=== PATIENT | male | born 1945 | race Caucasian/White ===

== ENCOUNTER → 2016-10-10 | Outpatient (CLI) | payer MEDICARE, OTHER ==
[~2016-10-10] MED LIST: ACHD5005 PO; ALPH1TAB8 PO; ASP325TEC; ASP81TEC PO; CARV6.25; CATHETER FLUSH 10 ML SYR IV PRN; CEPH500C PO; CLOP75TA PO; CLPD75T; CRV6.25T; CTLP20T; FEXO-104 PO; FISH OIL 1,2001 EAC1 PO; FLUT16SP22 NS; GLUC1000 PO; GLUCOSAMINE PO; HYDR-34 PO; HYDR-3812 PO; HYDR-508 PO; IOHEXOL 350 MG/ML 100 ML (OMNIPAQUE 350) VIAL IV ONE; IPRA15SP2; IPRA15SP2 NS; L.AC1CAP6 PO; LAXATIVE OTC; LISI2.5T56 PO; LISINOPRIL 2.5MG; LVT.05T PO; METO25TA PO; METR500T PO; NF-ESOM40C; NFR150C; NS 100 ML (IVPB) BAG IV ONE; NTR.4SL; NTR.4SL SL; OMG1KC; OMG1KC PO; OXYC-12 PO; PARO20TA57 PO; SIME125T PO; SIMV40TA2; SIMV40TA4 PO; SIMV80TA3 PO; SULF1TAB35 PO; TYLENOL #3 PO
[2016-10-10 08:50] LABS: CREATININE SERUM 1.31 MG/DL (0.60-1.30)
--- NOTE | 2016-10-10 13:05 | Diagnostic Imaging Report ---
PROCEDURE: CT abdomen with and without contrast. TECHNIQUE: Multiple contiguous axial CT images of the abdomen were obtained prior to and after intravenous administration of iodinated contrast. INDICATION: Aneurysm. FINDINGS: The previous CTA abdomen/pelvis exam of 02/04/2014 noted a stent within the superior mesenteric artery. The stent is again evident on this study and remains unchanged in position. 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 The infrarenal abdominal aorta itself is somewhat more prominent than noted on the prior exam, but the aorta is not aneurysmally dilated. The aorta measures approximately 2.5 x 2.8 cm in maximum AP and transverse diameters. 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 This vessel measures 1.6 x 1.8 cm. The right renal artery is unremarkable. 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 The celiac axis is within normal limits. The liver is homogeneous and not enlarged. The spleen is surgically absent. The splenules adjacent to the tail of the pancreas seen previously are again evident and no different. The pancreas itself is unremarkable. The right adrenal gland and the right kidney also seem stable when compared to the prior exam. There are multiple cysts associated with the right kidney. The gallbladder is within normal limits. The appendix is not abnormally thickened. The stomach is not fully distended and consequently difficult to assess. There is a small defect in the anterior abdominal wall. A portion of the mesenteric fat has extended through this defect, but there is no incarceration or obstruction of the bowel. As noted on the prior exam, there is diverticulosis of the sigmoid and descending colon without evidence for acute diverticulitis. The urinary bladder and prostate gland are grossly unremarkable. The lung bases are clear. The post-traumatic changes involving the lower thorax on the right seen previously are again evident and unchanged. There is no sign of an acute bony abnormality. IMPRESSION: 1. There is no acute abnormality of the abdomen or pelvis. 2. 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 3. There is mild dilatation of the abdominal aorta when compared to the prior exam, but there is no sign of an aneurysm. There does seem to be mild aneurysmal dilatation of the right common iliac artery, however. 4. The left kidney and spleen are surgically absent. Dictated by: Dictated on workstation # [id number]
--- OUTSIDE RECORDS SUMMARY | 2016-10-10 13:14 | XMS REPORT | Continuity of Care Document ---
Author Author [facility] Organization [facility] Address Unknown Phone Unavailable Allergies Active Description Code Type Severity Reaction Onset Reported/Identified Relationship to Patient Clinical Status Yes Penicillins [id number] Drug Allergy Unknown N/A 08/30/2006 Medications Problems Date Dx Coded Attending Type Code Diagnosis Diagnosed By 07/29/2009 Ot 472.1 07/29/2009 Ot 530.11 07/29/2009 Ot 535.40 07/29/2009 Ot 535.50 07/29/2009 Ot V45.89 03/01/2010 Ot 413.9 03/01/2010 Ot 414.01 03/01/2010 Ot 414.2 03/01/2010 Ot 786.05 03/01/2010 Ot 794.31 03/01/2010 Ot V58.66 03/01/2010 Ot V58.69 09/06/2010 Ot 726.2 02/11/2011 Ot 441.02 02/11/2011 Ot 562.11 02/11/2011 Ot 569.5 02/11/2011 Ot V10.52 02/11/2011 Ot V45.73 08/01/2011 Ot 842.10 08/01/2011 Ot E000.0 08/01/2011 Ot E849.7 08/01/2011 Ot E927.0 08/01/2011 Ot V57.21 08/10/2011 Ot 842.10 08/10/2011 Ot E000.0 08/10/2011 Ot E849.7 08/10/2011 Ot E927.0 08/10/2011 Ot V57.21 03/10/2012 Ot 805.2 03/10/2012 Ot 922.1 03/10/2012 Ot 959.19 03/10/2012 Ot E000.8 03/10/2012 Ot E828.2 03/10/2012 Ot E849.0 05/14/2012 Ot 530.85 05/14/2012 Ot 532.90 05/14/2012 Ot 562.10 05/14/2012 Ot 600.00 05/14/2012 Ot V12.72 05/14/2012 Ot V45.89 05/14/2012 Ot V67.09 05/16/2012 Ot 724.2 05/16/2012 Ot 724.4 05/16/2012 Ot 843.9 05/16/2012 Ot E000.8 05/16/2012 Ot E828.2 05/16/2012 Ot E849.0 05/16/2012 Ot V57.1 07/21/2013 JOHN DOSUSAN Ot 726.0 07/21/2013 JOHN DOSUSAN Ot V57.1 08/05/2013 JOHN DOSUSAN Ot 726.2 08/05/2013 JOHN DO, SUSAN Hernandez Ot 727.61 08/05/2013 JOHN DO, SUSAN Hernandez Ot 727.62 11/05/2013 JOHN DOSUSAN Ot V57.1 11/05/2013 JOHN DOSUSAN Ot V58.78 03/26/2014 EUSEBIA BRADY, CHULA Melendez Ot 724.5 03/26/2014 CHULA LAWS MD Ot V57.1 05/05/2014 JOHN DOSUSAN Ot 354.0 05/05/2014 JOHN DOSUSAN Ot 727.03 08/04/2014 JOHN DOSUSAN Ot 717.7 08/04/2014 JOHN DOSUSAN Ot 836.0 08/04/2014 JOHN DOSUSAN Ot E000.8 08/04/2014 JOHN DOSUSAN Ot E928.9 04/30/2015 Ot 410.40 04/30/2015 Ot 414.01 04/30/2015 Ot 780.79 04/30/2015 Ot 189.0 04/30/2015 Ot 789.00 04/30/2015 Ot 715.31 04/30/2015 Ot 272.4 04/30/2015 Ot 414.01 04/30/2015 Ot 433.10 04/30/2015 Ot V58.69 04/30/2015 Ot 727.61 04/30/2015 Ot V72.83 04/30/2015 Ot V74.8 04/30/2015 Ot 189.0 04/30/2015 Ot 188.9 04/30/2015 Ot 257.2 04/30/2015 Ot 272.4 04/30/2015 Ot 401.9 04/30/2015 Ot 600.00 04/30/2015 Ot V58.69 04/30/2015 Ot 189.0 04/30/2015 Ot 557.0 04/30/2015 Ot 562.10 04/30/2015 Ot V45.89 04/30/2015 Ot 786.09 04/30/2015 Ot 786.50 04/30/2015 Ot 906.3 04/30/2015 Ot E000.8 04/30/2015 Ot E849.0 04/30/2015 Ot E929.1 04/30/2015 Ot V72.84 04/30/2015 Ot 786.50 04/30/2015 Ot 959.9 04/30/2015 Ot E000.8 04/30/2015 Ot E819.9 04/30/2015 Ot 285.9 04/30/2015 Ot 414.00 04/30/2015 LEONARDA BRADY, ANGELICA Faulkner Ot 189.0 04/30/2015 [facility]EL [facility]AC[facility] Ot 272.4 04/30/[address] [facility], ALI FACP CCDS Ot 414.01 04/30/2015 LEONARDA BRADY, ANGELICA Faulkner Ot 272.4 04/30/2015 LEONARDA BRADY, ANGELICA Faulkner Ot 414.01 04/30/2015 CHERELLE BARBER [employer] DEFENSE ATTORNEY Ot 433.10 04/30/2015 JOHN DO, SUSAN F Ot 726.0 04/30/2015 JOHN DO, SUSAN F Ot V72.81 04/30/2015 JOHN DO, SUSAN F Ot V74.8 04/30/2015 EUSEBIA BRADY, CHULA Melendez Ot 562.11 04/30/2015 LEONARDA BRADY, ANGELICA Faulkner Ot 189.0 04/30/2015 LEONARDA BRADY, ANGELICA Faulkner Ot 600.00 04/30/2015 CHERELLE BARBER Ot 272.4 04/30/2015 EUSEBIA BRADY, CHULA Melendez Ot 715.36 04/30/2015 EUSEBIA BRADY, CHULA Melendez Ot 719.46 04/30/2015 SOFIYA BRADY, SUSAN Dabry Ot 442.89 04/30/2015 SOFIYA BRADY, SUSAN S Ot 447.70 04/30/2015 SOFIYA BRADY, SUSAN S Ot 553.1 04/30/2015 SOFIYA BRADY, SUSAN S Ot 557.0 04/30/2015 SOFIYA BRADY, SUSAN S Ot 562.10 04/30/2015 SOFIYA BRADY, SUSAN S Ot 442.89 04/30/2015 CHERELLE BARBER INSURANCE DEFENSE ATTORNEY Ot 272.4 04/30/2015 LEONARDA BRADY, ANGELICA Faulkner Ot 189.0 04/30/2015 LEONARDA BRADY, ANGELICA Faulkner Ot 257.2 04/30/2015 LEONARDA BRADY, ANGELICA Faulkner Ot 600.00 04/30/2015 CHERELLE BARBER [employer] DEF[employer] ATTORNEY Ot 276.7 04/30/2015 JOHN DO, SUSAN F Ot 354.0 04/30/2015 JOHN DO, SUSAN F Ot 727.03 04/30/2015 JOHN DO, SUSAN F Ot V72.83 04/30/2015 JOHN DO, SUSAN F Ot V74.8 04/30/2015 LEONARDA BRADY, ANGELICA Faulkner Ot 189.0 04/30/2015 JOHN DO, SUSAN F Ot 717.1 04/30/2015 JOHN DO, SUSAN F Ot 717.2 04/30/2015 JOHN DO, SUSAN F Ot 717.40 04/30/2015 JOHN DO, SUSAN F Ot 717.6 04/30/2015 JOHN DO, SUSAN F Ot 719.06 04/30/2015 JOHN DO, SUSAN F Ot 719.46 04/30/2015 JOHN DO, SUSAN F Ot 717.3 04/30/2015 JOHN DO, SUSAN F Ot 717.40 04/30/2015 JOHN DO, SUSAN F Ot V72.83 04/30/2015 JOHN DO, SUSAN F Ot V74.8 05/07/2015 AJAY BRADY, EARL Miles Ot 722.52 05/07/2015 AJAY BRADY, EARL Miles Ot 724.6 05/07/2015 Ot 410.40 05/07/2015 Ot 414.01 05/07/2015 Ot 780.79 05/07/2015 Ot 189.0 05/07/2015 Ot 789.00 05/07/2015 Ot 715.31 05/07/2015 Ot 272.4 05/07/2015 Ot 414.01 05/07/2015 Ot 433.10 05/07/2015 Ot V58.69 05/07/2015 Ot 727.61 05/07/2015 Ot V72.83 05/07/2015 Ot V74.8 05/07/2015 Ot 189.0 05/07/2015 Ot 188.9 05/07/2015 Ot 257.2 05/07/2015 Ot 272.4 05/07/2015 Ot 401.9 05/07/2015 Ot 600.00 05/07/2015 Ot V58.69 05/07/2015 Ot 189.0 05/07/2015 Ot 557.0 05/07/2015 Ot 562.10 05/07/2015 Ot V45.89 05/07/2015 Ot 786.09 05/07/2015 Ot 786.50 05/07/2015 Ot 906.3 05/07/2015 Ot E000.8 05/07/2015 Ot E849.0 05/07/2015 Ot E929.1 05/07/2015 Ot V72.84 05/07/2015 Ot 786.50 05/07/2015 Ot 959.9 05/07/2015 Ot E000.8 05/07/2015 Ot E819.9 05/07/2015 Ot 285.9 05/07/2015 Ot 414.00 05/07/2015 LEONARDA BRADY, ANGELICA Faulkner Ot 189.0 05/07/2015 CHANTEL BRADY FAC, [facility] CCDS Ot 272.4 05/07/2015 CHANTEL BRADY FAC, ALI FACP CCDS Ot 414.01 05/07/2015 LEONARDA BRADY, ANGELICA Faulkner Ot 272.4 05/07/2015 LEONARDA BRADY, ANGELICA Faulkner Ot 414.01 05/07/2015 CHERELLE BARBER [employer] ATTORNEY Ot 433.10 05/07/2015 JOHN DO, SUSAN F Ot 726.0 05/07/2015 JOHN DO, SUSAN F Ot V72.81 05/07/2015 JOHN DO, SUSAN F Ot V74.8 05/07/2015 EUSEBIA BRADY, CHULA Melendez Ot 562.11 05/07/2015 LEONARDA BRADY, ANGELICA Faulkner Ot 189.0 05/07/2015 LEONARDA BRADY, ANGELICA Faulkner Ot 600.00 05/07/2015 CHERELLE BARBER [employer] ATTORNEY Ot 272.4 05/07/2015 EUSEBIA BRADY, CHULA Melendez Ot 715.36 05/07/2015 EUSEBIA BRADY, CHULA M Ot 719.46 05/07/2015 SOFIYA BRADY, SUSAN S Ot 442.89 05/07/2015 SOFIYA BRADY, SUSAN S Ot 447.70 05/07/2015 SOFIYA BRADY, SUSAN S Ot 553.1 05/07/2015 SOFIYA BRADY, SUSAN S Ot 557.0 05/07/2015 SOFIYA BRADY, SUSAN S Ot 562.10 05/07/2015 SOFIYA BRADY, SUSAN S Ot 442.89 05/07/2015 CHERELLE BARBER [employer] DEFENSE ATTORNEY Ot 272.4 05/07/2015 LEONARDA BRADY, ANGELICA Faulkner Ot 189.0 05/07/2015 LEONARDA BRADY, ANGELICA A Ot 257.2 05/07/2015 LEONARDA BRADY, ANGELICA A Ot 600.00 05/07/2015 CHERELLE BARBER [employer] DEF[employer] ATTORNEY Ot 276.7 05/07/2015 JOHN DO, SUSAN F Ot 354.0 05/07/2015 JOHN DO, SUSAN F Ot 727.03 05/07/2015 JOHN DO, SUSAN F Ot V72.83 05/07/2015 JOHN DO, SUSAN F Ot V74.8 05/07/2015 LEONARDA BRDAY, ANGELICA A Ot 189.0 05/07/2015 JOHN DO, SUSAN F Ot 717.1 05/07/2015 JOHN DO, SUSAN F Ot 717.2 05/07/2015 JOHN DO, SUSAN F Ot 717.40 05/07/2015 JOHN DO, SUSAN F Ot 717.6 05/07/2015 JOHN DO, SUSAN F Ot 719.06 05/07/2015 JOHN DO, SUSAN F Ot 719.46 05/07/2015 JOHN DO, SUSAN F Ot 717.3 05/07/2015 JOHN DO, SUSAN F Ot 717.40 05/07/2015 JOHN DO, SUSAN F Ot V72.83 05/07/2015 JOHN DO, SUSAN F Ot V74.8 05/07/2015 ARABELLA ESCAMILLA [employer] ATTORNEY Ot 724.2 05/20/2015 ARABELLA ESCAMILLA [employer] ATTORNEY Ot 724.2 06/11/2015 VERITO DAVID Ot E78.5 06/11/2015 VERITO DAVID Ot I10 06/11/2015 VERITO DAVID Ot M79.671 06/11/2015 VERITO DAVID Ot Z79.82 06/11/2015 VERITO DAVID Ot Z79.899 06/23/2015 CHERELLE BARBER [employer] DEFENSE ATTORNEY Ot E78.5 06/23/2015 CHERELLE BARBER [employer] DEFENSE ATTORNEY Ot I25.10 06/23/2015 CHERELLE BARBER [employer] DEFENSE ATTORNEY Ot I77.9 06/23/2015 ABHISHEKCHERELLE CLAROS [employer]ENSE ATTORNEY Ot R53.83 12/07/2015 LEYDI BRADY, CARMEN Madsen Ot H11.32 CONJUNCTIVAL HEMORRHAGE, LEFT EYE 12/28/2015 CARMEN HOLLEY MD Ot H11.32 CONJUNCTIVAL HEMORRHAGE, LEFT EYE Procedures Results Encounters ACCT No. Visit Date/Time Discharge Status Pt. Type Provider Facility Loc./Unit Complaint [id number] 12/05/2015 08:51:00 2015 09:41:00 DIS Emergency CARMEN HOLLEY MD [facility] ER [id number] 06/11/2015 17:00:00 2014 20:23:00 DIS Emergency VERITO DAVID [facility] ER [id number] 06/02/2015 08:40:00 2014 23:59:59 CLS Outpatient CHERELLE BARBER [facility] CARD [id number] 05/07/2015 08:24:00 2014 09:22:00 DIS Outpatient EARL MOSS MD [facility] CARD [id number] 04/30/2015 08:20:00 2014 23:59:59 CLS Outpatient ARABELLA ESCAMILLA [facility] RAD [id number] 08/04/2014 07:57:00 2013 13:20:00 DIS Outpatient SUSAN LOPEZ DO [facility] [id number] 07/21/2014 10:20:00 2013 23:59:59 CLS Outpatient JOHN SUSAN DARLING [facility] PREOP [id number] 05/21/2014 15:27:00 2013 23:59:59 CLS Outpatient SUSAN LOPEZ DO [facility] RAD [id number] 05/05/2014 08:30:00 2013 13:25:00 DIS Outpatient SUSAN LOPEZ DO [facility] [id number] 04/28/2014 11:56:00 2013 23:59:59 CLS Outpatient SUSAN LOPEZ DO [facility] PREOP [id number] 04/23/2014 10:55:00 2013 23:59:59 CLS Outpatient ANGELICA BROWER MD [facility] CARD [id number] 03/26/2014 14:28:00 2013 23:59:59 CLS Outpatient CHERELLE BARBER [facility] LAB [id number] 02/03/2014 15:28:00 2013 08:37:00 DIS Outpatient CHULA LAWS MD [facility] REHAB [id number] 03/23/2014 06:57:00 2013 23:59:59 CLS Outpatient CHERELLE BARBER [facility] LAB [id number] 03/23/2014 06:56:00 2013 23:59:59 CLS Outpatient ANGELICA BROWER MD [facility] LAB [id number] 02/04/2014 06:58:00 2013 23:59:59 CLS Outpatient SUSAN ARRIAZA MD [facility] RAD [id number] 02/02/2014 07:36:00 2013 23:59:59 CLS Outpatient SUSAN ARRIAZA MD [facility] LAB [id number] 01/20/2014 15:49:00 2013 23:59:59 CLS Outpatient CHULA LAWS MD [facility] RAD [id number] 10/14/2013 14:09:00 2013 08:30:00 DIS Outpatient JOHN SUSAN DARLING [facility] REHAB [id number] 09/29/2013 07:04:00 2013 23:59:59 CLS Outpatient ABHISHEKHYACINTHCHERELLE [facility] LAB [id number] 09/29/2013 06:56:00 2013 23:59:59 CLS Outpatient ANGELICA BROWER MD [facility] LAB [id number] 08/05/2013 10:57:00 2012 20:00:00 DIS Outpatient JOHN SUSAN DARLING [facility] [id number] 07/31/2013 11:50:00 2012 23:59:59 CLS Outpatient SUSAN LOPEZ DO [facility] PREOP [id number] 07/28/2013 15:49:00 2012 23:59:59 CLS Outpatient CHULA LAWS MD [facility] RAD [id number] 07/01/2013 14:15:00 2012 08:20:00 DIS Outpatient SUSAN LOPEZ DO [facility] REHAB [id number] 05/28/2013 07:53:00 2012 23:59:59 CLS Outpatient CHERELLE BARBER [facility] RAD [id number] 04/08/2013 10:55:00 2012 23:59:59 CLS Outpatient ANGELICA BROWER MD [facility] RAD [id number] 04/03/2013 07:21:00 2012 23:59:59 CLS Outpatient ANGELICA BROWER MD [facility] LAB [id number] 04/03/2013 07:14:00 2012 23:59:59 CLS Outpatient CHANTEL BRADY FACCEPIFANIO FACP CCDS [facility] LAB [id number] 01/28/2013 15:34:00 2012 23:59:59 CLS Outpatient [id number] 10/10/2016 09:15:00 KINSEY Arteaga APRN [facility] RAD HISTORY OF AAA [id number] 04/30/2015 08:21:00 Document Registration [id number] 04/30/2015 08:20:00 Document Registration [id number] 04/30/2015 08:20:00 Document Registration [id number] 04/30/2015 08:20:00 Document Registration [id number] 04/30/2015 08:20:00 Document Registration [id number] 04/30/2015 08:20:00 Document Registration [id number] 04/30/2015 08:20:00 Document Registration [id number] 04/30/2015 08:20:00 Document Registration [id number] 10/16/2014 07:20:00 Document Registration [id number] 12/04/2012 07:33:00 Document Registration [id number] 08/28/2012 09:36:00 Document Registration [id number] 05/16/2012 14:38:00 Document Registration [id number] 05/14/2012 05:36:00 Document Registration [id number] 05/13/2012 08:27:00 Document Registration [id number] 03/10/2012 09:29:00 Document Registration [id number] 08/03/2011 09:30:00 Document Registration [id number] 05/29/2011 11:02:00 Document Registration [id number] 05/23/2011 05:40:00 Document Registration [id number] 02/09/2011 20:23:00 Document Registration [id number] 09/05/2010 05:36:00 Document Registration [id number] 08/31/2010 12:04:00 Document Registration [id number] 08/29/2010 09:50:00 Document Registration [id number] 07/05/2010 09:18:00 Document Registration [id number] 05/31/2010 09:50:00 Document Registration [id number] 03/01/2010 05:33:00 Document Registration [id number] 02/24/2010 08:17:00 Document Registration [id number] 02/15/2010 07:31:00 Document Registration [id number] 07/29/2009 05:49:00 Document Registration
== END ==
LOC: RAD 08:17
PROVIDERS: ATTEND Nurse Practitioner Family
DX: I77.811 Abdominal aortic ectasia (principal); Z13.89 Encounter for screening for other disorder
CPT/HCPCS: 36415; 74170; 82565; 84520

== ENCOUNTER 2017-02-13 08:45 | Outpatient (RCR) | payer MEDICARE, OTHER ==
[~2017-02-13 08:45] MED LIST changes: -CATHETER FLUSH 10 ML SYR IV PRN; -IOHEXOL 350 MG/ML 100 ML (OMNIPAQUE 350) VIAL IV ONE; -NS 100 ML (IVPB) BAG IV ONE
== END 2017-02-13 10:51 | disposition home or self-care (01) ==
PROVIDERS: ATTEND Nurse Practitioner Family
DX: M25.562 Pain in left knee (principal); Z98.890 Other specified postprocedural states

== ENCOUNTER → 2017-09-17 | Outpatient (CLI) | payer MEDICARE, OTHER ==
[~2017-09-17] MED LIST changes: -HYDR-3812 PO
--- NOTE | 2017-09-17 15:39 | Diagnostic Imaging Report ---
PROCEDURE: MRI left upper extremity without contrast. TECHNIQUE: Multiplanar, multisequence non contrast-enhanced MRI of the left upper extremity was accomplished. INDICATION: Palmar left hand pain. Patient sustained injury to the left hand in 1990 with surgical repair. FINDINGS: Postsurgical changes are noted involving the fifth metacarpal. There appears to be surgical hardware producing a moderate amount of artifact. Remaining metacarpals demonstrate normal signal intensity. No marrow edema or fracture is seen. The visualized proximal phalanges appear to be intact. The carpal bones are intact. No marrow edema is detected. An oil marker was placed at the area of pain in the palmar aspect of the left hand. No underlying soft tissue mass or fluid collection is seen. The flexor tendons deep to the marker appear to be intact. IMPRESSION: Postsurgical changes to the fifth metacarpal. No other significant abnormality is detected. Dictated by: Dictated on workstation # [id number]
== END ==
LOC: RAD 13:01
PROVIDERS: ATTEND Orthopaedic Surgery
DX: M79.642 Pain in left hand (principal); Z98.890 Other specified postprocedural states; Z87.828 Personal history of other (healed) physical injury and trauma
CPT/HCPCS: 73218

== ENCOUNTER → 2017-10-23 | Outpatient (CLI) | payer MEDICARE, OTHER | LOC: CARD 12:00 | PROVIDERS: ATTEND Nurse Practitioner Family | DX: I25.10 Atherosclerotic heart disease of native coronary artery without angina pectoris (principal); I34.0 Nonrheumatic mitral (valve) insufficiency | CPT/HCPCS: 93306 ==

== ENCOUNTER 2018-07-23 09:17 | Outpatient (RCR) | payer MEDICARE, OTHER | END 2018-07-26 11:57 | disposition home or self-care (01) | PROVIDERS: ATTEND Nurse Practitioner | DX: M54.41 Lumbago with sciatica, right side (principal) ==

== ENCOUNTER → 2018-08-26 | Outpatient (CLI) | payer MEDICARE, OTHER ==
--- NOTE | 2018-08-26 17:05 | Diagnostic Imaging Report ---
INDICATION: Back pain, no history of trauma. AP and lateral views of the thoracic spine are obtained. The thoracic vertebrae are normal in height and alignment. There are bridging syndesmophytes throughout the thoracic spine compatible with diffuse idiopathic skeletal hyperostosis. There is no compression deformity or overt destructive bony lesion. IMPRESSION: No evidence of fracture, destructive bony lesion, or malalignment. Evidence of diffuse idiopathic skeletal hyperostosis. Dictated by: Dictated on workstation # [id number]
--- NOTE | 2018-08-26 17:52 | Diagnostic Imaging Report ---
INDICATION: Back pain. AP and lateral views of the lumbar spine are obtained. The lumbar vertebrae are normal in height and alignment. There are prominent osteophytes throughout the lumbar region. There is no significant disc space narrowing. There is no compression deformity or acute finding. A presumed SMA stent is visualized. The appearance is not changed compared with 04/30/2015. IMPRESSION: Degenerative changes of the lumbar spine with no acute abnormality and no change from 04/30/2015. Dictated by: Dictated on workstation # [id number]
== END ==
LOC: RAD 16:12
PROVIDERS: ATTEND Physician Assistant
DX: M47.816 Spondylosis without myelopathy or radiculopathy, lumbar region (principal); M48.14 Ankylosing hyperostosis [Forestier], thoracic region
CPT/HCPCS: 72070; 72100

== ENCOUNTER → 2018-11-27 | Outpatient (CLI) | payer MEDICARE, OTHER ==
--- NOTE | 2018-11-27 10:18 | Diagnostic Imaging Report ---
PROCEDURE: MRI lumbar spine. TECHNIQUE: Multiplanar, multisequence MRI of the lumbar spine was performed without contrast. INDICATION: Back pain. There are no previous MRI lumbar spine examinations available for comparison. FINDINGS: The plain film examination of the lumbar spine performed on 08/26/2018 noted osteophyte formation, but failed to show any sign of an acute abnormality. On the T2 sagittal images of this exam, there is slight retrolisthesis of L3 with respect to L4. There is also desiccation of the disc at this level and there is a disc bulge essentially. The AP diameter of thecal sac is narrowed to 9.1 MM. There is mild narrowing of the neural foramen bilaterally as well. There is also trefoil stenosis at the L4-L5 level. The AP diameter of thecal sac is narrowed to 7.4 MM. There is also narrowing of the neural foramen bilaterally, particularly on the left. At the L5-S1 level, there is a disc bulge essentially. The disc indents the ventral aspect of the thecal sac and narrows the AP diameter of 9.4 MM. There is no significant neural foraminal narrowing at this level. There is no evidence for spinal stenosis or nerve root encroachment at L1-L2 or L2-L3. There is no abnormal signal arising from the cord or vertebral bodies to indicate an acute abnormality. All of the osseous structures have somewhat of a mottled appearance. This is more likely a developmental variant than due to a marrow replacement process. There is no sign of a paraspinal mass. IMPRESSION: 1. There is degenerative disc, ligamentous and bony disease at L4-L5, L3-L4 and to a lesser degree at L5-S1. The L4-L5 level appears to be the most significantly affected. 2. There is no sign of an acute bony abnormality or cord lesion. Dictated by: Dictated on workstation # [id number]
== END ==
LOC: RAD 08:22
PROVIDERS: ATTEND Anesthesiology Pain Medicine
DX: M51.17 Intervertebral disc disorders with radiculopathy, lumbosacral region (principal); M89.9 Disorder of bone, unspecified
CPT/HCPCS: 72148

== ENCOUNTER → 2019-06-24 | Outpatient (CLI) | payer MEDICARE, OTHER ==
[~2019-06-24] VITALS: Ht 183 cm; Wt 82.0 kg
[~2019-06-24] MED LIST changes: +FLU QUADRIvalent (5+ YOA) 2019-2020 (AFLURIA) 0.5 ML IM ONE; +REGADENOSON 0.4 MG/5 ML SYR (LEXISCAN) IV ONE
[2019-06-24] MEDS: CATHETER FLUSH 10 ML SYR IV PRN ×2 (12:09→13:07)
[2019-06-24 13:05] VITALS: BP 182/97
--- NOTE | 2019-06-24 14:38 | STRESS TEST ---
DATE OF SERVICE: 06/24/2019 RESTING AND POST REGADENOSON TECHNETIUM-99M TETROFOSMIN SPECT CT IMAGING ORDERING PHYSICIAN: Chantale Joshua APRN PRIMARY PHYSICIAN: Dr. Stark. OTHER PHYSICIAN: Dr. Golden. CLINICAL DIAGNOSIS: Coronary artery disease. Baseline images were carried out after injection of 10.07 mCi of technetium-99m Tetrofosmin. This was followed by 0.4 mg regadenoson and 30.2 mCi of technetium-99m Tetrofosmin. The electrocardiogram showed sinus rhythm at baseline. It did not change significantly with the regadenoson infusion. Review of images at rest and following stress indicates a predominantly fixed apical perfusion defect. Gated images show localized apical akinesis. Left ventricular ejection fraction is calculated to be 59%. Left ventricular end diastolic volume is 67 mL. TID is absent (1.14). CONCLUSIONS: 1. Apical infarction with minimal nima-infarct ischemia. 2. Apical akinesis. 3. Left ventricular ejection fraction is calculated to be 59%. Job ID: [id number] DocumentID: [id number] Dictated Date: 06/24/2019 14:26:59 Claim Approver Date: 06/24/2019 14:36:35 Dictated By: EPIFANIO GOLDEN MD, MA, FACP, FACC,
== END ==
LOC: CARD 11:32
PROVIDERS: ATTEND Nurse Practitioner Family
DX: I21.29 ST elevation (STEMI) myocardial infarction involving other sites (principal); I51.89 Other ill-defined heart diseases; I25.10 Atherosclerotic heart disease of native coronary artery without angina pectoris
CPT/HCPCS: 78452; 93017

== ENCOUNTER 2019-08-27 11:19 | Outpatient (CLI) | payer MEDICARE, OTHER ==
[~2019-08-27] VITALS: Ht 180 cm; Wt 84.1 kg
[~2019-08-27 11:19] MED LIST changes: -FLU QUADRIvalent (5+ YOA) 2019-2020 (AFLURIA) 0.5 ML IM ONE; -REGADENOSON 0.4 MG/5 ML SYR (LEXISCAN) IV ONE
[2019-08-27 11:39] VITALS: BP 125/80
[2019-08-27 12:12] LABS: BASOPHILS # (AUTO) 0.1 10^3/uL (0.0-0.1); BASOPHILS % (AUTO) 1 % (0-10); EOSINOPHILS # (AUTO) 0.5 10^3/uL (0.0-0.3); EOSINOPHILS % (AUTO) 6 % (0-10); HEMATOCRIT 40 % (40-54); HEMOGLOBIN 13.2 G/DL (13.3-17.7); LYMPHOCYTES # (AUTO) 2.7 X 10^3 (1.0-4.0); LYMPHOCYTES % (AUTO) 34 % (12-44); MEAN CORPUSCULAR HEMOGLOBIN 31 PG (25-34); MEAN CORPUSCULAR HGB CONC 33 G/DL (32-36); MEAN CORPUSCULAR VOLUME 96 FL (80-99); MEAN PLATELET VOLUME 10.5 FL (7.4-10.4); MONOCYTES # (AUTO) 1.3 X 10^3 (0.0-1.0); MONOCYTES % (AUTO) 17 % (0-12); NEUTROPHILS # (AUTO) 3.2 X 10^3 (1.8-7.8); NEUTROPHILS % (AUTO) 42 % (42-75); PLATELET COUNT 241 10^3/uL (130-400); RED CELL DISTRIBUTION WIDTH 13.4 % (10.0-14.5); WHITE BLOOD COUNT 7.8 10^3/uL (4.3-11.0)
[2019-08-27 12:13] LABS: BILIRUBIN,URINE NEGATIVE (NEGATIVE); CLARITY,URINE CLEAR; COLOR,URINE YELLOW; GLUCOSE, URINE (UA) NEGATIVE (NEGATIVE); KETONES,URINE NEGATIVE (NEGATIVE); LEUKOCYTE ESTERASE ,URINE NEGATIVE (NEGATIVE); NITRITE,URINE NEGATIVE (NEGATIVE); PH,URINE 5.5 (5-9); PROTEIN,URINE NEGATIVE (NEGATIVE)
[2019-08-27 12:21] LABS: BACTERIA,URINE NEGATIVE /HPF
[2019-08-27 12:26] LABS: INR 1.1 (0.8-1.4); PROTHROMBIN TIME PATIENT 14.6 SEC (12.2-14.7)
[2019-08-27 12:30] LABS: CALCIUM 8.7 MG/DL (8.5-10.1); CREATININE SERUM 1.3 MG/DL (0.60-1.30); POTASSIUM 4.6 MMOL/L (3.6-5.0)
--- NOTE | 2019-08-27 12:35 | Diagnostic Imaging Report ---
INDICATION: Osteoarthritis. PA and lateral views were obtained FINDINGS: The heart size, mediastinal configuration, and pulmonary vascularity are within normal limits. There is no pleural effusion, pneumothorax, or pneumonia. The osseous structures are unremarkable. IMPRESSION: No acute cardiopulmonary abnormality. Dictated by: Dictated on workstation # [id number]
[2019-08-29] MEDS ORDERED: PARO20TA5 PO (12:52)
[2019-08-29] MEDS ORDERED: METO-387 PO (12:52)
[2019-08-29] MEDS ORDERED: ASPI-999 PO (12:52)
[2019-08-29] MEDS ORDERED: NITR0.4T42 SL (12:52)
[2019-08-29] MEDS ORDERED: SIMV40TA4 PO (12:52)
[2019-08-29] MEDS ORDERED: LEVO50TA6 PO (12:52)
[2019-08-29] MEDS ORDERED: SIME125T PO (15:06)
== END 2019-08-27 15:00 ==
LOC: PREOP 11:19
PROVIDERS: ATTEND Orthopaedic Surgery
DX: Z01.818 Encounter for other preprocedural examination (principal); M17.11 Unilateral primary osteoarthritis, right knee; R53.83 Other fatigue; I10 Essential (primary) hypertension; M79.661 Pain in right lower leg; Z22.322 Carrier or suspected carrier of Methicillin resistant Staphylococcus aureus; Z11.2 Encounter for screening for other bacterial diseases
CPT/HCPCS: 36415; 71046; 80048; 81000; 85025; 85610; 86850; 86900; 86901; 87081; 93005

== ENCOUNTER 2019-09-09 06:00 | Inpatient (IN) | payer MEDICARE, OTHER ==
--- NOTE | 2019-08-29 15:26 | NUR ---
PREOP SENT OVER A MEDICATION LIST THE PATIENT BROUGHT IN. I CALLED [facility] TO VERIFY WHAT HAS BEEN FILLED RECENTLY. HUMAN FILLED: 07-31-19 SIMVASTATIN 40MG HS #90 07-28-19 METOPROLOL ER 25MG 1/2 BID #90 07-21-19 LEVOTHYROXINE 50MCG DAILY #90 06-02-19 PAXIL 20MG DAILY #90 HE TAKES BEANO AND GAS X PRN OTC AND ASPIRIN 81MG DAILY THAT WAS ON HIS LIST. NO DISCREPANCIES WERE FOUND WITH WHAT WAS ENTERED BY PREOP, I DID NOT CALL AND RE INTERVIEW THE PATIENT AT THIS TIME.
[~2019-09-09] VITALS: Ht 180 cm; Wt 84.1 kg
[2019-09-09] VITALS (14 sets, daily range): BP systolic 100–146; BP diastolic 58–88
[~2019-09-09 06:00] MED LIST changes: +ASPI-999 PO; +LEVO50TA6 PO; +MTP25TSR PO; +NITR0.4T42 SL; +PARO20TA5 PO; +SIMV40TA25 PO; -SIMV40TA4 PO
[2019-09-09] MEDS ORDERED: CELECOXIB 100 MG (CeleBREX) CAP PO ONE ×2 (06:30→06:51)
[2019-09-09] MEDS ORDERED: ONDANSETRON 4 MG/2 ML (SDV) Z0FRAN IVP ONE (06:30)
[2019-09-09] MEDS ORDERED: DEXAMETHASONE 4 MG/ML SDV (DECADRON) IV ONE (06:30)
[2019-09-09] MEDS ORDERED: CLINDAMYCIN 900 MG/50 ML IVPB 50 ML IV ONE (06:30)
[2019-09-09] MEDS ORDERED: GABAPENTIN 600 MG (NEURONTIN) TAB PO ONE (06:30)
[2019-09-09] MEDS ORDERED: ONDANSETRON 4 MG/2 ML (SDV) Z0FRAN ONE ×2 (06:51→06:54)
[2019-09-09] MEDS ORDERED: GABAPENTIN 600 MG (NEURONTIN) TAB ONE (06:51)
[2019-09-09] MEDS ORDERED: DEXAMETHASONE 10 MG/ML (DECADRON) 1 ML VIAL ONE (06:54)
[2019-09-09] MEDS ORDERED: fentaNYL INJECTION 100 MCG/2 ML AMP ONE (06:54)
[2019-09-09] MEDS ORDERED: MIDAZOLAM 2 MG/2 ML (VERSED) VIAL ONE (06:54)
[2019-09-09] MEDS ORDERED: LIDOCAINE PF 2% 5 ML (XYLOCAINE) VIAL ONE (06:54)
[2019-09-09] MEDS ORDERED: proPOfol 200 MG/20 ML (DIPRIVAN) VIAL IV ONE (06:54)
[2019-09-09] MEDS ORDERED: BUPIVACAINE 0.5% 30 ML (SENSORCAINE) VIAL ONE (06:54)
[2019-09-09] MEDS ORDERED: DEXAMETHASONE 4 MG/ML SDV (DECADRON) ONE (06:58)
[2019-09-09] MEDS: LACTATED RINGERS 1,000 ML IV PRN ×2 (07:00→08:41)
[2019-09-09] MEDS ORDERED: GENTAMICIN 40 MG/ML 2 ML INJ SDV ONE (07:03)
[2019-09-09] MEDS ORDERED: NEO/POLY/BAC (NEOSPORIN) OINT 15 GM TUBE ONE (07:03)
[2019-09-09] MEDS ORDERED: SEVOFLURANE (ULTANE) 15 ML INHAL SOLN ONE ×3 (07:09→10:05)
[2019-09-09] MEDS ORDERED: TRANEXAMIC ACID 100 MG/ML 10 ML INJECTION IV ONE (07:35)
[2019-09-09] MEDS ORDERED: INTRA-ARTICULAR IU ONE ×4 (07:45)
[2019-09-09] MEDS ORDERED: diphenhydrAMINE 50 MG/ML INJ (BENADRYL) IV PRN (08:00)
[2019-09-09] MEDS ORDERED: MILK OF MAGNESIA 400 MG/5 ML 30 ML UDC PO PRN (08:00)
[2019-09-09] MEDS ORDERED: MAGNESIUM CITRATE 300 ML BTL PO ONE (08:00)
[2019-09-09] MEDS ORDERED: BISACODYL 10 MG SUPP (DULCOLAX) PR PRN (08:00)
[2019-09-09] MEDS ORDERED: BACLOFEN 10 MG (LIORESAL) TAB PO PRN (08:00)
[2019-09-09] MEDS ORDERED: LORATADINE (CLARITIN) 10 MG TAB PO PRN (08:00)
--- NOTE | 2019-09-09 08:07 | Progress Note-Pre Operative ---
Pre-Operative Progress Note H&P Reviewed The H&P was reviewed, patient examined and no changes noted. Date Seen by Provider: Sep 09, 2019 Time Seen by Provider: 07:50 Date H&P Reviewed: Sep 09, 2019 Time H&P Reviewed: 07:50 Pre-Operative Diagnosis: Primary Ostoearthritis right knee SUSAN LOPEZ DO Sep 09, 2019 08:07
[2019-09-09] MEDS ORDERED: NITROGLYCERIN 0.4 MG SL TABS BTL 25'S SL PRN (08:15)
[2019-09-09] MEDS ORDERED: PARoxetine 20 MG (PAXIL) TAB PO SCH (09:00)
[2019-09-09] MEDS ORDERED: ASPIRIN E.C. 325 MG (ECOTRIN) TABLET PO SCH (09:00)
--- NOTE | 2019-09-09 10:00 | Progress Note-Post Operative ---
Post-Operative Progess Note Surgeon (s)/Jazz Musician (s) Surgeon SUSAN LOPEZ DO Jazz Musician: Jose Matos NURSE-C Pre-Operative Diagnosis Primary Ostoearthritis right knee Post-Operative Diagnosis same Procedure & Operative Findings Date of Procedure 09/09/19 Procedure Performed/Findings Right Total Knee Arthroplasty Anesthesia Type General with femoral and genicular block Estimated Blood Loss Estimated blood loss (mL): 50 ml Specimens/Packing Specimens Removed none SUSAN LOPEZ DO Sep 09, 2019 10:00
[2019-09-09] MEDS ORDERED: PROMETHAZINE INJ 25 MG/ML (PHENERGAN) AMP IVP ONE (10:30)
[2019-09-09] MEDS ORDERED: HYDROmorphone 2 MG/ML VIAL (DILAUDID) IV ONE (10:30)
[2019-09-09] MEDS ORDERED: ONDANSETRON 4 MG/2 ML (SDV) Z0FRAN IVP PRN (10:30)
[2019-09-09] MEDS ORDERED: morphine INJ 10 MG/ML 1ML (SYR OR VIAL) IVP ONE (10:30)
[2019-09-09] MEDS ORDERED: morphine INJ 10 MG/ML 1ML (SYR OR VIAL) ONE (10:33)
[2019-09-09] MEDS ORDERED: KETOROLAC 30 MG/ML VIAL ONE (10:33)
[2019-09-09] MEDS: KETOROLAC 30 MG/ML VIAL IV SCH ×3 (10:46→23:34)
--- NOTE | 2019-09-09 11:30 | NUR ---
BORA LUEVANO admitted to room 427-1, with an admitting diagnosis of R total knee, on 09/09/19 from surgery, accompanied by Staff .BORA LUEVANO introduced to surroundings, call light, bed controls, phone, TV, temperature control, lights, meal times, smoking policy, visitor policy, side rail policy, bathrooms and showers. Patient Rights given to patient in the handbook. BORA LUEVANO verbalizes understanding that [facility] is not responsible for the loss or damage to any personal effects or valuables that are kept in the patients posession during their BORA LUEVANO verbalizes understanding of Interdisciplinary Patient Education. Patient and/or family were informed about the Rapid Response Team and its purpose.
--- NOTE | 2019-09-09 12:01 | Diagnostic Imaging Report ---
INDICATION: Right knee surgery. TIME OF EXAM: 11:15 a.m. FINDINGS: Two views of right knee demonstrate postoperative changes of total knee arthroplasty. Prosthetic elements are in good position. No fracture or loosening is seen. There are overlying skin ben. IMPRESSION: Satisfactory postop appearance to the right knee. Dictated by: Dictated on workstation # [id number]
[2019-09-09] MEDS: ASPIRIN 81 MG CHEW (CHILDREN'S ASA) PO SCH (13:39)
[2019-09-09] MEDS: ENOXAPARIN 40 MG/0.4 ML (LOVENOX) SYR SC SCH (13:40)
[2019-09-09] MEDS: ACETAMINOPHEN 500 MG TAB (TYLENOL) PO SCH ×3 (13:40→23:33)
[2019-09-09] MEDS: GABAPENTIN 100 MG (NEURONTIN) CAP PO SCH ×2 (13:40→21:36)
[2019-09-09] MEDS: D5 1/2 NS 1000 ML IV SOLUTION 1,000 ML IV SCH ×2 (13:42→21:41)
[2019-09-09] MEDS ORDERED: PATIENT MAY USE OWN MEDS, ALL MC SCH (16:15)
[2019-09-09] MEDS: CLINDAMYCIN 900 MG/50 ML IVPB 50 ML IV SCH ×2 (16:22→23:34)
[2019-09-09] MEDS: SENNA W/DOCUSATE (SENOKOT S) TABLET PO SCH (21:36)
--- NOTE | 2019-09-09 22:54 | OPERATIVE REPORT ---
DATE OF SERVICE: 09/09/2019 PREOPERATIVE DIAGNOSIS: Primary osteoarthritis, right knee. POSTOPERATIVE DIAGNOSIS: Primary osteoarthritis, right knee. PROCEDURE: Right total knee arthroplasty. SURGEON: Susan Lopez DO CONVENTION PLANNER: HERI Hill. SURGICAL AIRWORTHINESS INSPECTOR DUTIES: Jose Matos, surgical manager was utilized throughout the entire procedure for patient positioning, soft tissue retraction, assistance in placement of total knee implants, wound closure, dressing application and the patient transfer. ANESTHESIA: General with femoral and genicular nerve block. ESTIMATED BLOOD LOSS: 50 mL. COMPLICATIONS: None. OPERATIVE TIME: Please see anesthesia report. INDICATIONS AND FINDINGS: The patient is a 74-year-old male seen with chief complaint of progressive right knee pain. The patient demonstrated varus deformity, a previous arthroscopy of the right knee demonstrating the exposed bone over the medial femoral condyle and medial tibial plateau. He failed conservative treatment for intraarticular steroid injections. Continue formal physical therapy. The patient was taken to surgery where a total knee arthroplasty was performed on the right without complication utilizing the Biomet Veotagguard total knee system with a press fit 65 mm femoral component, 75 mm fixed I-beam cemented tibial component, a 34 mm 3-pronged all polyethylene cemented thin patellar component with an 11 mm anterior stabilized tibial bearing implant. Palacos bone cement was utilized. PROCEDURE IN DETAIL: The patient was seen by anesthesia preoperatively and under ultrasound guidance, a femoral and genicular nerve block was performed on the right to decrease postoperative pain and decrease amount of medication required during the surgical procedure. The patient was transferred to the operating room where general inhalation anesthetic was administered. A well-padded pneumatic tourniquet was placed about the upper aspect of the right thigh. A ChloraPrep and sterile drape of the right lower extremity was performed. The right leg was elevated, exsanguinated and the tourniquet was inflated to 300 mmHg pressure. An anterior longitudinal midline incision was made over the anterior surface of the knee. The incision was deepened through a medial parapatellar incision. The patella was subluxed laterally. Osteophyte formation of the medial femoral condyle was removed with a bone rongeur. A steamboat pilot hole was then drilled in the distal femur and intramedullary marcos was inserted utilizing a 5-degree valgus cutting angle, a distal femoral cutting guide was assembled and distal femoral osteotomy was completed. The distal femur was sized to a 65 mm femoral component, a 4-way cutting block was assembled. Anterior, posterior and chamfer cuts of the distal femur were made. Remnants of medial and lateral menisci as well as the ACL were excised. The tibia was subluxed anteriorly. A steamboat pilot hole was then drilled in the proximal tibia. An intramedullary marcos was inserted measuring off the exposed bone over the proximal medial tibia. A proximal tibial cutting guide was assembled and a proximal tibial osteotomy was completed. Additional subperiosteal dissection was performed and the gap sizer was then tested and the patient demonstrated no varus valgus instability. Osteophytes from the rim of the patella were removed with a bone rongeur. The posterior aspect of patella was resected through a cutting guide and drilled through the drill guide. Provisional components were inserted. The knee was cycled through a range of motion. Rotation of the tibial component was noted and marked on the proximal tibia. Proximal tibia was then broached to accept the I-beam stem portion of the tibial implant. The bony surfaces were irrigated extensively with normal saline solution. Palacos bone cement was then mixed. This was pressurized in the proximal tibia and the tibial component was cemented in place. The femoral component was press fit into place. The knee was taken into full extension with a provisional tibial bearing implant. The patellar component was cemented in place and held with a clamp. Excessive cement was removed. The tourniquet was released. Hemostasis was obtained with electrocautery. Excess of cement was removed from the medial and lateral gutter. The knee again was cycled through a range of motion. The patient's knee was noted to be stable with an 11 mm anterior stabilized tibial bearing implant. The provisional implant was removed. Then, all polyethylene 11 mm anterior stabilized tibial bearing implant was then inserted and locked anteriorly with a locking bar. The knee was additionally irrigated with normal saline solution. The knee was placed in 90 degrees of flexion. The medial retinaculum was closed with multiple interrupted zflfcq-ox-xhsuq sutures of #1 Vicryl reinforced with a running suture of #1 Stratafix. The subcutaneous tissues were closed in layers with 0 and 2-0 Vicryl suture. The skin was closed with stainless steel ben and Adaptic Neosporin bulky dressing was placed about the right knee. The patient was awake and was transported to postop recovery with anesthesia personnel present in satisfactory condition. Job ID: [id number] DocumentID: [id number] Dictated Date: 09/09/2019 20:22:02 Steamboat Inspector Date: 09/09/2019 22:53:26 Dictated By: SUSAN LOPEZ DO
[2019-09-10] MEDS: D5 1/2 NS 1000 ML IV SOLUTION 1,000 ML IV SCH ×2 (03:21→16:31)
[2019-09-10 03:39] VITALS: BP 108/69
[2019-09-10 05:42] LABS: HEMOGLOBIN 10.6 G/DL (13.3-17.7); MEAN PLATELET VOLUME 10.8 FL (7.4-10.4); RED CELL DISTRIBUTION WIDTH 13.1 % (10.0-14.5); WHITE BLOOD COUNT 13.6 10^3/uL (4.3-11.0)
[2019-09-10 05:58] LABS: CALCIUM 7.6 MG/DL (8.5-10.1); CREATININE SERUM 1.38 MG/DL (0.60-1.30); POTASSIUM 4.3 MMOL/L (3.6-5.0)
[2019-09-10] MEDS: GABAPENTIN 100 MG (NEURONTIN) CAP PO SCH ×3 (06:20→21:05)
[2019-09-10] MEDS: ACETAMINOPHEN 500 MG TAB (TYLENOL) PO SCH ×4 (06:22→23:53)
[2019-09-10] MEDS: KETOROLAC 30 MG/ML VIAL IV SCH (06:22)
[2019-09-10] MEDS ORDERED: LEVOTHYROXINE 50 MCG (LEVOTHROID) TAB PO SCH (06:30)
--- NOTE | 2019-09-10 07:33 | NUR ---
0600-pt requested to get up & use the restroom, pt stood up on the side of the bed with pct Chadsholaceleste, according to pt & pct; this pt's knee being numb & would not withstand pt's weight, pt states his knee right "buckled" Talayna kept pt upright, preventing him from falling. pt sat back on the side of the bed. this rn entered the room & was informed of this event. this rn informed pt & pct that therapy has not worked with therapy & should not be up. pt verbalized understanding. pt stated, "I was just trying to get a jump start to this day." pt has a skin tear on his left FA 0.5x0.5-steri strip applied, covered with a Telfa, gauze, & Medipore tape.
[2019-09-10] MEDS: PARoxetine 20 MG (PAXIL) TAB PO SCH (08:59)
[2019-09-10] MEDS: ASPIRIN 81 MG CHEW (CHILDREN'S ASA) PO SCH (08:59)
[2019-09-10] MEDS: CLINDAMYCIN 900 MG/50 ML IVPB 50 ML IV SCH (08:59)
--- NOTE | 2019-09-10 09:58 | Physical Therapy Evaluation ---
PT Evaluation-General Medical Diagnosis Admission Date Sep 09, 2019 at 06:00 Medical Diagnosis: right TKA Onset Date: Sep 09, 2019 Therapy Diagnosis Therapy Diagnosis: impaired mobility, strength, endurance, ROM Height/Weight Height (Feet): 5 Height (Inches): 11 Weight (Pounds): 185 Precautions Precautions/Isolations: Fall Prevention Weight Bear Status Right Lower Extremity: Right Full Weight Bearing Left Lower Extremity: Left Full Weight Bearing Referral Physician: Carlo Reason for Referral: Evaluation/Treatment Medical History Reviewed History: Yes Social History Home: Single Level Current Living Status: Spouse Entry Into Home: Stairs With Railing PT Steps Into Home: 3 Prior Prior Level of Function SCALE: Activities may be completed with or without assistive devices. 4-Ollkldgzob-ikpremw completes the activity by him/herself with no assistance from a helper. 5-Set-up or Clean-up Assistance-helper sets up or cleans up; patient completes activity. [place] assists only prior to or following the activity. 4-Supervision or Touching Assistance-helper provides verbal cues and/or touching/steadying and/or contact guard assistance as patient completes activity. Assistance may be provided throughout the activity or intermittently. 3-Partial/Moderate Assistance-helper does LESS THAN HALF the effort. [place] lifts, holds or supports trunk or limbs, but provides less than half the effort. 2-Substantial/Maximal Assistance-helper does MORE THAN HALF the effort. [place] lifts or holds trunk or limbs and provides more than half the effort. 0-Ebensncgj-bnsjwt does ALL the effort. Patient does none of the effort to complete the activity. Or, the assistance of 2 or more helpers is required for the patient to complete the activity. If activity was not attempted, code reason: 7-Patient Refused. 9-Not Applicable-not attempted and the patient did not perform the activity before the current illness, exacerbation or injury. 10-Not Attempted due to Environmental Limitations-(lack of equipment, weather restraints, etc.). 88-Not Attempted due to Medical Conditions or Safety Concerns. Bed Mobility: 6 Transfers (B,C,W/C): 6 Gait: 6 Stairs: 6 Indoor Mobility (Ambulation): Independent Stairs: Independent PT Evaluation-Current Subjective Patient in bed pre tx, agrees to PT, has 3/10 pain in right knee Pt/Family Goals to be independent at home Objective Patient Orientation: Person, Place, Situation Attachments: IV ROM/Strength ROM Lower Extremities right knee flexion 90 degrees, extension +5 degrees Sensory Vision: Functional Hearing: Functional Sensation Right Lower Extremit: Intact Sensation Left Lower Extremity: Intact Transfers Roll Left to Right (QC): 6 Sit to Lying (QC): 6 Lying to Sitting/Side of Bed(Q: 6 Sit to Stand (QC): 4 Chair/Iqm-oz-Fujeb Xfer(QC): 4 CGA for sit <-> stand and transfers, nerve block has worn off and he can bear weight appropriately Gait Does the Patient Walk?: Yes Mode of Locomotion: Walk Anticipated Mode of Locomotion: Walk Walk 10 feet (QC): 4 Walk 50 ft with 2 Turns(QC): 4 Distance: 120' Gait Assistive Device: FWW Comments/Gait Description Slow but steady ambulation, good step through and heel strike Balance Sitting Static: Normal Sitting Dynamic: Normal Standing Static: Good Standing Dynamic: Good Treatment RLE total knee protocol x10 (AP, QS, HS, SAQ, SLR), CPM applied and fit to patient's leg and set to -2/70, patient in bed post tx with nurse call, phone, tray, all needs met. Assessment/Needs Patient can bear weight appropriately on right leg, good ambulation Rehab Potential: Fair PT Care Home Goals Care Home Goals PT Interior Surface Insulation Worker Goals Time Frame: Sep 17, 2019 Roll Left & Right (QC): 6 Sit to Lying (QC): 6 Lying-Sitting on Side/Bed(QC): 6 Sit to Stand (QC): 6 Chair/Seo-bo-Xgaxf Xfer(QC): 6 Walk 10 feet (QC): 5 Walk 50ft with 2 Turns (QC): 5 Walk 150 ft (QC): 5 1 Step (curb) (QC): 4 4 Steps (QC): 4 PT Plan Problem List Problem List: Activity Tolerance, Functional Strength, Safety, Balance, Gait, Transfer, ROM Treatment/Plan Treatment Plan: Continue Plan of Care Treatment Plan: Education, Functional Activity Renae, Functional Strength, Gait, Safety, Therapeutic Exercise, Transfers Treatment Duration: Sep 17, 2019 Frequency: 11 times per week Estimated Hrs Per Day: .25 hour per day Patient and/or Family Agrees t: Yes Safety Risks/Education Patient Education: Gait Training, Transfer Techniques, Correct Positioning, Safety Issues Teaching Recipient: Patient Teaching Methods: Demonstration, Discussion Response to Teaching: Reinforcement Needed Discharge Recommendations Plan Patient will perform bed mobility and transfer training, balance and endurance training, functional strengthening, stair training, gait training, and education, to improve functional mobility and independence at home. Therapy Discharge Recommendati: Home & Family Time/GCodes Time In: 43 Time Out: 905 Total Billed Treatment Time: 23 Total Billed Treatment 1 visit EVL 15' FA 8' MICKY RANDALL PT Sep 10, 2019 09:58
[2019-09-10 12:00] VITALS: BP 120/68
[2019-09-10] MEDS ORDERED: SIMETHICONE 80 MG (MYLICON) CHEW PO PRN (12:15)
--- NOTE | 2019-09-10 12:49 | Anesthesia-General Post-Op ---
General Patient Condition Mental Status/LOC: Same as Preop Cardiovascular: Satisfactory Nausea/Vomiting: Absent Respiratory: Satisfactory Pain: Controlled Complications: Absent Post Op Complications Complications None Follow Up Care/Instructions Patient Instructions None needed. Anesthesia/Patient Condition Patient Condition Patient is doing well, no complaints, stable vital signs, no apparent adverse anesthesia problems. No complications reported per nursing. GUICHO MOSCOSO CRNA Sep 10, 2019 12:49
--- NOTE | 2019-09-10 12:53 | Occupational Therapy Eval ---
OT Evaluation-General/PLF Medical Diagnosis Admission Date Sep 09, 2019 at 06:00 Medical Diagnosis: right TKA Onset Date: Sep 09, 2019 Therapy Diagnosis Therapy Diagnosis: decreased self care skills Height/Weight Height (Feet): 5 Height (Inches): 11 Weight (Pounds): 185 Precautions Precautions/Isolations: Fall Prevention Safety Interventions: Reorient-PRN Referral Physician: Carlo Medical History Current History pt s/p elective right TKA Reviewed History: Yes Social History Home: Single Level Current Living Status: Spouse Entry Into Home: Stairs With Railing Steps Into Home: 3 ADL-Prior Level of Function SCALE: Activities may be completed with or without assistive devices. 7-Fqevbjlmqo-ihqmqwm completes the activity by him/herself with no assistance from a helper. 5-Set-up or Clean-up Assistance-helper sets up or cleans up; patient completes activity. [place] assists only prior to or following the activity. 4-Supervision or Touching Assistance-helper provides verbal cues and/or touching/steadying and/or contact guard assistance as patient completes activity. Assistance may be provided throughout the activity or intermittently. 3-Partial/Moderate Assistance-helper does LESS THAN HALF the effort. [place] lifts, holds or supports trunk or limbs, but provides less than half the effort. 2-Substantial/Maximal Assistance-helper does MORE THAN HALF the effort. [place] lifts or holds trunk or limbs and provides more than half the effort. 1-Pvonahqls-uiubpi does ALL the effort. Patient does none of the effort to complete the activity. Or, the assistance of 2 or more helpers is required for the patient to complete the activity. If activity was not attempted, code reason: 7-Patient Refused. 9-Not Applicable-not attempted and the patient did not perform the activity before the current illness, exacerbation or injury. 10-Not Attempted due to Environmental Limitations-(lack of equipment, weather restraints, etc.). 88-Not Attempted due to Medical Conditions or Safety Concerns. ADL PLOF Comments Pt reports being independent prior to admission. Self Care: Independent Functional Cognition: Independent DME/Equipment: Bath Chair, Grab Bars, Shower OT Current Status Subjective Pt resting in bed, agrees to therapy. Pt reports "ache" in right knee, but does not rate. Mental Status/Objective Patient Orientation: Person, Place, Situation Attachments: IV Current Glasses/Contacts: Yes Upper Extremity ROM Grossly functional Upper Extremity Coordination Intact ADL-Treatment ADL-Current Pt in bed with CPM on. Pt declined ADLs or to complete OOB activity at this time, states he might get dressed later this afternoon. Education provided regarding role of OT, plan of care, and home safety. Pt states understanding of education, states his spouse will be able to assist him as needed. Will attempt to assess ADLs tomorrow. Pt in bed with needs met after session. Eating (QC): 6 (per pt report) Education OT Patient Education: Rehab process Teaching Recipient: Patient Teaching Methods: Discussion Response to Teaching: Verbalize Understanding OT Usp Goals Dental Equipment Repairer Goals Time Frame: Sep 17, 2019 Oral Hygiene (QC): 6 Toileting Hygiene (QC): 6 Shower/Bathe Self (QC): 5 Upper Body Dressing (QC): 6 Lower Body Dressing (QC): 5 Additional Goals: 1-Demonstrate ADL Tasks, 2-Verbalize Understanding, 3- ImproveStrength/Renae 1=Demonstrate adherence to instructed precautions during ADL tasks. 2=Patient will verbalize/demonstrate understanding of assistive devices/modifications for ADL. 3=Patient will improve strength/tolerance for activity to enable patient to perform ADL's. OT Education/Plan Problem List/Assessment Pt s/p elective right TKA. Pt to benefit from skilled OT while hospitalized for ADL training, transfers, and home safety education to increase independence and allow safe discharge home. Discharge Recommendations Plan/Recommendations: Continue POC Treatment Plan/Plan of Care Treatment,Training & Education: Yes Patient would benefit from OT for education, treatment and training to promote independence in ADL's, mobility, safety and/or upper extremity function for ADL's. Plan of Care: ADL Retraining, Functional Mobility Treatment Duration: Sep 17, 2019 Frequency: 5 times per week Estimated Hrs Per Day: .25 hour per day Rehab Potential: Good Time/GCodes Start Time: 10:56 Stop Time: 11:07 Total Time Billed (hr/min): 11 Billed Treatment Time 1 visit, JAVIER(11minutes) BETHANIE CASTAÑEDA OT Sep 10, 2019 12:53
[2019-09-10] MEDS: ENOXAPARIN 40 MG/0.4 ML (LOVENOX) SYR SC SCH (13:20)
[2019-09-10] MEDS ORDERED: LORA10TA7 PO (13:57)
[2019-09-10] MEDS ORDERED: ACET-93 PO (13:57)
--- NOTE | 2019-09-10 14:08 | Progress Note ---
Subjective Date Seen by a Provider: Sep 10, 2019 Time Seen by a Provider: 12:00 Subjective/Events-last exam POD 1 s/p right TKA. Doing well overall, pain controlled. No complaints. Objective Exam Vital Signs Date Time Temp Pulse Resp B/P (MAP) Pulse Ox O2 Delivery O2 Flow Rate FiO2 09/10/19 12:00 36.6 73 18 120/68 (85) 97 Room Air 09/10/19 08:00 96 Room Air 09/10/19 07:00 37.0 09/10/19 03:39 36.2 65 18 108/69 (82) 96 Room Air 09/09/19 23:51 36.4 85 18 121/62 (81) 95 Room Air 09/09/19 21:32 76 100/58 (72) 09/09/19 20:00 36.8 85 18 119/68 (85) 95 Room Air 09/09/19 19:30 Room Air 09/09/19 16:00 36.2 79 18 131/77 (95) 96 Room Air I & O 09/10/19 07:00 Intake Total 4790 ml Output Total 1775 ml Balance 3015 ml Capillary Refill : Less Than 3 SecondsLess Than 3 Seconds General Appearance: No Apparent Distress Cardiovascular: Regular Rate, Rhythm Extremity: Normal Capillary Refill, Normal Inspection, No Calf Tenderness, No Pedal Edema Neurologic/Psychiatric: Alert, Oriented x3, No Motor/Sensory Deficits, Normal Mood/Affect Skin: Normal Color, Warm/Dry (dressing right knee CDI) Results Lab Laboratory Tests 09/10/19 05:10: White Blood Count 13.6H, Red Blood Count 3.42L, Hemoglobin 10.6L, Hematocrit 33L , Mean Corpuscular Volume 96, Mean Corpuscular Hemoglobin 31, Mean Corpuscular Hemoglobin Concent 32, Red Cell Distribution Width 13.1, Platelet Count 213, Mean Platelet Volume 10.8H, Sodium Level 135, Potassium Level 4.3, Chloride Level 107, Carbon Dioxide Level 17L, Anion Gap 11, Blood Urea Nitrogen 23H, Creatinine 1.38H, Estimat Glomerular Filtration Rate 51, BUN/Creatinine Ratio 17, Glucose Level 191H, Calcium Level 7.6L Assessment/Plan Assessment/Plan Assess & Plan/Chief Complaint A: s/p right TKA P: DC toradol and ibuprofen today, continue current treatment, plan to discharge tomorrow to home with home healthcare Clinical Quality Measures DVT/VTE Risk/Contraindication: Risk Factor Score Per Nursin RFS Level Per Nursing on Admit: 4+=Very High SCOOTER PHILIPPE HOSTLER HELPER Sep 10, 2019 14:08
[2019-09-10] MEDS ORDERED: [UNRECOGNIZED DRUG - OTHER] PO PRN (14:15)
--- NOTE | 2019-09-10 14:50 | Physical Therapy Daily Note ---
PT Daily Note-Current Subjective Patient agreeable to therapy. Patient reports no pain at this time. Appearance Patient on toilet and requested to be left alone and he will call nursing to help him to recliner when he is finished. Mental Status Patient Orientation: Person, Place, Time, Situation Attachments: IV Transfers SCALE: Activities may be completed with or without assistive devices. 8-Xzlifnvszx-wemromy completes the activity by him/herself with no assistance from a helper. 5-Set-up or Clean-up Assistance-helper sets up or cleans up; patient completes activity. [place] assists only prior to or following the activity. 4-Supervision or Touching Assistance-helper provides verbal cues and/or touching/steadying and/or contact guard assistance as patient completes activity. Assistance may be provided throughout the activity or intermittently. 3-Partial/Moderate Assistance-helper does LESS THAN HALF the effort. [place] lifts, holds or supports trunk or limbs, but provides less than half the effort. 2-Substantial/Maximal Assistance-helper does MORE THAN HALF the effort. [place] lifts or holds trunk or limbs and provides more than half the effort. 6-Xevoqgbaz-xstjwn does ALL the effort. Patient does none of the effort to complete the activity. Or, the assistance of 2 or more helpers is required for the patient to complete the activity. If activity was not attempted, code reason: 7-Patient Refused. 9-Not Applicable-not attempted and the patient did not perform the activity before the current illness, exacerbation or injury. 10-Not Attempted due to Environmental Limitations-(lack of equipment, weather restraints, etc.). 88-Not Attempted due to Medical Conditions or Safety Concerns. Roll Left & Right (QC): 6 Lying to Sitting/Side of Bed(Q: 6 Sit to Stand (QC): 6 Chair/Gox-lx-Mngqo Xfer(QC): 6 Toilet Transfer (QC): 6 Weight Bearing Right Lower Extremity: Right Weight Bearing/Tolerated Left Lower Extremity: Left Full Weight Bearing Gait Training Does the Patient Walk?: Yes Distance: 600' Walk 10 feet (QC): 4 Walk 50 ft with 2 Turns(QC): 4 Walk 150 ft (QC): 4 Gait Persons Needed: 1 Gait Assistive Device: FWW Patient stable during ambulation and has a very smooth gait pattern. SBA for safety. Exercises Supine Ex: Ankle pumps, Quad Set, Glut sets, Heel Slides, Short Arc Quads, Straight leg raise Supine Reps: 15 right leg only Treatments Ambulation, transfers, RLE exercises. Assessment Current Status: Good Progress Patient is stable during ambulation and has a smooth gait pattern with no LOB during ambulation. PT Program Professional Goals [facility] Goals PT [facility] Goals Time Frame: Sep 17, 2019 Roll Left & Right (QC): 6 Sit to Lying (QC): 6 Lying-Sitting on Side/Bed(QC): 6 Sit to Stand (QC): 6 Chair/Iwv-dk-Khjaw Xfer(QC): 6 Walk 10 feet (QC): 5 Walk 50ft with 2 Turns (QC): 5 Walk 150 ft (QC): 5 1 Step (curb) (QC): 4 4 Steps (QC): 4 PT Plan Problem List Problem List: Activity Tolerance, Functional Strength, Safety, Gait, Transfer, ROM Treatment/Plan Treatment Plan: Continue Plan of Care Treatment Plan: Education, Functional Activity Renae, Functional Strength, Gait, Safety, Therapeutic Exercise, Transfers Treatment Duration: Sep 17, 2019 Frequency: 11 times per week Estimated Hrs Per Day: .25 hour per day Patient and/or Family Agrees t: Yes Safety Risks/Education Patient Education: Gait Training, Transfer Techniques, Safety Issues Teaching Recipient: Patient Teaching Methods: Discussion Response to Teaching: Reinforcement Needed Time/GCodes Time In: 1425 Time Out: 1443 Total Billed Treatment Time: 18 Total Billed Treatment 1 visit FA (18 minutes) MICKY RANDALL PT Sep 10, 2019 14:50
[2019-09-10 16:14] VITALS: BP 124/66
--- NOTE | 2019-09-10 16:19 | NUR ---
CM/SS: Visited with pt as to plan for discharge as per consult. Plan: Pt will return home with [facility] when determined Summary: Pt plans to return home with [facility] selected. The Medicare Star ratings provided and pt has selected [facility] for services. Pt has a and does not need any medical equipment at this time. Referral sent to [facility]
[2019-09-10] MEDS: SIMETHICONE 80 MG (MYLICON) CHEW PO PRN (17:54)
[2019-09-10 20:00] VITALS: BP 102/56
[2019-09-10 21:02] VITALS: BP 100/56
[2019-09-10] MEDS: SENNA W/DOCUSATE (SENOKOT S) TABLET PO SCH (21:06)
[2019-09-11 00:03] VITALS: BP 119/71
[2019-09-11 04:00] VITALS: BP 137/76
[2019-09-11] MEDS: GABAPENTIN 100 MG (NEURONTIN) CAP PO SCH (05:49)
[2019-09-11] MEDS: ACETAMINOPHEN 500 MG TAB (TYLENOL) PO SCH (05:49)
[2019-09-11 06:21] LABS: HEMOGLOBIN 11.2 G/DL (13.3-17.7); MEAN PLATELET VOLUME 11.2 FL (7.4-10.4); RED CELL DISTRIBUTION WIDTH 13.9 % (10.0-14.5); WHITE BLOOD COUNT 12.9 10^3/uL (4.3-11.0)
[2019-09-11] MEDS ORDERED: LEVOTHYROXINE 50 MCG (LEVOTHROID) TAB PO SCH (06:30)
[2019-09-11 06:44] LABS: CALCIUM 8.1 MG/DL (8.5-10.1); CREATININE SERUM 1.31 MG/DL (0.60-1.30); POTASSIUM 4.8 MMOL/L (3.6-5.0)
--- NOTE | 2019-09-11 06:51 | Progress Note ---
Subjective Date Seen by a Provider: Sep 11, 2019 Time Seen by a Provider: 06:49 Subjective/Events-last exam POD 2 s/p right TKA. No complaints, doing well at this time. Feels ready for discharge today Objective Exam Vital Signs Date Time Temp Pulse Resp B/P (MAP) Pulse Ox O2 Delivery O2 Flow Rate FiO2 09/11/19 04:00 36.6 79 20 137/76 (96) 96 Room Air 09/11/19 00:03 36.6 70 20 119/71 (87) 97 Room Air 09/10/19 21:02 60 100/56 (71) 09/10/19 20:00 36.6 87 20 102/56 (71) 97 Room Air 09/10/19 19:20 Room Air 09/10/19 16:14 36.6 79 20 124/66 (85) 97 Room Air 09/10/19 12:00 36.6 73 18 120/68 (85) 97 Room Air 09/10/19 08:00 96 Room Air 09/10/19 07:00 37.0 I & O 09/11/19 07:00 Intake Total 2460 ml Output Total 1100 ml Balance 1360 ml Capillary Refill : Less Than 3 SecondsLess Than 3 Seconds General Appearance: No Apparent Distress Respiratory: Normal Breath Sounds, No Accessory Muscle Use, No Respiratory Distress Cardiovascular: Regular Rate, Rhythm, Normal Peripheral Pulses Gastrointestinal: non tender, soft Extremity: Normal Capillary Refill, Normal Inspection, Non Tender, No Calf Tenderness Neurologic/Psychiatric: Alert, Oriented x3, No Motor/Sensory Deficits Skin: Normal Color, Warm/Dry (dressing right knee CDI) Results Lab Laboratory Tests 09/11/19 05:37: White Blood Count 12.9H, Red Blood Count 3.61L, Hemoglobin 11.2L, Hematocrit 35L , Mean Corpuscular Volume 96, Mean Corpuscular Hemoglobin 31, Mean Corpuscular Hemoglobin Concent 32, Red Cell Distribution Width 13.9, Platelet Count 212, Mean Platelet Volume 11.2H, Sodium Level 141, Potassium Level 4.8, Carbon Dioxide Level 20L, Anion Gap 10, Blood Urea Nitrogen 20H, Creatinine 1.31H, Estimat Glomerular Filtration Rate 54, BUN/Creatinine Ratio 15, Glucose Level 87, Calcium Level 8.1L Assessment/Plan Assessment/Plan Assess & Plan/Chief Complaint A: s/p right TKA P: discharge tomorrow to home with home healthcare today Clinical Quality Measures DVT/VTE Risk/Contraindication: Risk Factor Score Per Nursin RFS Level Per Nursing on Admit: 4+=Very High SCOOTER PHILIPPE CALENDERER Sep 11, 2019 06:50
[2019-09-11] MEDS ORDERED: SENN-20 PO (06:55)
[2019-09-11] MEDS ORDERED: OXYC1TAB12 PO (06:57)
--- NOTE | 2019-09-11 06:59 | D/C HH Face to Face Order ---
D/C Face to Face Orders Reconcile Patient Problems Problems Reviewed?: Yes Instructions for Patient [facility], Patient Instructions/FollowUp: f/u 2 weeks in [place] office Physician to follow Patient: Dr. Santos Discharge Diet for Home: No Restrictions Patient Problems: s/p right TKA Goals for Patient: ADLs independently Patient Data-Allergies,Ht & Wt Patient Allergies: Coded Allergies: Penicillins (Verified Allergy, Mild, HIVES, 08/27/19) Height (Feet): 5 Height (Inches): 11 Weight (Pounds): 185 Home Health Need/Face to Face Date of Face to Face: Sep 11, 2019 Clinical Findings: Muscle weakness, Pain with ambulation, Unsteady gait I have seen Pt pntr-[id number]: Yes Discharged To: Home Diagnosis/Conditions: s/p right TKA Primary OA right knee Problems/Diagnosis/Condition: (1) Primary osteoarthritis of right knee Patient is Homebound due to: Marlon fall risk due to instabilty, Pain w/ambulation Homebound Status Due to the above stated illness, injury or surgical procedure (medical condition or diagnosis) and associated clinical findings, the patient is homebound because of his/her inability to leave home except with aid of a supportive device and/or person AND leaving the home requires a considerable and taxing effort or is medically contraindicated. Pt req the following assistanc: Cane, Walker Home Health Nursing Orders Home Health Services Order: Physical Therapy-Evaluate & Treat remove ben and apply steri strips on 09/18/18 daily island dressing changes physical therapy 5x/week x [address] Santos's TKA DC instructions for further instructions Home Health Infusion Therapy Line Start Date: Sep 09, 2019 Therapy Orders Therapy Orders: Physical Therapy Therapy Specific Orders: Eval assistive deivces, Gait training, Increase strength/endurance, Restore ROM Certify Stmt I certify that this patient is under my care and that I, a nurse practitioner or a physician; a personal care assistant working with me, had a face to face encounter that - meets the physician face to face encounter requirements with this patient as dated. SCOOTER PHILIPPE APRN Sep 11, 2019 06:59
[2019-09-11 08:00] VITALS: BP 100/68
[2019-09-11] MEDS: PARoxetine 20 MG (PAXIL) TAB PO SCH (09:08)
[2019-09-11] MEDS: ASPIRIN 81 MG CHEW (CHILDREN'S ASA) PO SCH (09:09)
[2019-09-11] MEDS: SIMETHICONE 80 MG (MYLICON) CHEW PO PRN (09:10)
--- NOTE | 2019-09-11 09:53 | Physical Therapy Daily Note ---
PT Daily Note-Current Subjective Patient agreeable to therapy at this time. Pain Numeric Pain Scale: 10-Worst Possible Pain Location: Right Location Body Site: Knee Appearance Patient in recliner with bedside table and call light within reach. Mental Status Patient Orientation: Person, Place, Time, Situation Transfers SCALE: Activities may be completed with or without assistive devices. 7-Fxgdbjflqs-hnbtzot completes the activity by him/herself with no assistance from a helper. 5-Set-up or Clean-up Assistance-helper sets up or cleans up; patient completes activity. [place] assists only prior to or following the activity. 4-Supervision or Touching Assistance-helper provides verbal cues and/or touching/steadying and/or contact guard assistance as patient completes activity. Assistance may be provided throughout the activity or intermittently. 3-Partial/Moderate Assistance-helper does LESS THAN HALF the effort. [place] lifts, holds or supports trunk or limbs, but provides less than half the effort. 2-Substantial/Maximal Assistance-helper does MORE THAN HALF the effort. [place] lifts or holds trunk or limbs and provides more than half the effort. 1-Gsfgzgwph-jyebvz does ALL the effort. Patient does none of the effort to complete the activity. Or, the assistance of 2 or more helpers is required for the patient to complete the activity. If activity was not attempted, code reason: 7-Patient Refused. 9-Not Applicable-not attempted and the patient did not perform the activity before the current illness, exacerbation or injury. 10-Not Attempted due to Environmental Limitations-(lack of equipment, weather restraints, etc.). 88-Not Attempted due to Medical Conditions or Safety Concerns. Roll Left & Right (QC): 6 Sit to Lying (QC): 6 Lying to Sitting/Side of Bed(Q: 6 Sit to Stand (QC): 6 Chair/Sjk-px-Bosdd Xfer(QC): 6 Weight Bearing Right Lower Extremity: Right Weight Bearing/Tolerated Left Lower Extremity: Left Full Weight Bearing Gait Training Does the Patient Walk?: Yes Distance: 600' Walk 10 feet (QC): 6 Walk 50 ft with 2 Turns(QC): 6 Walk 150 ft (QC): 6 Gait Persons Needed: 1 Gait Assistive Device: FWW Patient was steady during ambulation with a smooth gait pattern. Patient knee appeared stiffer at the beginning of ambulation but loosened up with ambulation. Wheelchair Training Does the Pt Use a Wheelchair?: No Exercises Supine Ex: Ankle pumps, Quad Set, Glut sets, Heel Slides, Short Arc Quads, Straight leg raise Supine Reps: 15 Seated Therapy Exercises: Long arc quads, Hip flexion Seated Reps: 15 RLE only Treatments Ambulation, transfers, exercise. Assessment Current Status: Excellent Progress Patient is stable during ambulation and moving around IND within room. Patient reports doing his exercises IND throughout the day. 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 Cleaning Operator Goals PT [facility] Goals Time Frame: Sep 17, 2019 Roll Left & Right (QC): 6 Sit to Lying (QC): 6 Lying-Sitting on Side/Bed(QC): 6 Sit to Stand (QC): 6 Chair/Ibg-su-Fzlsg Xfer(QC): 6 Walk 10 feet (QC): 5 Walk 50ft with 2 Turns (QC): 5 Walk 150 ft (QC): 5 1 Step (curb) (QC): 4 4 Steps (QC): 4 PT Plan Problem List Problem List: Activity Tolerance, Functional Strength, Balance, Gait, Transfer, ROM Treatment/Plan Treatment Plan: Continue Plan of Care Treatment Plan: Education, Functional Activity Renae, Functional Strength, Gait, Safety, Therapeutic Exercise, Transfers Treatment Duration: Sep 17, 2019 Frequency: 11 times per week Estimated Hrs Per Day: .25 hour per day Patient and/or Family Agrees t: Yes Safety Risks/Education Patient Education: Gait Training, Transfer Techniques Teaching Recipient: Patient Teaching Methods: Discussion Response to Teaching: Reinforcement Needed Discharge Recommendations Therapy Discharge Recommendati: Home & Family Time/GCodes Time In: 815 Time Out: 838 Total Billed Treatment Time: 23 Total Billed Treatment 1 visit EX (15 minutes) FA (8 minutes) ANGELI VALENTE PT Sep 11, 2019 09:53
--- NOTE | 2019-09-11 11:46 | Occ Therapy Progress Note ---
Therapy Progress Note Pt seen at 1125. Pt denies need for OT tx session as he states he will be able to complete self care tasks at home and has to assist if needed. Pt left in bed with call light in reach, all needs met. Pt plans to d/c on this date. D/c OT services. VIDA WOOD OTR Sep 11, 2019 11:46
[2019-09-11 12:00] VITALS: BP 154/83
--- NOTE | 2019-09-11 15:54 | NUR ---
CM/SS: Pt will discharged home today with [facility] Summary: Home Care Referral made to [facility]. Process explained to pt. He verbalizes understanding. Spouse is present to spanish moss picker pt. Discharge summary faxed to [facility].
[2019-09-14] MEDS ORDERED: IBUPROFEN 800 MG (MOTRIN) TAB PO SCH (12:00)
== END 2019-09-11 15:30 | disposition home health service (06) | DRG 470 ==
LOC: 4TH 06:00 → SURG 06:01 → 4TH 11:15
PROVIDERS: ADMIT Orthopaedic Surgery; ATTEND Orthopaedic Surgery
PROC: 0SRC0J9 Replacement of Right Knee Joint with Synthetic Substitute, Cemented, Open Approach (ICD-10-PCS; principal; 2019-09-09 08:06)
DX: M17.11 Unilateral primary osteoarthritis, right knee (principal); E78.5 Hyperlipidemia, unspecified; I25.2 Old myocardial infarction; K21.9 Gastro-esophageal reflux disease without esophagitis; E07.9 Disorder of thyroid, unspecified; I10 Essential (primary) hypertension; F32.9 Major depressive disorder, single episode, unspecified; Z90.5 Acquired absence of kidney; Z90.81 Acquired absence of spleen; Z87.891 Personal history of nicotine dependence; Z95.818 Presence of other cardiac implants and grafts
CPT/HCPCS: 36415; 73560; 80048; 85027; 86850; 86900; 86901; 94664

== ENCOUNTER 2019-11-10 13:37 | Outpatient (RCR) | payer MEDICARE, OTHER ==
[~2019-11-10 13:37] MED LIST changes: +ACET-93 PO; +LORA10TA7 PO; +OXYC1TAB12 PO; +SENN-20 PO
== END 2019-12-28 | disposition home or self-care (01) ==
PROVIDERS: ATTEND Orthopaedic Surgery
DX: Z47.1 Aftercare following joint replacement surgery (principal); Z96.651 Presence of right artificial knee joint; Z90.5 Acquired absence of kidney

== ENCOUNTER 2020-03-16 04:26 | Emergency (ER) | payer MEDICARE, OTHER ==
[~2020-03-16] VITALS: Ht 180.4 cm; Wt 79.3 kg
[2020-03-16] MEDS ORDERED: NITR0.4T42 SL (04:47)
[2020-03-16 05:07] LABS: BASOPHILS # (AUTO) 0.1 10^3/uL (0.0-0.1); BASOPHILS % (AUTO) 0 % (0-10); EOSINOPHILS # (AUTO) 0.3 10^3/uL (0.0-0.3); EOSINOPHILS % (AUTO) 2 % (0-10); HEMATOCRIT 41 % (40-54); HEMOGLOBIN 13.4 G/DL (13.3-17.7); LYMPHOCYTES # (AUTO) 2.5 X 10^3 (1.0-4.0); LYMPHOCYTES % (AUTO) 19 % (12-44); MEAN CORPUSCULAR HEMOGLOBIN 31 PG (25-34); MEAN CORPUSCULAR HGB CONC 33 G/DL (32-36); MEAN CORPUSCULAR VOLUME 95 FL (80-99); MEAN PLATELET VOLUME 10.3 FL (7.4-10.4); MONOCYTES # (AUTO) 1.4 X 10^3 (0.0-1.0); MONOCYTES % (AUTO) 10 % (0-12); NEUTROPHILS # (AUTO) 9.1 X 10^3 (1.8-7.8); NEUTROPHILS % (AUTO) 69 % (42-75); PLATELET COUNT 254 10^3/uL (130-400); RED CELL DISTRIBUTION WIDTH 13.9 % (10.0-14.5); WHITE BLOOD COUNT 13.2 10^3/uL (4.3-11.0)
--- NOTE | 2020-03-16 05:23 | ED Abdominal Pain ---
General Chief Complaint: Abdominal/GI Problems Stated Complaint: STOMACH CRAMPS Source of Information: Patient History of Present Illness Date Seen by Provider: Mar 16, 2020 Time Seen by Provider: 04:43 Initial Comments PT ARRIVES VIA POV FROM HOME C/O ABDOMINAL CRAMPING SINCE LAST Sunday03/11/20 PAIN IS IN CENTER OF ABDOMEN FROM EPIGASTRIC AREA DOWN TO PUBIC AREA--PAIN COMES AND GOES, AND CURRENTLY HAS A LITTLE BIT OF PAIN IN SUPRAPUBIC AREA NOTHING WORSENS PAIN, BUT IS IMPROVED BY DRINKING HOT COFFEE OR LAYING ON HIS BACK STATES HE HAD SOME VILLAGRAN[employer]S POT ROAST SOUP ON SUNDAY AND AFTER HE ATE IT, HE HAD "SEVERE GAS" AND THEN BEGAN HAVING THE CRAMPING HAD DIARRHEA ON SUNDAY, SUNDAY AND A LITTLE ON SUNDAY. BM'S HAVE BEEN NORMAL SINCE. LAST BM WAS 0130 THIS AM. NO BLACK/BLOODY/TARRY STOOLS NO NAUSEA/VOMITING HAS SLIGHT BURNING ON URINATION HAS HISTORY OF GAS AND BLOATING AND TAKES GAS X AND BEANO 2-3 TIMES A DAY HAS NOT TAKEN ANYTHING FOR SYMPTOMS TONIGHT SYMPTOMS NO DIFFERENT TONIGHT HAS NOT SOUGHT CARE UNTIL NOW NO COUGH OR URI SYMPTOMS NO CHEST PAIN OR SHORTNESS OF BREATH NO SORE THROAT NO LOSS OF TASTE OR SMELL NO KNOWN SICK CONTACTS OR EXPOSURE TO COVID-19. HAS HAD HIATAL HERNIA REPAIR HAS HAD ABDOMINAL ANEURYSM STENT SEVERAL YEARS AGO ALSO HAS A CURRENT VENTRAL HERNIA PCP: DR. GARCIA Allergies and Home Medications Allergies Coded Allergies: Penicillins (Verified Allergy, Mild, HIVES, 08/27/19) Home Medications Acetaminophen 500 Mg Tablet, 1,000 MG PO BID, (Reported) Dpeyo-Z-Dwunrjegfepoh 150 Unit Tablet, 1 TAB PO TID PRN for BLOATING, (Reported) Aspirin 81 Mg Tab.chew, 81 MG PO DAILY, (Reported) Ciprofloxacin HCl 500 Mg Tablet, 500 MG PO BID Prescribed by: JESSICA WETZEL on 03/16/20718 Dicyclomine HCl 20 Mg Tablet, 20 MG PO Q6H Prescribed by: JESSICA WETZEL on 03/16/20718 Hydrocodone/Acetaminophen 1 Each Tablet, 1 EACH PO Q4-6 HOURS PRN for PAIN Prescribed by: JESSICA WETZEL on 03/16/20718 L. Acidophilus/Pectin, Grayson 1 Each Capsule, 2 EACH PO QID Prescribed by: JESSICA WETZEL on 03/16/20718 Levothyroxine Sodium 50 Mcg Tablet, 50 MCG PO DAILY, (Reported) Metoprolol Succinate 25 Mg Tab.er.24h, 12.5 MG PO BID, (Reported) TAKES 1/2 (25MG) TABLET Metronidazole 500 Mg Tablet, 500 MG PO QID Prescribed by: JESSICA WETZEL on 03/16/20718 Paroxetine HCl 20 Mg Tablet, 20 MG PO DAILY, (Reported) Simethicone 125 Mg Tab.chew, 125 MG PO TID PRN for GAS, (Reported) Simvastatin 40 Mg Tablet, 40 MG PO HS, (Reported) Patient Home Medication List Home Medication List Reviewed: Yes Review of Systems Review of Systems Constitutional: no symptoms reported; No chills, No diaphoresis, No dizziness, No fever EENTM: No Symptoms Reported Respiratory: No Symptoms Reported; Denies Cough, Denies Shortness of Air Cardiovascular: No Symptoms Reported; Denies Chest Pain, Denies Edema, Denies Lightheadedness Gastrointestinal: See HPI, Abdominal Pain, Diarrhea; Denies Nausea, Denies Poor Appetite, Denies Poor Fluid Intake, Denies Vomiting Genitourinary: See HPI, Burning Musculoskeletal: no symptoms reported; No back pain Skin: no symptoms reported Psychiatric/Neurological: No Symptoms Reported Endocrine: No Symptoms Reported Hematologic/Lymphatic: No Symptoms Reported Past Ghmxvan-Fsavaz-Dmgkfo Hx Past Med/Social Hx: Reviewed and Corrections made Patient Social History Former Smoker, Quit: Aug 27, 1999 Recent Foreign Travel: No Contact w/Someone Who Travel: No Recent Hopitalizations: No Immunizations Up To Date Tetanus Booster (TDap): Unknown Date of Pneumonia Vaccine: Aug 04, 2011 Date of Influenza Vaccine: May 26, 2019 Seasonal Allergies Seasonal Allergies: Yes Past Medical History Surgeries: Yes (ELBOW,LEFT NEPHRECTOMY & SPLEENECTOMY,LEFT HAND,SHOULDER,T&A) Abdominal, Adenoidectomy, Eye Surgery, Nephrectomy, Orthopedic, Tonsillectomy, Vascular Surgery Respiratory: No Currently Using CPAP: No Currently Using BIPAP: No Cardiac: Yes (STENT IN AORTA) Aneurysm, Coronary Artery Disease, Heart Attack, High Cholesterol, Hypertension Neurological: No Reproductive Disorders: No Sexually Transmitted Disease: No HIV/AIDS: No Genitourinary: Yes (LEFT NEPHRECTOMY FOR CANCER; RIGHT RENAL CYSTS) Gastrointestinal: Yes (HIATAL HERNIA REPAIR) Abdominal Hernia, Gastroesophageal Reflux, Diverticulosis, Hiatal Hernia Musculoskeletal: Yes (MULTIPLE ORTHO SURGERIES) Arthritis, Chronic Back Pain Endocrine: Yes Hypothyroidsim HEENT: Yes (GLASSES; RETINAL TEAR) Cataract Loss of Vision: Denies Hearing Impairment: Denies Cancer: Yes Kidney Did You Recieve Any Treatments: Yes (LEFT NEPHRECTOMY 2010--NO CHEMO OR RADIATION) What Type of Treatment Did You: Surgical Intervention Psychosocial: Yes Anxiety, Depression Integumentary: No Blood Disorders: No Adverse Reaction/Blood Tranf: No (N/A) Family Medical History No Pertinent Family Hx PSH: -1990--HAND SURGERY -1994--TENNIS ELBOW SURGERY -2004--LEFT NEPHRECTOMY AND SPLENECTOMY -2005--LEFT SHOULDER SURGERY -2008--CYNTHIA FUNDOPLICATION -2010--RIGHT SHOULDER SURGERY -2010--ABDOMINAL AORTIC ANEURYSM STENTS -2010--REPAIR OF RETINAL TEAR ---BILATERAL CATARACTS -2011--LEFT SHOULDER SURGERY -2013--RIGHT HAND CARPAL TUNNEL AND TRIGGER FINGER SURGERY -2013--RIGHT KNEE ARTHROSCOPY -2016--LEFT KNEE ARTHROSCOPY -2017--RIGHT CARPAL TUNNEL Physical Exam Vital Signs Vital Signs - First Documented 03/16/20 04:30 Temp 36.9 Pulse 97 Resp 18 B/P (MAP) 146/91 (109) Pulse Ox 99 O2 Delivery Room Air Capillary Refill : Height/Weight/BMI Height: 5'11" Weight: 185lbs. oz. 83.889419em; 25.95 BMI Method:Stated General Appearance: WD/WN, no apparent distress, other (WALKS UPRIGHT AND MOVES WITHOUT DIFFICULTY) Respiratory: normal breath sounds, no respiratory distress, no accessory muscle use Cardiovascular: regular rate, rhythm, no murmur Gastrointestinal: normal bowel sounds, soft, no organomegaly; No distended, No guarding, No rebound; tenderness (MILD SUPRAPUBIC TENDERNESS) Extremities: normal inspection Back: normal inspection, no CVA tenderness Neurologic/Psychiatric: media supervisor II-XII nml as tested, no motor/sensory deficits, alert, normal mood/affect, oriented x 3 Skin: normal color, warm/dry; No rash Progress/Results/Core Measures Results/Orders Lab Results Laboratory Tests Test 03/16/20 04:55 03/16/20 05:45 Range/Units White Blood Count 13.2 H 4.3-11.0 10^3/uL Red Blood Count 4.33 L 4.35-5.85 10^6/uL Hemoglobin 13.4 13.3-17.7 G/DL Hematocrit 41 40-54 % Mean Corpuscular Volume 95 80-99 FL Mean Corpuscular Hemoglobin 31 25-34 PG Mean Corpuscular Hemoglobin Concent 33 32-36 G/DL Red Cell Distribution Width 13.9 10.0-14.5 % Platelet Count 254 130-400 10^3/uL Mean Platelet Volume 10.3 7.4-10.4 FL Neutrophils (%) (Auto) 69 42-75 % Lymphocytes (%) (Auto) 19 12-44 % Monocytes (%) (Auto) 10 0-12 % Eosinophils (%) (Auto) 2 0-10 % Basophils (%) (Auto) 0 0-10 % Neutrophils # (Auto) 9.1 H 1.8-7.8 X 10^3 Lymphocytes # (Auto) 2.5 1.0-4.0 X 10^3 Monocytes # (Auto) 1.4 H 0.0-1.0 X 10^3 Eosinophils # (Auto) 0.3 0.0-0.3 10^3/uL Basophils # (Auto) 0.1 0.0-0.1 10^3/uL Prothrombin Time 13.3 12.2-14.7 SEC INR Comment 1.0 0.8-1.4 Activated Partial Thromboplast Time 39 H 24-35 SEC Sodium Level 140 135-145 MMOL/L Potassium Level 4.4 3.6-5.0 MMOL/L Chloride Level 107 98-107 MMOL/L Carbon Dioxide Level 21 21-32 MMOL/L Anion Gap 12 5-14 MMOL/L Blood Urea Nitrogen 17 7-18 MG/DL Creatinine 1.18 0.60-1.30 MG/DL Estimat Glomerular Filtration Rate > 60 BUN/Creatinine Ratio 14 Glucose Level 114 H 70-105 MG/DL Calcium Level 9.4 8.5-10.1 MG/DL Corrected Calcium 9.2 8.5-10.1 MG/DL Total Bilirubin 0.3 0.1-1.0 MG/DL Aspartate Amino Transf (AST/SGOT) 22 5-34 U/L Alanine Aminotransferase (ALT/SGPT) 18 0-55 U/L Alkaline Phosphatase 81 40-136 U/L Total Protein 8.4 H 6.4-8.2 GM/DL Albumin 4.3 3.2-4.5 GM/DL Amylase Level 82 25-125 U/L Lipase 93 H 8-78 U/L Urine Color YELLOW Urine Clarity CLEAR Urine pH 5.5 5-9 Urine Specific Dixon 1.020 1.016-1.022 Urine Protein NEGATIVE NEGATIVE Urine Glucose (UA) NEGATIVE NEGATIVE Urine Ketones NEGATIVE NEGATIVE Urine Nitrite NEGATIVE NEGATIVE Urine Bilirubin NEGATIVE NEGATIVE Urine Urobilinogen 0.2 < = 1.0 MG/DL Urine Leukocyte Esterase NEGATIVE NEGATIVE Urine RBC (Auto) TRACE-L NEGATIVE Urine RBC NONE /HPF Urine WBC NONE /HPF Urine Squamous Epithelial Cells 0-2 /HPF Urine Crystals NONE /LPF Urine Bacteria NEGATIVE /HPF Urine Casts NONE /LPF Urine Mucus NEGATIVE /LPF Urine Culture Indicated NO My Orders Orders - JESSICA WETZEL DO Ed Iv/Invasive Line Start (03/16/20 04:48) Monitor-Rhythm Ecg Trace Only (03/16/20 04:48) Amylase (03/16/20 04:48) Cbc With Automated Diff (03/16/20 04:48) Comprehensive Metabolic Panel (03/16/20 04:48) Lipase (03/16/20 04:48) Protime With Inr (03/16/20 04:48) Partial Thromboplastin Time (03/16/20 04:48) Ua Culture If Indicated (03/16/20 04:48) Ct Abd/Pelvis Wo(Kidney Stone) (03/16/20 04:48) Acute Abd Series (03/16/20 04:48) Ciprofloxacin Tablet (Cipro Tablet) (03/16/20 07:30) Metronidazole Tablet (Flagyl Tablet) (03/16/20 07:30) Vital Signs/I&O 03/16/20 03/16/20 04:30 08:20 Temp 36.9 Pulse 97 84 Resp 18 16 B/P (MAP) 146/91 (109) 156/95 Pulse Ox 99 99 O2 Delivery Room Air Room Air Progress Progress Note : Progress Note UNEVENTFUL ER STAY Diagnostic Imaging Comments CT ABDOMEN/PELVIS--PER RADIOLOGIST REPORT AT 0708 FINDINGS: Lung bases are clear. The liver, gallbladder, pancreas, right ureter are negative on this noncontrast exam. Left nephrectomy and splenectomy. SMA stent. Advanced colonic diverticulosis. There is focal bowel wall thickening and adjacent inflammatory changes in the sigmoid colon. No evidence of abscess formation or perforation. Normal appendix. Probable simple cysts in the right kidney. No evidence of bowel obstruction. No lymphadenopathy. Age-appropriate changes in the spine. No acute osseous findings. IMPRESSION: 1. CT findings consistent with acute uncomplicated diverticulitis in the sigmoid colon. Recommend colonoscopy when clinically appropriate. 2. Additional chronic and incidental findings as above. ABDOMEN XRAYS--PER RADIOLOGIST REPORT AT 0708 IMPRESSION: 1. No radiographically apparent acute abdominal abnormality. If there is persistent clinical concern, recommend CT abdomen and pelvis for further evaluation. 2. Expansile lesion involving the right lateral seventh rib which is stable since at least April 08, 2013 which is suggestive of benign etiology. Reviewed: Reviewed by Me Departure Impression Primary Impression: Sigmoid diverticulitis Disposition: HOME, SELF-CARE Condition: Stable Departure-Patient Inst. Referrals: SUSAN LOPEZ DO (PCP) Primary Care Physician MICHELLE GASPAR MD, JOHN D MD Patient Instructions: Diverticulitis (DC) Add. Discharge Instructions: CLEAR LIQUIDS--WATER, BROTH, JELLO, GATORADE, POPSICLES NO FOOD UNTIL CLEARED BY FOLLOW UP WITH DR. GASPAR IN 2-3 DAYS FOR FURTHER CARE, RETURN TO ER IF WORSE All discharge instructions reviewed with patient and/or family. Voiced understanding. Scripts Hydrocodone/Acetaminophen (Hydrocodone-Acetamin 5-325 mg) 1 Each Tablet 1 EACH PO Q4-6 HOURS PRN for PAIN, #20 TAB Prov: JESSICA WETZEL DO 03/16/20 Dicyclomine HCl (Dicyclomine HCl) 20 Mg Tablet 20 MG PO Q6H for Abdominal Pain, #20 TAB Prov: JOSH WETZELA Koko DO 03/16/20 L. Acidophilus/Pectin, [place] (Acidophilus Capsule) 1 Each Capsule 2 EACH PO QID, #40 CAP Prov: JOSH WETZELA K DO 03/16/20 Metronidazole (Flagyl) 500 Mg Tablet 500 MG PO QID, #40 TAB Prov: JESSICA WETZEL K DO 03/16/20 Ciprofloxacin HCl (Ciprofloxacin HCl) 500 Mg Tablet 500 MG PO BID, #20 TAB Prov: JOSH WETZELA K DO 03/16/20 JESSICA WETZEL DO Mar 16, 2020 05:23
[2020-03-16 05:32] LABS: ALBUMIN 4.3 GM/DL (3.2-4.5)
[2020-03-16 05:33] LABS: AMYLASE 82 U/L (25-125); CHLORIDE 107 MMOL/L (98-107); POTASSIUM 4.4 MMOL/L (3.6-5.0); SODIUM 140 MMOL/L (135-145)
[2020-03-16 05:34] LABS: CALCIUM 9.4 MG/DL (8.5-10.1); PROTHROMBIN TIME PATIENT 13.3 SEC (12.2-14.7)
[2020-03-16 05:35] LABS: GLUCOSE 114 MG/DL (70-105); TOTAL PROTEIN 8.4 GM/DL (6.4-8.2)
[2020-03-16 05:36] LABS: CARBON DIOXIDE 21 MMOL/L (21-32)
[2020-03-16 05:37] LABS: BILIRUBIN,TOTAL 0.3 MG/DL (0.1-1.0)
[2020-03-16 05:38] LABS: ALKALINE PHOSPHATASE 81 U/L (40-136)
[2020-03-16 05:39] LABS: CREATININE SERUM 1.18 MG/DL (0.60-1.30); GFR ESTIMATED > 60
[2020-03-16 05:40] LABS: BUN/CREATININE RATIO 14
[2020-03-16 05:41] LABS: ALANINE AMINOTRANSFERASE 18 U/L (0-55)
[2020-03-16 05:42] LABS: LIPASE 93 U/L (8-78)
[2020-03-16 05:56] LABS: BILIRUBIN,URINE NEGATIVE (NEGATIVE); CLARITY,URINE CLEAR; COLOR,URINE YELLOW; GLUCOSE, URINE (UA) NEGATIVE (NEGATIVE); KETONES,URINE NEGATIVE (NEGATIVE); LEUKOCYTE ESTERASE ,URINE NEGATIVE (NEGATIVE); NITRITE,URINE NEGATIVE (NEGATIVE); PH,URINE 5.5 (5-9); PROTEIN,URINE NEGATIVE (NEGATIVE)
[2020-03-16 06:07] LABS: BACTERIA,URINE NEGATIVE /HPF; SQUAMOUS EPITHELIAL CELL,UR 0-2 /HPF
--- NOTE | 2020-03-16 06:54 | Diagnostic Imaging Report ---
EXAMINATION: Abdominal radiographs, acute series. DATE: March 16, 2020. CLINICAL INDICATION: 74-year-old male, abdominal pain. COMPARISON: CT abdomen October 10, 2016. KUB August 05, 2013. COMMENTS: Heart size and mediastinal contours are unremarkable. There is no identified focal airspace consolidation. There is an expansile lesion involving the right lateral seventh rib. There are no abnormally dilated gas-filled segments of small or large bowel. There is no abnormal radiodensity overlying the expected positions of the kidneys or ureters. IMPRESSION: 1. No radiographically apparent acute abdominal abnormality. If there is persistent clinical concern, recommend CT abdomen and pelvis for further evaluation. 2. Expansile lesion involving the right lateral seventh rib which is stable since at least April 08, 2013 which is suggestive of benign etiology. Dictated by: Dictated on workstation # [id number]
--- NOTE | 2020-03-16 07:05 | Diagnostic Imaging Report ---
PROCEDURE: CT urinary tract, rule out kidney stone. TECHNIQUE: Multiple contiguous axial images were obtained through the abdomen and pelvis without the use of intravenous contrast. Auto Exposure Controls were utilized during the CT exam to meet ALARA standards for radiation dose reduction. INDICATION: Flank pain. Kidney stone. COMPARISON: CT abdomen and pelvis 10/10/2016. FINDINGS: Lung bases are clear. The liver, gallbladder, pancreas, right ureter are negative on this noncontrast exam. Left nephrectomy and splenectomy. SMA stent. Advanced colonic diverticulosis. There is focal bowel wall thickening and adjacent inflammatory changes in the sigmoid colon. No evidence of abscess formation or perforation. Normal appendix. Probable simple cysts in the right kidney. No evidence of bowel obstruction. No lymphadenopathy. Age-appropriate changes in the spine. No acute osseous findings. IMPRESSION: 1. CT findings consistent with acute uncomplicated diverticulitis in the sigmoid colon. Recommend colonoscopy when clinically appropriate. 2. Additional chronic and incidental findings as above. Dictated by: Dictated on workstation # [id number]
[2020-03-16] MEDS ORDERED: METR500T PO (07:19)
[2020-03-16] MEDS ORDERED: DICY20TA10 PO (07:19)
[2020-03-16] MEDS ORDERED: L. A1CAP11 PO (07:19)
[2020-03-16] MEDS ORDERED: HYDR-3812 PO (07:19)
[2020-03-16] MEDS ORDERED: CIPR500T4 PO (07:19)
[2020-03-16] MEDS ORDERED: CIPROFLOXACIN 500 MG (CIPRO) TABLET PO SCH (07:30)
[2020-03-16] MEDS ORDERED: metroNIDAZOLE 500 MG (FLAGYL) TAB PO ONE (07:30)
[2020-03-16 08:20] VITALS: BP 156/95
== END 2020-03-16 08:20 | disposition home or self-care (01) ==
LOC: EDUNIT# 04:26 → ER 04:27
DX: K57.32 Diverticulitis of large intestine without perforation or abscess without bleeding (principal); I25.10 Atherosclerotic heart disease of native coronary artery without angina pectoris; I25.2 Old myocardial infarction; E78.00 Pure hypercholesterolemia, unspecified; I10 Essential (primary) hypertension; G89.29 Other chronic pain; M54.9 Dorsalgia, unspecified; E03.9 Hypothyroidism, unspecified; F41.9 Anxiety disorder, unspecified; F32.9 Major depressive disorder, single episode, unspecified; Z88.0 Allergy status to penicillin; Z79.82 Long term (current) use of aspirin; Z87.891 Personal history of nicotine dependence; Z95.5 Presence of coronary angioplasty implant and graft; Z90.5 Acquired absence of kidney; Z79.891 Long term (current) use of opiate analgesic; Z85.528 Personal history of other malignant neoplasm of kidney
CPT/HCPCS: 36415; 74022; 74176; 80053; 81000; 82150; 83690; 85025; 85610; 85730; 93041

== ENCOUNTER 2020-03-29 14:24 | Emergency (ER) | payer MEDICARE, OTHER ==
[~2020-03-29] VITALS: Ht 180.3 cm; Wt 81.6 kg
[~2020-03-29 14:24] MED LIST changes: +CIPR500T4 PO; +DICY20TA10 PO; +HYDR-3812 PO; +L. A1CAP11 PO
--- NOTE | 2020-03-29 14:30 | NUR ---
Dr. Hamm performed neuro assessment upon arrival with no abnormalities noted.
--- NOTE | 2020-03-29 14:33 | ED Neurological Problem ---
General Stated Complaint: DIZZINESS;LEFT SIDED NUMBNESS Source: patient Exam Limitations: no limitations History of Present Illness Date Seen by Provider: Mar 29, 2020 Time Seen by Provider: 14:32 Initial Comments 74-year-old male presents with a right-sided headache and some left-sided "numbness" patient reports he was outside working this morning when he came in to lay down he developed a headache on the right side had some mild numbness on the left side. Reports that numbness has resolved. Still has a mild headache. He had no focal weakness or deficit. He has some mild vision changes. He does report a prior history of headaches. Allergies and Home Medications Allergies Coded Allergies: Penicillins (Verified Allergy, Mild, HIVES, 08/27/19) Home Medications Acetaminophen 500 Mg Tablet, 1,000 MG PO BID, (Reported) Lauhd-R-Chnrqrrwkozfj 150 Unit Tablet, 1 TAB PO TID PRN for BLOATING, (Reported) Aspirin 81 Mg Tab.chew, 81 MG PO DAILY, (Reported) Ciprofloxacin HCl 500 Mg Tablet, 500 MG PO BID Prescribed by: JESSICA WETZEL on 03/16/20718 Dicyclomine HCl 20 Mg Tablet, 20 MG PO Q6H Prescribed by: JESSICA WETZEL on 03/16/20718 Hydrocodone/Acetaminophen 1 Each Tablet, 1 EACH PO Q4-6 HOURS PRN for PAIN Prescribed by: JESSICA WETZEL on 03/16/20718 L. Acidophilus/Pectin, [place] 1 Each Capsule, 2 EACH PO QID Prescribed by: JESSICA WETZEL on 03/16/20718 Levothyroxine Sodium 50 Mcg Tablet, 50 MCG PO DAILY, (Reported) Metoprolol Succinate 25 Mg Tab.er.24h, 12.5 MG PO BID, (Reported) TAKES 1/2 (25MG) TABLET Metronidazole 500 Mg Tablet, 500 MG PO QID Prescribed by: JESSICA WETZEL on 03/16/20718 Paroxetine HCl 20 Mg Tablet, 20 MG PO DAILY, (Reported) Simethicone 125 Mg Tab.chew, 125 MG PO TID PRN for GAS, (Reported) Simvastatin 40 Mg Tablet, 40 MG PO HS, (Reported) Patient Home Medication List Home Medication List Reviewed: Yes Review of Systems Review of Systems Constitutional: No chills, No dizziness, No fever Eyes: See HPI Respiratory: No cough, No short of breath Cardiovascular: No chest pain, No palpitations Gastrointestinal: No constipation, No nausea, No vomiting Genitourinary: no symptoms reported Musculoskeletal: no symptoms reported Skin: see HPI Psychiatric/Neurological: Headache, Numbness; Denies Weakness Past Amxwdwh-Qouedv-Gptcfy Hx Past Med/Social Hx: Reviewed Nursing Past Med/Soc Hx Patient Social History Former Smoker, Quit: Aug 27, 1999 Recent Foreign Travel: No Contact w/Someone Who Travel: No Recent Hopitalizations: No Immunizations Up To Date Tetanus Booster (TDap): Unknown Date of Pneumonia Vaccine: Aug 04, 2017 Date of Influenza Vaccine: May 26, 2019 Seasonal Allergies Seasonal Allergies: Yes Past Medical History Surgeries: Yes (ELBOW,LEFT NEPHRECTOMY & SPLEENECTOMY,LEFT HAND,SHOULDER,T&A) Abdominal, Adenoidectomy, Eye Surgery, Nephrectomy, Orthopedic, Tonsillectomy, Vascular Surgery Respiratory: No Currently Using CPAP: No Currently Using BIPAP: No Cardiac: Yes (STENT IN AORTA) Aneurysm, Coronary Artery Disease, Heart Attack, High Cholesterol, Hypertension Neurological: No Reproductive Disorders: No Sexually Transmitted Disease: No HIV/AIDS: No Genitourinary: Yes (LEFT NEPHRECTOMY FOR CANCER; RIGHT RENAL CYSTS) Gastrointestinal: Yes (HIATAL HERNIA REPAIR) Abdominal Hernia, Gastroesophageal Reflux, Diverticulosis, Hiatal Hernia Musculoskeletal: Yes (MULTIPLE ORTHO SURGERIES) Arthritis, Chronic Back Pain Endocrine: Yes Hypothyroidsim HEENT: Yes (GLASSES; RETINAL TEAR) Cataract Loss of Vision: Denies Hearing Impairment: Denies Cancer: Yes Kidney Did You Recieve Any Treatments: Yes What Type of Treatment Did You: Surgical Intervention Psychosocial: Yes Anxiety, Depression Integumentary: No Blood Disorders: No Adverse Reaction/Blood Tranf: No (N/A) Family Medical History No Pertinent Family Hx PSH: -1990--HAND SURGERY -1994--TENNIS ELBOW SURGERY -2004--LEFT NEPHRECTOMY AND SPLENECTOMY -2005--LEFT SHOULDER SURGERY -2008--CYNTHIA FUNDOPLICATION -2010--RIGHT SHOULDER SURGERY -2010--ABDOMINAL AORTIC ANEURYSM STENTS -2010--REPAIR OF RETINAL TEAR ---BILATERAL CATARACTS -2011--LEFT SHOULDER SURGERY -2013--RIGHT HAND CARPAL TUNNEL AND TRIGGER FINGER SURGERY -2013--RIGHT KNEE ARTHROSCOPY -2016--LEFT KNEE ARTHROSCOPY -2017--RIGHT CARPAL TUNNEL Physical Exam Vital Signs Vital Signs - First Documented 03/29/20 14:26 Temp 36.3 Pulse 87 Resp 16 B/P (MAP) 160/101 (120) Pulse Ox 99 O2 Delivery Room Air Capillary Refill : Height, Weight, BMI Height: 5'11" Weight: 185lbs. oz. 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, no motor/sensory deficits, normal mood/affect, oriented x 3 Crainal Nerves: normal hearing, normal speech, PERRL; No abnormal speech, No facial asymmetry, No facial weakness, No tongue deviation to R, No tongue deviation to L Coordination/Gait: normal gait Motor/Sensory: no motor deficit, no sensory deficit, no pronator drift Skin: normal color, warm/dry Progress/Results/Core Measures Results/Orders Lab Results Laboratory Tests Test 03/29/20 14:39 03/29/20 14:42 03/29/20 15:11 Range/Units White Blood Count 8.0 4.3-11.0 10^3/uL Red Blood Count 4.24 L 4.35-5.85 10^6/uL Hemoglobin 13.0 L 13.3-17.7 G/DL Hematocrit 40 40-54 % Mean Corpuscular Volume 94 80-99 FL Mean Corpuscular Hemoglobin 31 25-34 PG Mean Corpuscular Hemoglobin Concent 33 32-36 G/DL Red Cell Distribution Width 14.5 10.0-14.5 % Platelet Count 446 H 130-400 10^3/uL Mean Platelet Volume 10.2 7.4-10.4 FL Neutrophils (%) (Auto) 46 42-75 % Lymphocytes (%) (Auto) 39 12-44 % Monocytes (%) (Auto) 11 0-12 % Eosinophils (%) (Auto) 3 0-10 % Basophils (%) (Auto) 1 0-10 % Neutrophils # (Auto) 3.7 1.8-7.8 X 10^3 Lymphocytes # (Auto) 3.1 1.0-4.0 X 10^3 Monocytes # (Auto) 0.9 0.0-1.0 X 10^3 Eosinophils # (Auto) 0.3 0.0-0.3 10^3/uL Basophils # (Auto) 0.1 0.0-0.1 10^3/uL Prothrombin Time 14.2 12.2-14.7 SEC INR Comment 1.1 0.8-1.4 Activated Partial Thromboplast Time 30 24-35 SEC D-Dimer 1.32 H 0.00-0.49 UG/ML Sodium Level 140 135-145 MMOL/L Potassium Level 4.0 3.6-5.0 MMOL/L Chloride Level 109 H 98-107 MMOL/L Carbon Dioxide Level 23 21-32 MMOL/L Anion Gap 8 5-14 MMOL/L Blood Urea Nitrogen 17 7-18 MG/DL Creatinine 1.31 H 0.60-1.30 MG/DL Estimat Glomerular Filtration Rate 54 BUN/Creatinine Ratio 13 Glucose Level 147 H 70-105 MG/DL Calcium Level 8.6 8.5-10.1 MG/DL Corrected Calcium 8.8 8.5-10.1 MG/DL Total Bilirubin 0.3 0.1-1.0 MG/DL Aspartate Amino Transf (AST/SGOT) 27 5-34 U/L Alanine Aminotransferase (ALT/SGPT) 21 0-55 U/L Alkaline Phosphatase 55 40-136 U/L Total Creatine Kinase 106 30-200 U/L Troponin I < 0.028 <0.028 NG/ML Total Protein 7.5 6.4-8.2 GM/DL Albumin 3.8 3.2-4.5 GM/DL Glucometer 147 H 70-110 MG/DL Urine Color YELLOW Urine Clarity CLEAR Urine pH 5.5 5-[address] 1.020 1.016-1.022 Urine Protein NEGATIVE NEGATIVE Urine Glucose (UA) NEGATIVE NEGATIVE Urine Ketones NEGATIVE NEGATIVE Urine Nitrite NEGATIVE NEGATIVE Urine Bilirubin NEGATIVE NEGATIVE Urine Urobilinogen 0.2 < = 1.0 MG/DL Urine Leukocyte Esterase NEGATIVE NEGATIVE Urine RBC (Auto) NEGATIVE NEGATIVE Urine RBC NONE /HPF Urine WBC RARE /HPF Urine Squamous Epithelial Cells NONE /HPF Urine Crystals NONE /LPF Urine Bacteria NEGATIVE /HPF Urine Casts NONE /LPF Urine Mucus NEGATIVE /LPF Urine Culture Indicated NO My Orders Orders - TURK,EVELYNE L DO Cbc With Automated Diff (03/29/20 14:30) Protime With Inr (03/29/20 14:30) Partial Thromboplastin Time (03/29/20 14:30) Comprehensive Metabolic Panel (03/29/20 14:30) Fibrin Degradation Products (03/29/20 14:30) Troponin I (03/29/20 14:30) Ua Culture If Indicated (03/29/20 14:30) Chest 1 View, Ap/Pa Only (03/29/20 14:30) Ekg Tracing (03/29/20 14:30) Nothing By Mouth (03/29/20 Lunch) Accucheck Stat ONCE (03/29/20 14:30) Ed Iv/Invasive Line Start (03/29/20 14:30) Vital Signs Stroke Patient Q15M (03/29/20 14:30) Intake & Output 06,14,22 (03/29/20 14:30) Monitor-Rhythm Ecg Trace Only (03/29/20 14:30) Dysphagia Screening Tool (03/29/20 14:30) Lipid Panel (03/30/20 06:00) Ct Angio Head/Neck (03/29/20 14:30) Creatine Kinase (03/29/20 14:30) Ed Iv/Invasive Line Start (03/29/20 14:34) Ns Iv 1000 Ml (Sodium Chloride 0.9%) (03/29/20 14:34) Iohexol Injection (Omnipaque 350 Mg/Ml 1 (03/29/20 16:00) Received Contrast (Hold Metformin- Contr (03/29/20 16:00) Ns (Ivpb) (Sodium Chloride 0.9% Ivpb Bag (03/29/20 16:00) Sodium Chloride Flush (Catheter Flush Sy (03/29/20 16:00) Medications Given in ED Current Medications Medications Dose Ordered Sig/Shirley Route Start Time Stop Time Status Last Admin Dose Admin Iohexol 75 ml ONCE ONCE IV 03/29/20 16:00 03/29/20 16:01 DC 03/29/20 16:22 75 ML Sodium Chloride 100 ml ONCE ONCE IV 03/29/20 16:00 03/29/20 16:01 DC 03/29/20 16:22 100 ML Vital Signs/I&O 03/29/20 14:26 Temp 36.3 Pulse 87 Resp 16 B/P (MAP) 160/101 (120) Pulse Ox 99 O2 Delivery Room Air Progress Progress Note : Time: 16:51 Progress Note Patient with a negative CTA of head and neck. Patient felt better following IV fluids. Patient expanded on his heat exposure from this morning. Reports that he got significantly overheated a couple weeks ago and hasn't felt good since then. That this morning exacerbated that when he was outside. His labs do show what looks like some mild dehydration and concentration of his blood. Patient likely with heat exhaustion and headache causing his symptoms. Patient is stable will be discharged home. He should follow-up with primary care provider for continuation of care and further evaluation in the next few days. Initial ECG Impression Date: Mar 29, 2020 Initial ECG Impression Time: 14:28 Initial ECG Rate: 88 Initial ECG Rhythm: Normal Sinus, PAC Initial ECG Intervals: Normal Initial ECG Impression: Nonspecific Changes Comment sinus rhythem with pac, left axis deviation, no acute findings. Diagnostic Imaging Diagonstic Imaging: CT Plain Films/CT/US/NM/MRI: head Comments [facility] [place], [place] NAME: BORA [facility]VANO [facility] REC#: [id number] PT STATUS: REG ER : 1945 PHYSICIAN: EVELYNE TURK DO ADMIT DATE: 03/29/20/ER Draft Date of Exam:03/29/20 CT ANGIO HEAD/NECK PROCEDURE: CT angiography of the head and CT angiography of the neck with and without contrast. TECHNIQUE: Contiguous noncontrast images were obtained from the skull base through the vertex. After intravenous contrast administration, helical CT angiography of the neck was performed. Source data was reformatted into 3D MIP projections. Delayed post contrast acquisition was also obtained. Auto Exposure Controls were utilized during the CT exam to meet ALARA standards for radiation dose reduction. INDICATION: Left-sided weakness. Dizziness. Blurred vision. COMPARISON: None. FINDINGS: CTA NECK: The visualized portions of the aortic arch demonstrate no evidence of aneurysm or dissection. There is conventional branching pattern of the great vessels of the aorta. The brachiocephalic artery is normal in course and caliber. The right and left common carotid origins are unremarkable. The origin of the left subclavian artery is patent. The common carotid arteries and internal carotid arteries demonstrate a tortuous course. There is atherosclerotic plaque in the bilateral carotid bulbs and proximal internal carotid arteries without flow-limiting stenosis. No evidence of dissection in the carotid systems. The external carotid arteries are patent and unremarkable. The right vertebral artery is dominant. The origin of the right vertebral artery is seen and is unremarkable. The origin of the left vertebral artery is seen and is unremarkable. There is no focal stenosis seen within the neck. There is no dissection. The vertebral arteries are well visualized to up to the level of the basilar artery. The osseous structures of the cervical spine are unremarkable. Included views through the lung apices demonstrate no focal consolidation. CTA BRAIN: Atherosclerotic plaque is seen in the esqueda of the bilateral distal internal carotid arteries without significant stenosis. No stenosis is seen in the bilateral anterior, middle, and posterior cerebral arteries. No evidence of aneurysm the de[place] of [place]. In the posterior circulation, both of the vertebral arteries demonstrate normal opacification. Both the right and left PICA arteries are identified. The basilar artery is normal in course and caliber. The terminal branch vessels including the superior cerebellar arteries unremarkable. CT HEAD: No large acute territorial ischemia, mass, or hemorrhage. No midline shift or mass effect. Decreased attenuation is seen in the periventricular and subcortical white matter. The ventricles and cortical sulci are prominent. The basilar cisterns are patent and unremarkable. The calvarium is intact. The visualized paranasal sinuses are clear. IMPRESSION: 1. No stenosis or aneurysm in the de[place] of [place]. 2. No stenosis or dissection the bilateral carotid and vertebral arteries. 3. No large acute territorial ischemia, mass, or hemorrhage. 4. Chronic microvascular disease. 5. Generalized parenchymal volume loss. Departure Impression Primary Impression: Heat exhaustion Qualified Codes: T67.5XXA - Heat exhaustion, unspecified, initial encounter Additional Impression: Mild dehydration Disposition: 01 HOME, SELF-CARE Condition: Stable Departure-Patient Inst. Referrals: SUSAN LOPEZ DO (PCP) Primary Care Physician Patient Instructions: Dehydration, Adult (DC), Heat Exhaustion and Heat Stroke (DC) Add. Discharge Instructions: Drink plenty of fluids Do your outside activities in the morning when it is cool Follow-up with your primary care provider in 3-4 days for continuation of care and recheck of your symptoms to ensure improving TURK,EVELYNE L DO Mar 29, 2020 14:33
[2020-03-29] MEDS ORDERED: NS IV 1000 ML 1,000 ML IV SCH (14:34)
[2020-03-29 15:20] LABS: BASOPHILS # (AUTO) 0.1 10^3/uL (0.0-0.1); BASOPHILS % (AUTO) 1 % (0-10); EOSINOPHILS # (AUTO) 0.3 10^3/uL (0.0-0.3); EOSINOPHILS % (AUTO) 3 % (0-10); HEMATOCRIT 40 % (40-54); LYMPHOCYTES # (AUTO) 3.1 X 10^3 (1.0-4.0); LYMPHOCYTES % (AUTO) 39 % (12-44); MEAN CORPUSCULAR HEMOGLOBIN 31 PG (25-34); MEAN CORPUSCULAR HGB CONC 33 G/DL (32-36); MEAN CORPUSCULAR VOLUME 94 FL (80-99); MEAN PLATELET VOLUME 10.2 FL (7.4-10.4); MONOCYTES # (AUTO) 0.9 X 10^3 (0.0-1.0); MONOCYTES % (AUTO) 11 % (0-12); NEUTROPHILS # (AUTO) 3.7 X 10^3 (1.8-7.8); NEUTROPHILS % (AUTO) 46 % (42-75); PLATELET COUNT 446 10^3/uL (130-400); RED CELL DISTRIBUTION WIDTH 14.5 % (10.0-14.5)
[2020-03-29 15:20] LABS: BILIRUBIN,URINE NEGATIVE (NEGATIVE); CLARITY,URINE CLEAR; COLOR,URINE YELLOW; GLUCOSE, URINE (UA) NEGATIVE (NEGATIVE); KETONES,URINE NEGATIVE (NEGATIVE); LEUKOCYTE ESTERASE ,URINE NEGATIVE (NEGATIVE); NITRITE,URINE NEGATIVE (NEGATIVE); PH,URINE 5.5 (5-9); PROTEIN,URINE NEGATIVE (NEGATIVE)
--- OUTSIDE RECORDS SUMMARY | 2020-03-29 15:24 | XMS REPORT ---
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 Name Role Phone MANDY KEYS Kaushik Unavailable CHULA LAWS Unavailable SUSAN LOPEZ Unavailable TOMMIE GARCIA Unavailable SCOOTER [place] SENIOR PRODUCT CONSULTANT Unavailable Unavailable KINSEY ISAAC SENIOR PRODUCT CONSULTANT Unavailable Unavailable HERNÁN BRADY, GHAZALA Silva Unavailable Unavailable CHERELLE BARBER Unavailable Unavailable JOHN DO, SUSAN F Unavailable Unavailable JOHN DO, SUSAN F Unavailable Unavailable DAMARI DO, JESSICA K Unavailable Unavailable Unavailable Unavailable Unavailable Unavailable Unavailable Unavailable Allergies No Information Encounters Encounter Date Encounter Type Encounter Diagnosis Care Provider Facility Start: Emergency department JESSICA K DAMARI DO [facility] 03-16-2020 patient visit [facility] End: 03-16-2020 Start: Patient encounter JESSICA HAHNO DO [facility] 03-16-2020 procedure [facility] Start: Patient encounter SUSAN David JOHN DO [facility] 11-10-2019 [facility] End: 12-27-2019 Start: Patient encounter SUSAN F JOHN DO [facility] 11-07-2019 [facility] Start: Patient encounter SUSAN F JOHN DO [facility] 11-05-2019 procedure [facility] Start: Patient encounter SUSAN F JOHN DO [facility] 11-03-2019 [facility] Start: Patient encounter SUSAN F JOHN DO [facility] 10-31-2019 procedure [facility] Start: Patient encounter SUSAN F JOHN DO [facility] 10-29-2019 [facility] Start: Patient encounter SUSAN F JOHN DO [facility] 10-27-2019 procedure [facility] Start: Patient encounter SUSAN YUER DO [facility] 10-24-2019 procedure [facility] Start: Patient encounter SUSAN YUER DO [facility] 10-22-2019 procedure [facility] Start: Patient encounter SUSAN YUER DO [facility] 10-20-2019 procedure [facility] Start: Patient encounter SUSAN YUER DO [facility] 10-17-2019 procedure [facility] Start: Patient encounter SUSAN YUER DO [facility] 10-15-2019 procedure [facility] Start: Patient encounter SUSAN YUER DO [facility] 10-13-2019 procedure [facility] Start: Patient encounter SUSAN YUER DO [facility] 10-10-2019 procedure [facility] Start: Patient encounter SUSAN YUER DO [facility] 10-08-2019 procedure [facility] Start: Patient encounter SUSAN YUER DO [facility] 10-06-2019 procedure [facility] Start: Patient encounter SUSAN YUER DO [facility] 10-03-2019 procedure [facility] Start: Patient encounter SUSAN YUER DO [facility] 10-01-2019 procedure [facility] Start: Patient encounter SUSAN YUER DO [facility] 09-29-2019 procedure [facility] Start: Evaluation and SUSAN YUER DO [facility] 09-09-2019 management of [facility] inpatient End: 09-11-2019 Start: Patient encounter SUSAN YUER DO [facility] 09-09-2019 procedure [facility] ([id number]) End: 09-11-2019 Start: Patient encounter SUSAN YUER DO [facility] 08-27-2019 procedure [facility] ([id number]) End: 08-27-2019 Start: Patient encounter CHERELLE BARBER [facility] is 06-24-2019 procedure [facility] ([id number]) Start: Patient encounter GHAZALA JIM MD Not Av ailable ([id number]) 11-27-2018 procedure Start: Patient encounter VERITO AMATO Not Beronica ilable ([id number]) 08-26-2018 procedure Start: Discharged Recurring MILA ALMEIDA As cension [facility] 07-23-2018 Work Phone: [facility] ([id number]) End: 07-26-2018 Start: Patient encounter MILA ALMEIDA Not Availab le ([id number]) 07-23-2018 procedure End: 07-26-2018 Start: Patient encounter MILA JUAN PABLO Not Availab le ([id number]) 07-18-2018 procedure Start: Patient encounter MILA JUAN PABLO Not Availab le ([id number]) 07-16-2018 procedure Start: Patient encounter MILA JUAN PABLO Not Availab le ([id number]) 07-08-2018 procedure Start: Patient encounter MILA JUAN PABLO Not Availab le ([id number]) 07-04-2018 Start: Patient encounter MILA JUAN PABLO Not Availab le ([id number]) 07-01-2018 Start: Patient encounter MILA ALMEIDA Not Availab le ([id number]) 06-27-2018 Start: Patient encounter MILA ALMEIDA Not Availab le ([id number]) 06-25-2018 Start: Patient encounter MILA ALMEIDA Not Availab le ([id number]) 06-21-2018 Start: Patient encounter MILA ALMEIDA Not Availab le ([id number]) 06-18-2018 Start: Patient encounter MILA ALMEIDA Not Availab le ([id number]) 06-13-2018 Start: Patient encounter CHERELLE BARBER Not Availab le ([id number]) 10-23-2017 Start: Patient encounter SUSAN YUER DO Not Beronica ilable ([id number]) 09-17-2017 Start: Patient encounter SCOOTER PHILIPPE Not Availab le ([id number]) 02-13-2017 procedure End: 02-13-2017 Start: Patient encounter KINSEY PONCHO Not Availab le ([id number]) 10-10-2016 procedure Start: Emergency department CARMEN HOLLEY MD Not Available ([id number]) 12-05-2015 patient visit End: 12-05-2015 Start: Patient encounter SUSAN LOPEZ DO Not Beronica ilable ([id number]) 08-04-2014 procedure End: 08-04-2014 Start: Patient encounter SUSAN LOPEZ DO Not Beronica ilable ([id number]) 05-21-2014 procedure Start: Patient encounter SUSAN LOPEZ DO Not Beronica ilable ([id number]) 05-05-2014 procedure End: 05-05-2014 Start: Patient encounter CHULA LAWS MD Not A vailable ([id number]) 02-18-2014 procedure End: 03-26-2014 Start: Patient encounter SUSAN ARRIAZA MD Not Avai lable ([id number]) 02-04-2014 procedure Start: Patient encounter SUSAN ARRIAZA MD Not Avai lable ([id number]) 02-02-2014 procedure Start: Patient encounter CHULA LAWS MD Not A vailable ([id number]) 01-20-2014 procedure Start: Patient encounter SUSAN JOHN DO Not Beronica ilable ([id number]) 10-14-2013 procedure End: 11-05-2013 Start: Patient encounter ANGELICA BROWER MD Not Availab le ([id number]) 09-29-2013 procedure Start: Patient encounter SUSAN LOPEZ DO Not Beronica ilable ([id number]) 08-05-2013 procedure End: 08-05-2013 Start: Patient encounter SUSAN YUER DO Not Beronica ilable ([id number]) 07-31-2013 procedure Start: Patient encounter CHULA LAWS MD Not A vailable ([id number]) 07-28-2013 procedure Start: Patient encounter SUSAN LOPEZ DO Not Beronica ilable ([id number]) 07-01-2013 procedure End: 07-21-2013 Start: Patient encounter CHERELLE BARBER Not Availab le ([id number]) 05-28-2013 procedure Start: Patient encounter ANGELICA BROWER MD Not Availab le ([id number]) 04-08-2013 procedure Start: Patient encounter EPIFANIO GOLDEN MD [facility] Not Beronica ilable ([id number]) 04-03-2013 procedure Start: Patient encounter MICHELLE GASPAR MD Not Availa ble ([id number]) 07-29-2009 procedure End: 07-29-2009 Other specified SUSAN LOPEZ DO Not Available (0000 0) pre-operative examination Pre-operative SUSAN YUER DO Not Available (0000 0) cardiovascular examination Encounter for SUSAN LOPEZ DO [facility] laboratory ([id number]) examination Medical Equipment No Information Goals No Information Immunizations No Information Interventions No Information Medications Medication Drug Dates Sig Sig (Original) Class(es) (Normalized) Hydrocodone/Acetaminophe Start: take 7.5-325 Hydr ocodone/Acetaminophen ([place] 7.5-325 n ([place] 7.5-325 Tablet) 08-04-2014 tablets by Tabl et) 1 Each Tablet, 1 Each Oral Every 1 Each Tablet, 1 Each mouth every 4HRS as needed for Pain Oral End: four hours as Discontinued (1 source) 06-11-2015 needed for pain, then take 1 tablet by mouth as needed for pain Payers No Information Plan of Treatment The data below is from unstructured sources Discharge Date 06/11/15 8:23pm Disposition 01 HOME, SELF-CARE Condition at Discharge Improved Instructions/Education Provided Cell ulitis (ED) Armendariz's Cyst (ED) Prescriptions See Medication Section Referrals MANDY KEYS MD - [facility] Physician Additional Instructions/Education Al l discharge instructions reviewed with patient and/or family. Voiced understanding. Medications as instructed. Continue usual home medications. Elevate the right foot on pillows, he may use an ice pack or pad as needed for symptoms. Follow-up with her family practitioner Sunday for recheck. Call first thing Sunday morning for appointment time. Return to the emergency department immediately for worsened discoloration, numbness, weakness, fever, redness, swelling, or any other concerns. Discharge Date 05/07/15 9:22am Instructions/Education Provided DR. MOSS-POST EPIDURAL INST Prescriptions See Medication Section Prescriptions See Medication Section Prescriptions See Medication Section Problems Active Problems Problem Problem Date Last Documented Episodic/Chr Provider Classificati Recorded Date onic on Abdominal Umbilical hernia without mention of Episodic SUSAN hernia obstruction or gangrene SOFIYA BRADY (2 sources) Abdominal Unspecified abdominal pain 03-17-2020 Episodic JESSICA DAMARI DO pain (2 sources) Acute ST elevation (STEMI) myocardial Chronic CHERELLE myocardial infarction involving other sites BA HOANG infarction (3 sources) Allergic Allergy status to penicillin 03-17-2020 Episodic JESSICA DAMARI DO reactions (2 sources) Anxiety Anxiety disorder, unspecified 03-17-2020 Chronic JESSICA DAMARI DO disorders (2 sources) Aortic; Aneurysm of other specified artery Chronic SUSAN peripheral; ; Translations: [Aortic ectasia, CIRA RAYA MD and visceral unspecified site] artery aneurysms (11 sources) Cancer of Malignant neoplasm of kidney, Chronic ANGELICA LEONARDA kidney and except pelvis renal pelvis (7 sources) Cancer of Personal history of other malignant 03-17-2020 Epi sodic JESSICA DAMARI DO kidney and neoplasm of kidney renal pelvis (2 sources) Coronary Atherosclerotic heart disease of 03-17-2020 Chroni c ALI CHANTEL atherosclero [place] coronary artery without MD F ACC sis and angina pectoris ; Translati ons: other heart [Coronary atherosclerosis o f [place] disease coronary artery] (21 sources) Coronary Presence of coronary angioplasty 03-17-2020 Episod ic JESSICA HAHNO DO atherosclero implant and graft sis and other heart disease (2 sources) Disorders of Other and unspecified 03-17-2020 Chronic ALI CHANTEL lipid hyperlipidemia ; Translations: MD Hernandez ACC metabolism [Hyperlipidemia, unspecifie d] (17 sources) Diverticulos Diverticulosis of colon (without 03-17-2020 Chron ic CHULA is and mention of hemorrhage) ; SANDNESS M D diverticulit Translations: [Diverticulit is of is colon (without mention of (6 sources) hemorrhage)] Esophageal Reflux esophagitis ; Translations: Chronic TAKAAKI KIDO disorders [Gastro-esophageal reflux disease M D (7 sources) without esophagitis] Essential Essential (primary) hypertension 03-17-2020 Chroni c VERITO hypertension JOY PA (13 sources) Fluid and Hyperpotassemia Episodic CHERELLE electrolyte BAIMA disorders (2 sources) Gastritis Unspecified gastritis and Episodic TA KAAKI KIDO and gastroduodenitis, without mention M D duodenitis of hemorrhage ; Translation s: (4 sources) [Other specified gastritis, without mention of hemorrhage] Heart valve Nonrheumatic mitral (valve) Chronic CHERELLE disorders insufficiency BAIMA (5 sources) Hyperplasia Hypertrophy (benign) of prostate Chronic ANGELICA LEONARDA of prostate without urinary obstruction and MD (4 sources) other lower urinary tract s [place] (LUTS) Immunization Screening examination for other Episodic SUSAN s and specified bacterial and spirochetal JOHN DO screening diseases ; Translations: [C arrier for or suspected carrier of Met hicillin infectious resistant Staphylococcus au reus] disease (14 sources) Joint Derangement of lateral meniscus, Chronic SUSAN disorders unspecified ; Translations: [Other JOHN DO and and unspecified derangement of dislocations medial meniscus] ; trauma-relat ed (12 sources) Joint Tear of medial cartilage or Episodic SUSAN disorders meniscus of knee, current ; STRINGE R DO and Translations: [Chondromalac ia of dislocations patella] ; trauma-relat ed (4 sources) Malaise and Other fatigue Episodic CHERELLE fatigue BAIMA (6 sources) Mood Major depressive disorder, single 03-17-2020 Chron ic SUSAN disorders episode, unspecified JOHN DO (7 sources) Occlusion or Occlusion and stenosis of carotid Chronic CHERELLE stenosis of artery without mention of cerebral BAIMA precerebral infarction arteries (1 source) Osteoarthrit Osteoarthrosis, localized, not Chronic CHULA is specified whether primary or DAGOBERTO VILLEGAS MD (11 sources) secondary, lower leg ; Translations: [Unilateral primary osteoarthritis, right knee] Other Aftercare following joint 12-29-2019 Chronic SUSAN aftercare replacement surgery JOHN DO (1 source) Other Care involving other physical Episodic SUSAN aftercare therapy JOHN DO (6 sources) Other Aftercare following surgery of the Episodic SUSAN aftercare musculoskeletal system, NEC STRINGE R DO (2 sources) 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 03-17-2020 Epis odic VERITO aftercare JOY AMATO (4 sources) Other Other retirement (current) drug Episodic VERITO aftercare therapy JOY AMATO (2 sources) Other adjunct faculty for medical terminology (current) use of opiate 03-17-2020 Episo dic JESSICA DAMARI DO aftercare analgesic (2 sources) Other and Other ill-defined heart diseases Chronic CHERELLE ill-defined BAIMA heart disease (3 sources) Other bone Disorder of bone, unspecified Episodic GHAZALA disease and HERNÁN BRADY musculoskele kamryn deformities (2 sources) Other Disorder of arteries and Chronic HEA THER circulatory arterioles, unspecified BAIMA disease (2 sources) Other Presence of other cardiac implants Chronic SUSAN circulatory and grafts JOHN DO disease (5 sources) Other Presence of right artificial knee 12-28-2019 Chron ic SUSAN connective joint JOHN DO tissue disease (19 sources) Other Pain in left hand Episodic SUSAN connective JOHN DO tissue disease (3 sources) Other Adhesive capsulitis of shoulder Episodic SUSAN connective JOHN DO tissue disease (4 sources) Other Pain in right foot Episodic VERITO connective JOY PA tissue disease (4 sources) Other Complete rupture of rotator cuff Episodic SUSAN connective JOHN DO tissue disease (2 sources) Other Nontraumatic rupture of tendons of Episodic SUSAN connective biceps (long head) JOHN DO tissue disease (2 sources) Other Other affections of shoulder Episodic SUSAN connective region, not elsewhere classified ST RINGER DO tissue disease (2 sources) Other Trigger finger (acquired) Episodic RO PRISCILA connective JOHN DO tissue disease (4 sources) Other Pain in right lower leg Episodic ROBE RT connective JOHN DO tissue disease (4 sources) Other ear Other postprocedural status Episodic MICHELLE Lacy MD organ disorders (2 sources) Other Other testicular hypofunction Chronic ANGELICA BROWER endocrine disorders (2 sources) Other eye Conjunctival hemorrhage, left eye Episodic CARMEN disorders LEYDI BRADY (4 sources) Other Personal history of other (healed) Episodic SUSAN injuries and physical injury and trauma JOHN DO conditions due to external causes (3 sources) Other Carpal tunnel syndrome Chronic CLAUDIA T nervous JOHN DO system disorders (4 sources) Other Other chronic pain 03-17-2020 Chronic JESSICA RE NO DO nervous system disorders (2 sources) Other Pain in joint, lower leg Episodic DELBERT HLEEN non-traumati EUSEBIA BRADY c joint disorders (4 sources) Other Pain in left knee 12-28-2019 Episodic SCOOTER SEW ELL non-traumati c joint disorders (21 sources) Other Effusion of joint, lower leg Episodic SUSAN non-traumati JOHN DO c joint disorders (2 sources) Other Pain in right knee 12-28-2019 Episodic SUSAN non-traumati JOHN DO c joint disorders (18 sources) Other Encounter for screening for other Episodic KINSEY PONCHO screening disorder for suspected conditions (not mental disorders or infectious disease) (5 sources) Other upper Chronic pharyngitis Chronic MICHELLE GASPAR respiratory disease (2 sources) Peripheral Acute vascular insufficiency of Episodic SUSAN and visceral intestine SOFIYA BRADY atherosclero sis (2 sources) Residual Acquired absence of kidney 12-28-2019 Episodic SUSAN codes; JOHN DO unclassified (20 sources) Residual Acquired absence of spleen Episodic R ALMA ROSA codes; JOHN DO unclassified (5 sources) Screening Personal history of nicotine 03-17-2020 Episodic SUSAN and history dependence JOHN DO of mental health and substance abuse codes (7 sources) Spondylosis; Degeneration of lumbar or Chronic AN JESUS WHITE intervertebr lumbosacral intervertebral disc ; M D al disc Translations: [Disorders of sacrum] disorders; other back problems (4 sources) Spondylosis; Spondylosis without myelopathy or Chronic VERITO intervertebr radiculopathy, lumbar region ; MART IN PA al disc Translations: [Ankylosing disorders; hyperostosis [[place]stier], t horacic other back region] problems (6 sources) Spondylosis; Lumbago with sciatica, right side ; 03-17-2020 Ep isodic CHULA intervertebr Translations: [Backache, SANDNESS M D al disc unspecified] disorders; other back problems (20 sources) Thyroid Hypothyroidism, unspecified 03-17-2020 Chronic JESSICA DAMARI DO disorders (2 sources) Thyroid Disorder of thyroid, unspecified Episodic SUSAN disorders JOHN DO (5 sources) Unclassified TOMMIE GARCIA (2 sources) Past or Other Problems Problem Problem Date Last Documented Episodic/Chr Provider Classificati Recorded Date onic on External Unspecified accident SUSAN cause codes: JOHN DO Natural/envi ronment (2 sources) External Other external cause status SUSAN cause codes: JOHN DO Unspecified (2 sources) Residual Other specified postprocedural SCOOTER DENAE codes; states unclassified (7 sources) Procedures Date Procedure Procedure Detail Performing Cl inician Start: REPLACE OF R KNEE SUSAN LOPEZ DO 09-09-2019 JT WITH SYNTH SUB, MINA Results Test Name Value Interpreta Reference Facilit Date tion Range y Time laboratory on 2020-03-16 Albumin [Mass/Vol] 4.3 g/dL Negative 3.2-4.5 PENDING 02-18 8-2 g/dL [address] 00:55-0 ([id number]) 400 ALP [Catalytic 81 U/L Negative 40-136 U/L PENDING activity/Vol] [facility] [address] [place] [address] 00:55-0 ([id number]) 400 ALT [Catalytic 18 U/L Negative 0-55 U/L PENDING activity/Vol] [facility] [address] [place] [address] 00:55-0 ([id number]) 400 Amylase [Catalytic 82 U/L Negative 25-125 U/L PENDING activity/Vol] [address] 00:55-0 ([id number]) 400 Anion gap 12 mmol/L Negative 5-14 PENDING [Moles/Vol] mmol/L [facility] [address] [place] [address] 00:55-0 ([id number]) 400 aPTT Coag (PPP) 39 s High 24-35 s PENDING [Time] [address] 00:55-0 ([id number]) 400 AST [Catalytic 22 U/L Negative 5-34 U/L PENDING activity/Vol] [address] 00:55-0 ([id number]) 400 Bacteria LM Ql Negative Invalid PENDING (Urine sed) Interpreta [facility]ATIO 020 tion Code [facility] 01:45-0 ([id number]) 400 Basophils (Bld) 0.1 10*3/uL Negative 0.0-0.1 PENDING 03-16 [#/Vol] 10*3/uL [facility] 00:55-0 ([id number]) 400 Basophils/100 WBC 0 % Negative 0-10 % PENDING 03-16 (Bld) [facility] 0[facility] 00:55-0 ([id number]) 400 Bilirubin [Mass/Vol] 0.3 mg/dL Negative 0.1-1.0 PENDING mg/dL [facility] 020 [facility] 00:55-0 ([id number]) 400 Bilirubin Ql (U) Negative Invalid NEGATIVE PENDING Interpreta LOC[facility]IO 020 tion Code [facility] 01:45-0 ([id number]) 400 Calcium [Mass/Vol] 9.4 mg/dL Negative 8.5-10.1 PENDING 02-18 8-2 mg/dL [facility] 020 [facility] 00:55-0 ([id number]) 400 Calcium [Mass/Vol] 9.2 mg/dL Negative 8.5-10.1 PENDING - 8-2 mg/dL [facility] 020 [facility] 00:55-0 ([id number]) 400 Casts LM Ql (Urine NONE Invalid PENDING sed) Interpreta LOCATIO 020 tion Code [facility] 01:45-0 ([id number]) 400 Chloride [Moles/Vol] 107 mmol/L Negative 98-107 PENDING 0 03-16-2 mmol/L LOC[facility]IO 020 [facility] 00:55-0 ([id number]) 400 Clarity (U) CLEAR Invalid PENDING Interpreta LOCATIO 020 tion Code [facility] 01:45-0 ([id number]) 400 CO2 [Moles/Vol] 21 mmol/L Negative 21-32 PENDING mmol/L [facility] 020 [facility] 00:55-0 ([id number]) 400 Color (U) YELLOW Invalid PENDING Interpreta LOC[facility] 020 tion Code [facility] 01:45-0 ([id number]) 400 Creatinine 1.18 mg/dL Negative 0.60-1.30 PENDING [Mass/Vol] mg/dL [facility] 00:55-0 ([id number]) 400 Creatinine and > Invalid PENDING Glomerular Interpreta LOCATIO 020 filtration tion Code N [facility] 00:55-0 rate.predicted panel ([id number]) 400 - Serum, Plasma or Blood Crystals LM Ql NONE Invalid PENDING (Urine sed) Interpreta LOCATIO 020 tion Code N [facility] 01:45-0 ([id number]) 400 Eosinophils (Bld) 0.3 10*3/uL Negative 0.0-0.3 PENDING [#/Vol] 10*3/uL [facility] 020 [facility] 00:55-0 ([id number]) 400 Eosinophils/100 WBC 2 % Negative 0-10 % PENDING (Bld) [facility] 020 [facility] 00:55-0 ([id number]) 400 Epithelial 0-2 Invalid PENDING cells.squamous LM Ql Interpreta LOCATIO 020 (Urine sed) tion Code [facility] 01:45-0 ([id number]) 400 Erythrocyte 13.9 % Negative 10.0-14.5 PENDING distribution width % LOCATIO 020 (RBC) [Ratio] [facility] 00:55-0 ([id number]) 400 Glucose [Mass/Vol] 114 mg/dL High 70-105 PENDING 02-18 8-2 mg/dL [facility] 020 [facility] 00:55-0 ([id number]) 400 Glucose Auto test Negative Invalid NEGATIVE PENDING 03-16 strip Ql (U) Interpreta LOCATIO 020 tion Code [facility] 01:45-0 ([id number]) 400 Hematocrit (Bld) 41 % Negative 40-54 % PENDING [Volume fraction] [facility] 0[facility] 00:55-0 ([id number]) 400 Hemoglobin (Bld) 13.4 g/dL Negative 13.3-17.7 PENDING [Mass/Vol] g/dL [facility] 020 [facility] 00:55-0 ([id number]) 400 INR Coag (Platelet 1.0 Negative 0.8-1.4 PENDING 02-18 poor plasma or LOCATIO 020 blood) [Relative [facility] 00:55-0 time] ([id number]) 400 Ketones Auto test Negative Invalid NEGATIVE PENDING 03-16 strip Ql (U) Interpreta LOCATIO 020 tion Code [facility] 01:45-0 ([id number]) 400 Leukocyte esterase Negative Invalid NEGATIVE PENDING 02-18 Test strip Ql (U) Interpreta LOCATIO 020 tion Code [facility] 01:45-0 ([id number]) 400 Lipase [Catalytic 93 U/L High 8-78 U/L PENDING 03-16 activity/Vol] LOCATIO 020 [facility] 00:55-0 ([id number]) 400 Lymphocytes (Bld) 2.5 10*3/uL Negative 1.0-4.0 PENDING [#/Vol] 10*3 LOCATIO 020 [facility] 00:55-0 ([id number]) 400 Lymphocytes/100 WBC 19 % Negative 12-44 % PENDING (Bld) LOCATIO 020 [facility] 00:55-0 (54950) 400 MCH (RBC) [Entitic 31 pg Negative 25-34 pg PENDING 02-18 mass] LOCATIO 020 [facility] 00:55-0 ([id number]) 400 MCHC (RBC) 33 g/dL Negative 32-36 g/dL PENDING [Mass/Vol] LOCATIO 020 [facility] 00:55-0 ([id number]) 400 MCV (RBC) [Entitic 95 Negative 80-99 PENDING 02-18-2 vol] [[id number]] LOCATIO 020 [facility] 00:55-0 ([id number]) 400 Monocytes (Bld) 1.4 10*3/uL High 0.0-1.0 PENDING 03-16 [#/Vol] 10*3 LOCATIO 020 [facility] 00:55-0 ([id number]) 400 Monocytes/100 WBC 10 % Negative 0-12 % PENDING 03-16 (Bld) LOCATIO 020 [facility] 00:55-0 ([id number]) 400 Mucus Ql (Urine sed) Negative Invalid PENDING 03-16 Interpreta LOCATIO 020 tion Code [facility] 01:45-0 ([id number]) 400 Neutrophils (Bld) 9.1 10*3/uL High 1.8-7.8 PENDING [#/Vol] 10*3 LOCATIO 020 [facility] 00:55-0 (05347) 400 Neutrophils/100 WBC 69 % Negative 42-75 % PENDING (Bld) LOCATIO 020 [facility] 00:55-0 (85312) 400 Nitrite Ql (U) Negative Invalid NEGATIVE PENDING Interpreta LOCATIO 020 tion Code [facility] 01:45-0 ([id number]) 400 pH (U) 5.5 [pH] Invalid 5-9 PENDING Interpreta LOCATIO 020 tion Code [facility] 01:45-0 ([id number]) 400 Platelet mean volume 10.3 Negative 7.4-10.4 PENDING (Bld) [Entitic vol] [[id number]] LOCATIO 020 [facility] 00:55-0 ([id number]) 400 Platelets (Bld) 254 10*3/uL Negative 130-400 PENDING 03-16 [#/Vol] 10*3/uL LOCATIO 020 [facility] 00:55-0 ([id number]) 400 Potassium 4.4 mmol/L Negative 3.6-5.0 PENDING [Moles/Vol] mmol/L LOCATIO 020 [facility] 00:55-0 ([id number]) 400 Protein [Mass/Vol] 8.4 g/dL High 6.4-8.2 PENDING 02-18 8-2 g/dL LOCATIO 020 [facility] 00:55-0 ([id number]) 400 Protein Ql (U) Negative Invalid NEGATIVE PENDING Interpreta LOCATIO 020 tion Code [facility] 01:45-0 ([id number]) 400 PT Coag (PPP) [Time] 13.3 s Negative 12.2-14.7 PENDING s LOCATIO 020 [facility] 00:55-0 ([id number]) 400 RBC (Bld) [#/Vol] 4.33 10*6/uL Low 4.35-5.85 PENDING 10*6/uL LOCATIO 020 [facility] 00:55-0 ([id number]) 400 RBC LM.HPF (Urine NONE Invalid PENDING sed) [#/Area] Interpreta LOCATIO 020 tion Code N [facility] 01:45-0 ([id number]) 400 RBC Ql (U) TRACE-L Invalid NEGATIVE PENDING Interpreta LOCATIO 020 tion Code [facility] 01:45-0 ([id number]) 400 Sodium [Moles/Vol] 140 mmol/L Negative 135-145 PENDING mmol/L [facility]AT[facility] 020 [facility] 00:55-0 ([id number]) 400 Specific gravity (U) 1.020 Invalid 1.016-1.02 PENDING 0 [Rel density] Interpreta 2 LOCATIO 020 tion Code N [facility] 01:45-0 ([id number]) 400 Urea nitrogen 17 mg/dL Negative 7-18 mg/dL PENDING [Mass/Vol] LOCATIO 020 [facility] 00:55-0 ([id number]) 400 Urea 14 mg/mg Invalid PENDING nitrogen/Creatinine Interpreta LOCATIO 020 [Mass ratio] tion Code N [facility] 00:55-0 ([id number]) 400 Urinalysis complete NO Invalid PENDING W Reflex Culture Interpreta LOCATIO 020 panel - Urine tion Code N [facility] 01:45-0 ([id number]) 400 Urobilinogen (U) 0.2 mg/dL Invalid < = 1.0 PENDING [Mass/Vol] Interpreta mg/dL LOCATIO 020 tion Code [facility] 01:45-0 ([id number]) 400 WBC (Bld) [#/Vol] 13.2 10*3/uL High 4.3-11.0 PENDING 10*3/uL LOCATIO 020 [facility] 00:55-0 ([id number]) 400 WBC LM.HPF (Urine NONE Invalid PENDING sed) [#/Area] Interpreta LOCATIO 020 tion Code [facility] 01:45-0 ([id number]) 400 Social History No Information Vital Signs The data below is from unstructured sources Vital Response Date/Time Temperature (Fahrenheit) 98.5 degree s F (97.6 - 99.5) 06/11/2015 5:32pm Temperature (Calculated Celsius) 36. 38719 degrees C (36.4 - 37.5) 06/11/2015 5:32pm Temperature Source Temporal 06/11/2015 5:32pm Pulse Rate (adult) 84 bpm (60 - 90) 06/11/2015 5:32pm Respiratory Rate 18 bpm (12 - 24) 06/11/2015 5:32pm O2 Sat by Pulse Oximetry 97 % (88 - 100) 06/11/2015 5:32pm Blood Pressure 145/105 mm Hg 06/11/2015 5:32pm Blood Pressure Mean 118 mm Hg 06/11/2015 5:32pm Pain Pain Intensity 8 2014 5:32pm Height (Feet) 5 feet 5:32pm Height (Inches) 11 inches 06/11/2015 5:32pm Height (Calculated Centimeters) 180. 200429 cm 06/11/2015 5:32pm Weight (Pounds) 184 pounds 06/11/2015 5:32pm Weight (Calculated Kilograms) 83.460 997 kilograms 06/11/2015 5:32pm Calculated BMI 25.66 5:32pm Vital Response Date/Time Temperature (Fahrenheit) 97.7 degree s F (97.6 - 99.5) Temperature (Calculated Celsius) 35. 36228 degrees C (36.4 - 37.5) Temperature Source Tympanic Pulse Rate (adult) 88 bpm (60 - 90) Respiratory Rate 16 bpm (12 - 24) O2 Sat by Pulse Oximetry 95 % (88 - 100) Blood Pressure 119/91 mm Hg Pain Pain Intensity 0 Height (Feet) 6 feet Height (Inches) 0.00 inches Height (Calculated Centimeters) 182. 406827 cm Weight (Pounds) 180 pounds Weight (Calculated Grams) 24761.627 gm Weight (Calculated Kilograms) 81.646 627 kilograms Height 6 ft 0 in Weight 180 lb Body Mass Index 24.4 kg/m^2 Vital Response Date/Time Temperature (Fahrenheit) 96.9 degree s F (97.6 - 99.5) 05/07/2015 8:39am Temperature (Calculated Celsius) 36. 29072 degrees C (36.4 - 37.5) 05/07/2015 8:39am Temperature Source Tympanic 05/07/2015 8:39am Pulse Rate (adult) 86 bpm (60 - 90) 05/07/2015 9:21am Respiratory Rate 18 bpm (12 - 24) 05/07/2015 9:21am O2 Sat by Pulse Oximetry 96 % (88 - 100) 05/07/2015 9:21am Blood Pressure 103/72 mm Hg 05/07/2015 9:21am Blood Pressure Mean 92 mm Hg 05/07/2015 8:39am Pain Pain Intensity 4 2014 9:21am Height (Feet) 5 feet 8:40am Height (Inches) 11.00 inches 05/07/2015 8:40am Height (Calculated Centimeters) 180. 268454 cm 05/07/2015 8:40am Weight (Pounds) 188 pounds 05/07/2015 8:40am Weight (Calculated Grams) 88116.366 gm 05/07/2015 8:40am Weight (Calculated Kilograms) 85.275 366 kilograms 05/07/2015 8:40am Calculated BMI 26.22 8:40am Vital Response Date/Time Temperature (Fahrenheit) 98.2 degree s F (97.6 - 99.5) Temperature (Calculated Celsius) 36. 18953 degrees C (36.4 - 37.5) Temperature Source Temporal Pulse Rate (adult) 85 bpm (60 - 90) Respiratory Rate 16 bpm (12 - 24) O2 Sat by Pulse Oximetry 93 % (88 - 100) Blood Pressure 137/96 mm Hg Pain Pain Intensity 0 Height (Feet) 6 feet Height (Inches) 0.00 inches Height (Calculated Centimeters) 182. 105310 cm Weight (Pounds) 180 pounds Weight (Calculated Grams) 62247.627 gm Weight (Calculated Kilograms) 81.646 627 kilograms Height 6 ft 0 in Weight 180 lb Body Mass Index 24.4 kg/m^2 No vital sign information available. Functional Status The data below is from unstructured sourcesNo functional status results.No functional status results.No functional status results.No functional status results.No functional status results.No functional status results.No functional status results.No functional status results.No functional status results.No functional status results.No functional status results.No functional status results.No functional status results.No functional status in formation available.No functional status information available.No functional sta tus information available.No functional status information available. Mental Status No Information Advance Directives Directive Response Recor ded Date/Time Advance Directives Yes 1 5:32pm Health Care Power of Cemetery [employer]orer No 06/11/15 5:32pm Organ Donor Yes 06/11/15 5:32pm Resuscitation Status Full Code 06/11/15 5:32pm Directive Response Recor ded Date/Time Advance Directives No 9:00am Health Care Power of Cemetery Laborer No 06/11/15 5:32pm Organ Donor Yes 06/11/15 5:32pm Directive Response Recor ded Date/Time Advance Directives Yes 1 10/05/13 9:03am Health Care Power of Cemetery Laborer No 08/04/14 9:03am Organ Donor Yes 08/04/14 9:03am Resuscitation Status Full Code 08/04/14 9:03am Directive Response Recor ded Date/Time Advance Directives Yes 0 05/07/15 8:36am Health Care Power of Cemetery Laborer No 05/07/15 8:36am Organ Donor Yes 05/07/15 8:36am Resuscitation Status Full Code 05/07/15 8:36am Directive Response Recor ded Date/Time Advance Directives Yes 0 05/05/14 9:11am Health Care Power of Cemetery Laborer No 05/05/14 9:11am Organ Donor Yes 05/05/14 9:11am Resuscitation Status Full Code 05/05/14 9:11am Directive Response Recor ded Date/Time Advance Directives Yes 1 10/06/12 1:00pm Health Care Power of [employer] Laborer No 08/05/13 1:00pm Organ Donor Yes 08/05/13 1:00pm Discharge Instructions No hospital discharge instructions.No hospital discharge instructions.No hospital discharge instructions.No hospital discharge instructions.No hospital discharge instructions.No hospital discharge instructions.No hospital discharge instructions.No hospital discharge instruction information available.No hospital discharge instruction information available. Additional Source Comments This clinical document has been generated using [employer] software that has been certified by the Office of the National Coordinator for Health Information Technology (ONC 15.99.04.3023.Diam.[id number]) and the National Committee for [employer] (NCQA, as an eMeasure certified technology). FOR RECORDS PERTAINING TO PATIENTS WHO ARE OR HAVE BEEN ENROLLED IN A CHEMICAL D EPENDENCY/SUBSTANCE ABUSE PROGRAM, SOME INFORMATION MAY BE OMITTED. This clinica l summary was aggregated from multiple sources. Caution should be exercised in using it in the provision of clinical care. This summary normalizes information from multiple sources, and as a consequence, information in this document may ma terially change the coding, format and clinical context of patient data. In cliff tion, data may be omitted in some cases. CLINICAL DECISIONS SHOULD BE BASED ON T HE PRIMARY CLINICAL RECORDS. [employer] provides no warranty or guara ntee of the accuracy or completeness of information in this document.The followi information is based on time limited clinical information
--- OUTSIDE RECORDS SUMMARY | 2020-03-29 15:25 | XMS REPORT | Continuity of Care Document ---
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 SUSAN F Ot Z11.2 ENCOUNTER FOR SCREENING FOR OTHER BACTER 08/28/2019 JOHN DO, SUSAN F Ot Z22.322 CARRIER OR SUSPECTED CARRIER OF METHICIL 08/28/2019 JOHN DO, SUSAN F Ot I 10 ESSENTIAL (PRIMARY) HYPERTENSION 08/28/2019 JOHN DO, SUSAN Hernandez Ot M17.11 UNILATERAL PRIMARY OSTEOARTHRITIS, RIGHT 08/28/2019 JOHN DO, SUSAN David Ot M79.661 PAIN IN RIGHT LOWER LEG 08/28/2019 JOHN DO, SUSAN F Ot R53.83 OTHER FATIGUE 08/28/2019 JOHN DO, SUSAN F Ot Z01.818 ENCOUNTER FOR OTHER PREPROCEDURAL EXAMIN 08/28/2019 JOHN DO, SUSAN F Ot Z11.2 ENCOUNTER FOR SCREENING FOR OTHER BACTER 08/28/2019 JOHN DO, SUSAN F Ot Z22.322 CARRIER OR SUSPECTED CARRIER OF METHICIL 09/11/2019 JOHN DO, SUSAN David Ot E07.9 DISORDER OF THYROID, UNSPECIFIED 09/11/2019 JOHN DO, SUSAN Hernandez Ot E78.5 HYPERLIPIDEMIA, UNSPECIFIED 09/11/2019 JOHN DO, SUSAN Hernandez Ot F32.9 MAJOR DEPRESSIVE DISORDER, SINGLE EPISOD 09/11/2019 JOHN DO, SUSAN Hernandez Ot I 10 ESSENTIAL (PRIMARY) HYPERTENSION 09/11/2019 JOHN DO, SUSAN Hernandez Ot I25.2 OLD MYOCARDIAL INFARCTION 09/11/2019 JOHN DO, SUSAN Hernandez Ot K21.9 GASTRO-ESOPHAGEAL REFLUX DISEASE WITHOUT 09/11/2019 JOHN DO, SUSAN Hernandez Ot M17.11 UNILATERAL PRIMARY OSTEOARTHRITIS, RIGHT 09/11/2019 JOHN DO, SUSAN Hernandez Ot Z87.891 PERSONAL HISTORY OF NICOTINE DEPENDENCE 09/11/2019 JOHN DO, SUSAN Hernandez Ot Z90.5 ACQUIRED ABSENCE OF KIDNEY 09/11/2019 JOHN DO, SUSAN Hernandez Ot 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 ACQUIRED ABSENCE OF SPLEEN 09/11/2019 JOHN DO, SUSAN Hernandez Ot Z95.818 PRESENCE OF OTHER CARDIAC IMPLANTS AND G 10/10/2019 JOHN DO, SUSAN Hernandez Ot M25.561 PAIN IN RIGHT KNEE 10/10/2019 JOHN DO, SUSAN Hernandez Ot M25.562 PAIN IN LEFT KNEE 10/10/2019 JOHN DO, SUSAN Hernandez Ot Z90.5 ACQUIRED ABSENCE OF KIDNEY 10/10/2019 JOHN DO, SUSAN Hernandez Ot Z96.651 PRESENCE OF RIGHT ARTIFICIAL KNEE JOINT 12/11/2019 JOHN DO, SUSAN Hernandez Ot M25.561 PAIN IN RIGHT KNEE 12/11/2019 JOHN DO, SUSAN Hernandez Ot M25.562 PAIN IN LEFT KNEE 12/11/2019 JOHN DO, SUSAN Hernandez Ot Z90.5 ACQUIRED ABSENCE OF KIDNEY 12/11/2019 JOHN DO, SUSAN Hernandez Ot Z96.651 PRESENCE OF RIGHT ARTIFICIAL KNEE JOINT 12/28/2019 JOHN DO, SUSAN Hernandez Ot Z47.1 AFTERCARE FOLLOWING JOINT REPLACEMENT LIN 12/28/2019 JOHN DO, SUSAN Hernandez Ot Z90.5 ACQUIRED ABSENCE OF KIDNEY 12/28/2019 JOHN DO, SUSAN Hernandez Ot Z96.651 PRESENCE OF RIGHT ARTIFICIAL KNEE JOINT 03/18/2020 DAMARI DO, JESSICA K Ot E03.9 HYPOTHYROIDISM, UNSPECIFIED 03/18/2020 DAMARI DO, JESSICA K Ot E78.00 PURE HYPERCHOLESTEROLEMIA, UNSPECIFIED 03/18/2020 DAMARI DO JESSICA K Ot F32.9 MAJOR DEPRESSIVE DISORDER, SINGLE EPISOD 03/18/2020 DAMARI DO JESSICA K Ot F41.9 ANXIETY DISORDER, UNSPECIFIED 03/18/2020 DAMARI DO JESSICA K Ot G89.29 OTHER CHRONIC PAIN 03/18/2020 KAPAA DO, JESSICA Sutherland Ot I10 ESSENTIAL (PRIMARY) HYPERTENSION 03/18/2020 KAPAA DO, JESSICA Sutherland Ot I25.10 ATHSCL HEART DISEASE OF [place] CORONARY 03/18/2020 DAMARI , JESSICA Sutherland Ot I25.2 OLD MYOCARDIAL INFARCTION 03/18/2020 [facility], JESSICA Sutherland Ot K57.32 DVTRCLI OF LG INT W/O PERFORATION OR ABS 03/18/2020 [facility], JESSICA Sutherland Ot M54.9 DORSALGIA, UNSPECIFIED 03/18/2020 KAPAA DO, JESSICA Sutherland Ot R10.9 UNSPECIFIED ABDOMINAL PAIN 03/18/2020 DAMARI DO, JESSICA Sutherland Ot Z79.82 [facility] (CURRENT) USE OF ASPIRIN 03/18/2020 [facility], JESSICA Sutherland Ot Z79.891 [facility] (CURRENT) USE OF OPIATE ANALGE 03/18/2020 [facility], JESSICA Sutherland Ot Z85.528 PERSONAL HISTORY OF OTHER MALIGNANT NEOP 03/18/2020 [facility] JESSICA Sutherland Ot Z87.891 PERSONAL HISTORY OF NICOTINE DEPENDENCE 03/18/2020 [facility] JESSICA Sutherland Ot Z88.0 ALLERGY STATUS TO PENICILLIN 03/18/2020 [facility] JESSICA Sutherland Ot Z90.5 ACQUIRED ABSENCE OF KIDNEY 03/18/2020 [facility] JESSICA Sutherland Ot Z95.5 PRESENCE OF CORONARY ANGIOPLASTY IMPLANT Procedures Code Description Performed By Per formed On [id number] RE PLACE OF R KNEE JT WITH SYNTH SUB, MINA 09/09/2019 Results Test Result Range [id number] - 10/10/16 08:30 Serum or plasma urea nitrogen measurement (mass/volume ) 18 mg/dL 7-18 Serum or plasma creatinine measurement (mass/volume) 1.31 mg/dL 0.60-1.30 Serum or plasma urea nitrogen/creatinine mass ratio 14 NRG Serum or plasma creatinine measurement w ith calculation of estimated glomerular filtration rate 54 NRG Methicillin resistant Staphylococcus aur eus (MRSA) screening culture - 08/27/19 11:50 Methicillin resistant Staphylococcus aureus (MRSA) scr eening culture NEG NRG Complete blood count (CBC) with automate d white blood cell (WBC) differential - 08/27/19 11:55 Blood leukocytes automated count (number/volume) 7.8 10*3/uL 4.3-11.0 Blood erythrocytes automated count (number/volume) 4.22 10*6/uL 4.35-5.85 Venous blood hemoglobin measurement (mass/volume) 13.2 g/dL 13.3-17.7 Blood hematocrit (volume fraction) 40 % 40-54 Automated erythrocyte mean corpuscular volume 96 [ foz_us] 80-99 Automated erythrocyte mean corpuscular h emoglobin (mass per erythrocyte) 31 pg 25-34 Automated erythrocyte mean corpuscular h emoglobin concentration measurement (mass/volume) 33 g/dL 32-36 Automated erythrocyte distribution width ratio 13. 4 % 10.0- 14.5 Automated blood platelet count (count/volume) 241 10*3/uL 130-400 Automated blood platelet mean volume measurement 10.5 [foz_us] 7.4-10.4 Automated blood neutrophils/100 leukocytes 42 % 42-75 Automated blood lymphocytes/100 leukocytes 34 % 12-44 Blood monocytes/100 leukocytes 17 % 0-12 Automated blood eosinophils/100 leukocytes 6 % 0-10 Automated blood basophils/100 leukocytes 1 % 0-10 Blood neutrophils automated count (number/volume) 3.2 10*3 1.8-7.8 Blood lymphocytes automated count (number/volume) 2.7 10*3 1.0-4.0 Blood monocytes automated count (number/volume) 1. 3 10*3 0.0-1.0 Automated eosinophil count 0.5 10*3/uL 0 .0-0.3 Automated blood basophil count (count/volume) 0.1 10*3/uL 0.0-0.1 PT panel in platelet poor plasma by coag ulation assay - 08/27/19 11:55 Prothrombin time (PT) in platelet poor plasma by coagu lation assay 14.6 s 12.2-14.7 INR in platelet poor plasma or blood by coagulation as say 1.1 0.8-1.4 Whole blood basic metabolic panel - 04/08 11:55 Serum or plasma sodium measurement (moles/volume) 141 mmol/L 135-145 Serum or plasma potassium measurement (moles/volume) 4.6 mmol/L 3.6-5.0 Serum or plasma chloride measurement (moles/volume) 110 mmol/L 98-107 Carbon dioxide 20 mmol/L 21-32 Serum or plasma anion gap determination (moles/volume) 11 mmol/L 5-14 Serum or plasma urea nitrogen measurement (mass/volume ) 21 mg/dL 7-18 Serum or plasma creatinine measurement (mass/volume) 1.30 mg/dL 0.60-1.30 Serum or plasma urea nitrogen/creatinine mass ratio 16 NRG Serum or plasma creatinine measurement w ith calculation of estimated glomerular filtration rate 54 NRG Serum or plasma glucose measurement (mass/volume) 109 mg/dL 70-105 Serum or plasma calcium measurement (mass/volume) 8.7 mg/dL 8.5-10.1 Blood type T Indirect antibody screen [facility] - 08/27/19 11:55 ABO+Rh group AP NRG Blood group antibody screen NEGATIVE NR G Complete urinalysis with reflex to cultu re - 08/27/19 12:00 Urine color determination YELLOW NRG Urine clarity determination CLEAR NR G Urine pH measurement by test strip 5.5 5-9 Specific gravity of urine by test strip 1.015 1.016-1.022 Urine protein assay by test strip, semi-quantitative NEGATIVE NEGATIVE Urine glucose detection by automated test strip NE GATIVE NEGATIVE Erythrocytes detection in urine sediment by light micr oscopy NEGATIVE NEGATIVE Urine ketones detection by automated test strip NE GATIVE NEGATIVE Urine nitrite detection by test strip NEGATIVE NEGATIVE Urine total bilirubin detection by test strip NEGA TIVE NEGATIVE Urine urobilinogen measurement by automated test strip (mass/volume) 0.2 mg/dL < = 1.0 Urine leukocyte esterase detection by dipstick NEG ATIVE NEGATIVE Automated urine sediment erythrocyte cou nt by microscopy (number/high power field) NONE NRG Automated urine sediment leukocyte count by microscopy (number/high power field) NONE NRG Bacteria detection in urine sediment by light microsco py NEGATIVE NRG Crystals detection in urine sediment by light microsco py NONE NRG Casts detection in urine sediment by light microscopy NONE NRG Mucus detection in urine sediment by light microscopy NEGATIVE NRG Complete urinalysis with reflex to culture NO NRG Blood type T Indirect antibody screen [facility] - 09/09/19 06:30 WRISTBAND NUMBER [id number] NRG ABO+Rh group AP NRG Blood group antibody screen NEGATIVE NR G Automated blood complete blood count (he mogram) panel - 09/10/19 05:10 Blood leukocytes automated count (number/volume) 13.6 10*3/uL 4.3-11.0 Blood erythrocytes automated count (number/volume) 3.42 10*6/uL 4.35-5.85 Venous blood hemoglobin measurement (mass/volume) 10.6 g/dL 13.3-17.7 Blood hematocrit (volume fraction) 33 % 40-54 Automated erythrocyte mean corpuscular volume 96 [ foz_us] 80-99 Automated erythrocyte mean corpuscular h emoglobin (mass per erythrocyte) 31 pg 25-34 Automated erythrocyte mean corpuscular h emoglobin concentration measurement (mass/volume) 32 g/dL 32-36 Automated erythrocyte distribution width ratio 13. 1 % 10.0- 14.5 Automated blood platelet count (count/volume) 213 10*3/uL 130-400 Automated blood platelet mean volume measurement 10.8 [foz_us] 7.4-10.4 Whole blood basic metabolic panel - 08/21 10/09 05:10 Serum or plasma sodium measurement (moles/volume) 135 mmol/L 135-145 Serum or plasma potassium measurement (moles/volume) 4.3 mmol/L 3.6-5.0 Serum or plasma chloride measurement (moles/volume) 107 mmol/L 98-107 Carbon dioxide 17 mmol/L 21-32 Serum or plasma anion gap determination (moles/volume) 11 mmol/L 5-14 Serum or plasma urea nitrogen measurement (mass/volume ) 23 mg/dL 7-18 Serum or plasma creatinine measurement (mass/volume) 1.38 mg/dL 0.60-1.30 Serum or plasma urea nitrogen/creatinine mass ratio 17 NRG Serum or plasma creatinine measurement w ith calculation of estimated glomerular filtration rate 51 NRG Serum or plasma glucose measurement (mass/volume) 191 mg/dL 70-105 Serum or plasma calcium measurement (mass/volume) 7.6 mg/dL 8.5-10.1 Automated blood complete blood count (he mogram) panel - 09/11/19 05:37 Blood leukocytes automated count (number/volume) 12.9 10*3/uL 4.3-11.0 Blood erythrocytes automated count (number/volume) 3.61 10*6/uL 4.35-5.85 Venous blood hemoglobin measurement (mass/volume) 11.2 g/dL 13.3-17.7 Blood hematocrit (volume fraction) 35 % 40-54 Automated erythrocyte mean corpuscular volume 96 [ foz_us] 80-99 Automated erythrocyte mean corpuscular h emoglobin (mass per erythrocyte) 31 pg 25-34 Automated erythrocyte mean corpuscular h emoglobin concentration measurement (mass/volume) 32 g/dL 32-36 Automated erythrocyte distribution width ratio 13. 9 % 10.0- 14.5 Automated blood platelet count (count/volume) 212 10*3/uL 130-400 Automated blood platelet mean volume measurement 11.2 [foz_us] 7.4-10.4 Whole blood basic metabolic panel - 08/21 11/06 05:37 Serum or plasma sodium measurement (moles/volume) 141 mmol/L 135-145 Serum or plasma potassium measurement (moles/volume) 4.8 mmol/L 3.6-5.0 Serum or plasma chloride measurement (moles/volume) 111 mmol/L 98-107 Carbon dioxide 20 mmol/L 21-32 Serum or plasma anion gap determination (moles/volume) 10 mmol/L 5-14 Serum or plasma urea nitrogen measurement (mass/volume ) 20 mg/dL 7-18 Serum or plasma creatinine measurement (mass/volume) 1.31 mg/dL 0.60-1.30 Serum or plasma urea nitrogen/creatinine mass ratio 15 NRG Serum or plasma creatinine measurement w ith calculation of estimated glomerular filtration rate 54 NRG Serum or plasma glucose measurement (mass/volume) 87 mg/dL 70-105 Serum or plasma calcium measurement (mass/volume) 8.1 mg/dL 8.5-10.1 Complete blood count (CBC) with automate d white blood cell (WBC) differential - 03/16/20 04:55 Blood leukocytes automated count (number/volume) 13.2 10*3/uL 4.3-11.0 Blood erythrocytes automated count (number/volume) 4.33 10*6/uL 4.35-5.85 Venous blood hemoglobin measurement (mass/volume) 13.4 g/dL 13.3-17.7 Blood hematocrit (volume fraction) 41 % 40-54 Automated erythrocyte mean corpuscular volume 95 [ foz_us] 80-99 Automated erythrocyte mean corpuscular h emoglobin (mass per erythrocyte) 31 pg 25-34 Automated erythrocyte mean corpuscular h emoglobin concentration measurement (mass/volume) 33 g/dL 32-36 Automated erythrocyte distribution width ratio 13. 9 % 10.0- 14.5 Automated blood platelet count (count/volume) 254 10*3/uL 130-400 Automated blood platelet mean volume measurement 10.3 [foz_us] 7.4-10.4 Automated blood neutrophils/100 leukocytes 69 % 42-75 Automated blood lymphocytes/100 leukocytes 19 % 12-44 Blood monocytes/100 leukocytes 10 % 0-12 Automated blood eosinophils/100 leukocytes 2 % 0-10 Automated blood basophils/100 leukocytes 0 % 0-10 Blood neutrophils automated count (number/volume) 9.1 10*3 1.8-7.8 Blood lymphocytes automated count (number/volume) 2.5 10*3 1.0-4.0 Blood monocytes automated count (number/volume) 1. 4 10*3 0.0-1.0 Automated eosinophil count 0.3 10*3/uL 0 .0-0.3 Automated blood basophil count (count/volume) 0.1 10*3/uL 0.0-0.1 Comprehensive metabolic panel - 03/16/20 04:55 Serum or plasma sodium measurement (moles/volume) 140 mmol/L 135-145 Serum or plasma potassium measurement (moles/volume) 4.4 mmol/L 3.6-5.0 Serum or plasma chloride measurement (moles/volume) 107 mmol/L 98-107 Carbon dioxide 21 mmol/L 21-32 Serum or plasma anion gap determination (moles/volume) 12 mmol/L 5-14 Serum or plasma urea nitrogen measurement (mass/volume ) 17 mg/dL 7-18 Serum or plasma creatinine measurement (mass/volume) 1.18 mg/dL 0.60-1.30 Serum or plasma urea nitrogen/creatinine mass ratio 14 NRG Serum or plasma creatinine measurement w ith calculation of estimated glomerular filtration rate > NRG Serum or plasma glucose measurement (mass/volume) 114 mg/dL 70-105 Serum or plasma calcium measurement (mass/volume) 9.4 mg/dL 8.5-10.1 Serum or plasma total bilirubin measurement (mass/volu me) 0.3 mg/dL 0.1-1.0 Serum or plasma alkaline phosphatase ciaran surement (enzymatic activity/volume) 81 U/L 40-136 Serum or plasma aspartate aminotransfera se measurement (enzymatic activity/volume) 22 U/L 5-34 Serum or plasma alanine aminotransferase measurement (enzymatic activity/volume) 18 U/L 0-55 Serum or plasma protein measurement (mass/volume) 8.4 g/dL 6.4-8.2 Serum or plasma albumin measurement (mass/volume) 4.3 g/dL 3.2-4.5 CALCIUM CORRECTED 9.2 mg/dL 8.5-10.1 Serum or plasma amylase measurement (enz ymatic activity/volume) - 03/16/20 04:55 Serum or plasma amylase measurement (enzymatic activit y/volume) 82 U/L 25-125 PT panel in platelet poor plasma by coag ulation assay - 03/16/20 04:55 Prothrombin time (PT) in platelet poor plasma by coagu lation assay 13.3 s 12.2-14.7 INR in platelet poor plasma or blood by coagulation as say 1.0 0.8-1.4 Activated partial thromboplastin time (a PTT) in platelet poor plasma bycoagulation assay - 03/16/20 04:55 Activated partial thromboplastin time (a PTT) in platelet poor plasma bycoagulation assay 39 s 24-35 Lipase - 03/16/20 04:55 Lipase 93 U/L 8-78 Complete urinalysis with reflex to cultu re - 03/16/20 05:45 Urine color determination YELLOW NRG Urine clarity determination CLEAR NR G Urine pH measurement by test strip 5.5 5-9 Specific gravity of urine by test strip 1.020 1.016-1.022 Urine protein assay by test strip, semi-quantitative NEGATIVE NEGATIVE Urine glucose detection by automated test strip NE GATIVE NEGATIVE Erythrocytes detection in urine sediment by light micr oscopy TRACE-L NEGATIVE Urine ketones detection by automated test strip NE GATIVE NEGATIVE Urine nitrite detection by test strip NEGATIVE NEGATIVE Urine total bilirubin detection by test strip NEGA TIVE NEGATIVE Urine urobilinogen measurement by automated test strip (mass/volume) 0.2 mg/dL < = 1.0 Urine leukocyte esterase detection by dipstick NEG ATIVE NEGATIVE Automated urine sediment erythrocyte cou nt by microscopy (number/high power field) NONE NRG Automated urine sediment leukocyte count by microscopy (number/high power field) NONE NRG Bacteria detection in urine sediment by light microsco py NEGATIVE NRG Squamous epithelial cells detection in u rine sediment by light microscopy 0-2 NRG Crystals detection in urine sediment by light microsco py NONE NRG Casts detection in urine sediment by light microscopy NONE NRG Mucus detection in urine sediment by light microscopy NEGATIVE NRG Complete urinalysis with reflex to culture NO NRG Complete blood count (CBC) with automate d white blood cell (WBC) differential - 03/29/20 14:39 Blood leukocytes automated count (number/volume) 8.0 10*3/uL 4.3-11.0 Blood erythrocytes automated count (number/volume) 4.24 10*6/uL 4.35-5.85 Venous blood hemoglobin measurement (mass/volume) 13.0 g/dL 13.3-17.7 Blood hematocrit (volume fraction) 40 % 40-54 Automated erythrocyte mean corpuscular volume 94 [ foz_us] 80-99 Automated erythrocyte mean corpuscular h emoglobin (mass per erythrocyte) 31 pg 25-34 Automated erythrocyte mean corpuscular h emoglobin concentration measurement (mass/volume) 33 g/dL 32-36 Automated erythrocyte distribution width ratio 14. 5 % 10.0- 14.5 Automated blood platelet count (count/volume) 446 10*3/uL 130-400 Automated blood platelet mean volume measurement 10.2 [foz_us] 7.4-10.4 Automated blood neutrophils/100 leukocytes 46 % 42-75 Automated blood lymphocytes/100 leukocytes 39 % 12-44 Blood monocytes/100 leukocytes 11 % 0-12 Automated blood eosinophils/100 leukocytes 3 % 0-10 Automated blood basophils/100 leukocytes 1 % 0-10 Blood neutrophils automated count (number/volume) 3.7 10*3 1.8-7.8 Blood lymphocytes automated count (number/volume) 3.1 10*3 1.0-4.0 Blood monocytes automated count (number/volume) 0. 9 10*3 0.0-1.0 Automated eosinophil count 0.3 10*3/uL 0 .0-0.3 Automated blood basophil count (count/volume) 0.1 10*3/uL 0.0-0.1 Capillary blood glucose measurement by g lucometer (mass/volume) - 03/29/20 14:42 Capillary blood glucose measurement by glucometer (mas s/volume) 147 mg/dL 70-110 Encounters ACCT No. Visit Date/Time Discharge Status Pt. Type Provider Facility Loc./Unit Complaint [id number] 05/07/2015 08:24:59 ACT Document Registration [id number] 03/16/2020 04:27:00 08:20:00 DIS Outpatient JESSICA WETZEL DO, V [facility] [address] ER STOMACH CRAMPS [id number] 11/10/2019 13:37:00 00:01:00 DIS Outpatient SUSAN LOPEZ DO [facility] [address] REHAB S/P TKR [id number] 09/09/2019 06:00:00 15:30:00 DIS Inpatient SUSAN LOPEZ DO Via [facility] [address] 4TH PRIMARY OSTEOARTHRITIS RIGHT KNEE [id number] 08/27/2019 11:19:00 15:00:00 DIS Outpatient SUSAN LOPEZ DO [facility] [address] PREOP PRIMARY OSTEOAR THRITIS RIGHT KNEE [id number] 06/24/2019 11:32:00 23:59:59 CLS Outpatient CHERELLE BARBER [facility] [address] CARD CAD [id number] 11/27/2018 08:22:00 23:59:59 CLS Outpatient GHAZALA JIM MD [facility] [address] RAD RADICULOPATHY [id number] 08/26/2018 16:12:00 019 23:59:59 CLS Outpatient VERITO DAVID [facility] [address] RAD BACK PAIN [id number] 07/23/2018 09:17:00 11:57:00 DIS Outpatient MILA ALMEIDA APRN [facility] [address] REHAB R SCIATICA [id number] 10/23/2017 12:00:00 23:59:59 CLS Outpatient CHERELLE BARBER [facility] [address] CARD I25.10 CAD [id number] 09/17/2017 13:01:00 018 23:59:59 CLS Outpatient JOHN DARLING SUSAN Hernandez [facility] [address] RAD LEFT HAND PAIN [id number] 02/13/2017 08:45:00 017 10:51:00 DIS Outpatient SCOOTER PHILIPPE TREATING INSPECTOR [facility] [address] REHAB S/P L KNEE SCOPE [id number] 10/10/2016 08:17:00 017 23:59:59 CLS Outpatient KINSEY ISAAC TAB [facility] [address] RAD HISTORY OF AAA,REQUIRE D LABS FOR CT SCAN [id number] 12/05/2015 08:51:00 016 09:41:00 DIS Emergency CARMEN HOLLEY MD [facility] [address] ER L EYE REDNESS [id number] 06/11/2015 17:00:00 20:23:00 DIS Emergency VERITO DAVID [facility] [address] ER R FOOT PAIN/SWELLING [id number] 06/02/2015 08:40:00 23:59:59 CLS Outpatient CHERELLE BARBER [facility] [address] CARD CAD CARTOID ART ERIAL DISEASE HLD PAD [id number] 05/07/2015 08:24:00 09:22:00 DIS Outpatient EARL MOSS MD [facility] [address] CARD DDD,SIJD [id number] 04/30/2015 08:20:00 015 23:59:59 CLS Outpatient ARABELLA ESCAMILLA [facility] [address] RAD LBP [id number] 08/04/2014 07:57:00 014 13:20:00 DIS Outpatient SUSAN LOPEZ DO [facility] [address] SDC RIGHT TORN MENI SCUS [id number] 07/21/2014 10:20:00 014 23:59:59 CLS Outpatient SUSAN LOPEZ DO [facility] [address] PREOP RIGHT TORN MENI SCUS [id number] 05/21/2014 15:27:00 014 23:59:59 CLS Outpatient SUSAN LOPEZ DO [facility] [address] RAD RT KNEE PAIN [id number] 05/05/2014 08:30:00 13:25:00 [facility]DR[facility];RIGHT TRIGGER FINGER [id number] 04/28/2014 11:56:00 23:59:59 CLS Outpatient SUSAN LOPEZ DO [facility] [address] PREOP RT.CARPAL TUNNE L SYNDROME;RIGHT RING TRIGGER FINGR [id number] 04/23/2014 10:55:00 23:59:59 CLS Outpatient ANGELICA BROWER MD [facility] [address] CARD RENAL CA [id number] 03/26/2014 14:28:00 23:59:59 CLS Outpatient CHERELLE BARBER [facility] [address] LAB ACUTE HYPERKALE TAMIR [id number] 02/03/2014 15:28:00 08:37:00 DIS Outpatient CHULA LAWS MD [facility] [address] REHAB BACK PAIN [id number] 03/23/2014 06:57:00 23:59:59 CLS Outpatient CHERELLE BARBER [facility] [address] LAB HLD [id number] 03/23/2014 06:56:00 23:59:59 CLS Outpatient ANGELICA BROWER MD [facility] [address] LAB NEOPLASMA OF KIDNEY,HYP ERTROPHY [id number] 02/04/2014 06:58:00 23:59:59 CLS Outpatient SUSAN ARRIAZA MD [facility] [address] RAD HISTORY MESENTERIC ART CHADD ANYURISM [id number] 02/02/2014 07:36:00 23:59:59 CLS Outpatient SUSAN ARRIAZA MD [facility] [address] LAB MERENTERIC ARTERY ANEU RYSM [id number] 01/20/2014 15:49:00 23:59:59 CLS Outpatient CHULA LAWS MD [facility] [address] RAD BILAT KNEE PAIN [id number] 10/14/2013 14:09:00 08:30:00 DIS Outpatient JOHN SUSAN DARLING [facility] [address] REHAB L SHOULDER S/P RCR [id number] 09/29/2013 07:04:00 23:59:59 CLS Outpatient CHERELLE BARBER [facility] [address] LAB HLD [id number] 09/29/2013 06:56:00 23:59:59 CLS Outpatient ANGELICA BROWER MD [facility] [address] LAB RENAL CA,BPH [id number] 08/05/2013 10:57:00 20:00:00 DIS Outpatient SUSAN LOPEZ DO [facility] LEFT SHOULDER [id number] 07/31/2013 11:50:00 23:59:59 CLS Outpatient SUSAN LOPEZ DO [facility] [address] PREOP LEFT SHOULDER P AIN [id number] 07/28/2013 15:49:00 23:59:59 CLS Outpatient CHULA LAWS MD [facility] [facility] [address] RAD ILEUS [id number] 07/01/2013 14:15:00 08:20:00 DIS Outpatient SUSAN LOPEZ DO [facility] [address] REHAB L SHOULDER ADHE SIVE CAPSULITIS [id number] 05/28/2013 07:53:00 23:59:59 CLS Outpatient CHERELLE BARBER [facility] [address] RAD CAD [id number] 04/08/2013 10:55:00 23:59:59 CLS Outpatient ANGELICA BROWER MD [facility] [address] RAD LT RENAL CELL CA [id number] 04/03/2013 07:21:00 23:59:59 CLS Outpatient ANGELICA BROWER MD [facility] [address] LAB CAD,HYPERLIPIDEMIA,STAT [place] [id number] 04/03/2013 07:14:00 23:59:59 CLS Outpatient CHANTEL BRADY FACCEPIFANIO FACP CC DS [facility] [address] LAB STATIN [place],CAD,HYPERLIPIDEMIA [id number] 01/28/2013 15:34:00 013 23:59:59 CLS Outpatient [id number] 03/29/2020 14:25:[address] Emergency TURK EVELYNE DARLING [facility] ER DIZZINESS;LEFT SIDED NUMBNES S [id number] 04/30/2015 08:21:00 Document Registration [id number] 04/30/2015 08:20:00 Document Registration [id number] 04/30/2015 08:20:00 Document Registration [id number] 04/30/2015 08:20:00 Document Registration [id number] 04/30/2015 08:20:00 Document Registration [id number] 04/30/2015 08:20:00 Document Registration [id number] 04/30/2015 08:20:00 Document Registration [id number] 04/30/2015 08:20:00 Document Registration [id number] 10/16/2014 07:20:00 Document Registration [id number] 12/04/2012 07:33:00 Document Registration [id number] 08/28/2012 09:36:00 Document Registration [id number] 05/16/2012 14:38:00 Document Registration [id number] 05/14/2012 05:36:00 Document Registration [id number] 05/13/2012 08:27:00 Document Registration [id number] 03/10/2012 09:29:00 Document Registration [id number] 08/03/2011 09:30:00 Document Registration [id number] 05/29/2011 11:02:00 Document Registration [id number] 05/23/2011 05:40:00 Document Registration [id number] 02/09/2011 20:23:00 Document Registration [id number] 09/05/2010 05:36:00 Document Registration [id number] 08/31/2010 12:04:00 Document Registration [id number] 08/29/2010 09:50:00 Document Registration [id number] 07/05/2010 09:18:00 Document Registration [id number] 05/31/2010 09:50:00 Document Registration [id number] 03/01/2010 05:33:00 Document Registration [id number] 02/24/2010 08:17:00 Document Registration [id number] 02/15/2010 07:31:00 Document Registration [id number] 07/29/2009 05:49:00 Document Registration
[2020-03-29 15:26] LABS: BACTERIA,URINE NEGATIVE /HPF; WBC,URINE RARE /HPF
[2020-03-29 15:34] LABS: FIBRIN DEGRADATION PRODUCTS 1.32 UG/ML (0.00-0.49); INR 1.1 (0.8-1.4); PROTHROMBIN TIME PATIENT 14.2 SEC (12.2-14.7)
[2020-03-29 15:46] LABS: ALANINE AMINOTRANSFERASE 21 U/L (0-55); ALBUMIN 3.8 GM/DL (3.2-4.5); ALKALINE PHOSPHATASE 55 U/L (40-136); BILIRUBIN,TOTAL 0.3 MG/DL (0.1-1.0); BUN/CREATININE RATIO 13; CALCIUM 8.6 MG/DL (8.5-10.1); CARBON DIOXIDE 23 MMOL/L (21-32); CHLORIDE 109 MMOL/L (98-107); CREATINE KINASE 106 U/L (30-200); CREATININE SERUM 1.31 MG/DL (0.60-1.30); GFR ESTIMATED 54; GLUCOSE 147 MG/DL (70-105); SODIUM 140 MMOL/L (135-145); TOTAL PROTEIN 7.5 GM/DL (6.4-8.2)
[2020-03-29] MEDS ORDERED: CATHETER FLUSH 10 ML SYR IV PRN (16:00)
[2020-03-29] MEDS ORDERED: IOHEXOL 350 MG/ML 100 ML (OMNIPAQUE 350) VIAL IV ONE (16:00)
[2020-03-29] MEDS ORDERED: HOLD METFORMIN - RECEIVED CONTRAST 20 ML VIAL IV SCH (16:00)
[2020-03-29] MEDS ORDERED: NS 100 ML (IVPB) BAG IV ONE (16:00)
--- NOTE | 2020-03-29 16:27 | Diagnostic Imaging Report ---
INDICATION: Left weakness and headache. EXAMINATION: PA view of the chest is obtained with comparison made to study of 08/27/2019. FINDINGS: Heart size and pulmonary vascularity are within normal limits, and the lungs are clear, bilaterally. IMPRESSION: Unremarkable chest. Dictated by: Dictated on workstation # [id number]
--- NOTE | 2020-03-29 16:36 | Diagnostic Imaging Report ---
PROCEDURE: CT angiography of the head and CT angiography of the neck with and without contrast. TECHNIQUE: Contiguous noncontrast images were obtained from the skull base through the vertex. After intravenous contrast administration, helical CT angiography of the neck was performed. Source data was reformatted into 3D MIP projections. Delayed post contrast acquisition was also obtained. Auto Exposure Controls were utilized during the CT exam to meet ALARA standards for radiation dose reduction. INDICATION: Left-sided weakness. Dizziness. Blurred vision. COMPARISON: None. FINDINGS: CTA NECK: The visualized portions of the aortic arch demonstrate no evidence of aneurysm or dissection. There is conventional branching pattern of the great vessels of the aorta. The brachiocephalic artery is normal in course and caliber. The right and left common carotid origins are unremarkable. The origin of the left subclavian artery is patent. The common carotid arteries and internal carotid arteries demonstrate a tortuous course. There is atherosclerotic plaque in the bilateral carotid bulbs and proximal internal carotid arteries without flow-limiting stenosis. No evidence of dissection in the carotid systems. The external carotid arteries are patent and unremarkable. The right vertebral artery is dominant. The origin of the right vertebral artery is seen and is unremarkable. The origin of the left vertebral artery is seen and is unremarkable. There is no focal stenosis seen within the neck. There is no dissection. The vertebral arteries are well visualized to up to the level of the basilar artery. The osseous structures of the cervical spine are unremarkable. Included views through the lung apices demonstrate no focal consolidation. CTA BRAIN: Atherosclerotic plaque is seen in the esqueda of the bilateral distal internal carotid arteries without significant stenosis. No stenosis is seen in the bilateral anterior, middle, and posterior cerebral arteries. No evidence of aneurysm the [place]. In the posterior circulation, both of the vertebral arteries demonstrate normal opacification. Both the right and left PICA arteries are identified. The basilar artery is normal in course and caliber. The terminal branch vessels including the superior cerebellar arteries unremarkable. CT HEAD: No large acute territorial ischemia, mass, or hemorrhage. No midline shift or mass effect. Decreased attenuation is seen in the periventricular and subcortical white matter. The ventricles and cortical sulci are prominent. The basilar cisterns are patent and unremarkable. The calvarium is intact. The visualized paranasal sinuses are clear. IMPRESSION: 1. No stenosis or aneurysm in the [place]. 2. No stenosis or dissection the bilateral carotid and vertebral arteries. 3. No large acute territorial ischemia, mass, or hemorrhage. 4. Chronic microvascular disease. 5. Generalized parenchymal volume loss. Dictated by: Dictated on workstation # [id number]
[2020-03-29 17:51] VITALS: BP 149/91
== END 2020-03-29 17:48 | disposition home or self-care (01) ==
LOC: EDUNIT# 14:24 → ER 14:25
DX: T67.5XXA Heat exhaustion, unspecified, initial encounter (principal); E86.0 Dehydration; I25.10 Atherosclerotic heart disease of native coronary artery without angina pectoris; I10 Essential (primary) hypertension; I25.2 Old myocardial infarction; E78.00 Pure hypercholesterolemia, unspecified; E03.9 Hypothyroidism, unspecified; F41.9 Anxiety disorder, unspecified; F32.9 Major depressive disorder, single episode, unspecified; G89.29 Other chronic pain; M54.9 Dorsalgia, unspecified; Z88.0 Allergy status to penicillin; Z79.82 Long term (current) use of aspirin; Z85.528 Personal history of other malignant neoplasm of kidney; Z87.891 Personal history of nicotine dependence; Z90.5 Acquired absence of kidney; Z95.5 Presence of coronary angioplasty implant and graft; Z79.891 Long term (current) use of opiate analgesic; X30.XXXA Exposure to excessive natural heat, initial encounter
CPT/HCPCS: 36415; 70496; 70498; 71045; 80053; 81000; 82550; 82962; 84484; 85025; 85379; 85610; 85730; 93005; 93041

== ENCOUNTER 2020-04-08 05:39 | Outpatient (CLI) | payer MEDICARE, OTHER ==
[~2020-04-08] VITALS: Ht 172.7 cm; Wt 81.8 kg
== END 2020-04-08 14:02 | disposition home or self-care (01) ==
LOC: PREOP 05:39
PROVIDERS: ATTEND Surgery
DX: Z01.818 Encounter for other preprocedural examination (principal)

== ENCOUNTER 2020-04-14 08:56 | Day surgery (SDC) | payer MEDICARE, OTHER ==
--- NOTE | 2020-03-31 16:45 | HISTORY AND PHYSICAL ---
DATE OF SERVICE: DATE OF PROCEDURE: 03/31/2020 ATTENDING PRIMARY CARE PHYSICIAN: Dr. Augustine Stark. HISTORY OF PRESENT ILLNESS: The patient is a 74-year-old male known to us. He presented to the Emergency Department approximately 1 week ago with pain in the left lower abdominal quadrant. A CT scan was done, which did show uncomplicated sigmoid diverticulitis. He states that he does have intermittent episodes of constipation. This is his first episode of diverticulitis. He cannot recall when his last colonoscopy was; however, he thinks it was approximately 10 years ago. PAST MEDICAL HISTORY: Coronary artery disease, history of myocardial infarction, hypertension, hypercholesterolemia, degenerative joint disease, peripheral vascular disease, history of left renal cell cancer. PAST SURGICAL HISTORY: Left radical nephrectomy and splenectomy 2004, bilateral shoulder surgery, tonsillectomy, Mannie fundoplication 09/2008, abdominal endovascular stent placement 2010, right carpal tunnel release and trigger finger release 2013, right knee arthroscopy 2016, right carpal tunnel release 2017, right total knee arthroplasty 08/2019. ALLERGIES: PENICILLIN. MEDICATIONS: Levothyroxine 50 mcg daily, metoprolol 25 mg daily, paroxetine 20 mg daily, simvastatin 40 mg daily, nitroglycerin p.r.n. SOCIAL HISTORY: Negative smoke, negative alcohol. FAMILY HISTORY: Father, myocardial infarction, age 80. Sister melanoma. VITAL SIGNS: Stable. Blood pressure 111/70, currently 180.2 pounds at 5 feet 11 inches. REVIEW OF SYSTEMS: Well-nourished male in no acute distress. He is not experiencing any shortness of breath or difficulty breathing. No chest pain, palpitations, diaphoresis. No nausea, vomiting, with intermittent episodes of constipation, no red blood per rectum, no dark tarry stools. No fever, chills. No recent inadvertent weight loss. All other review of systems negative. PHYSICAL EXAMINATION: CHEST: Clear. Good breath sounds bilaterally. HEART: Regular, no murmurs. EXTREMITIES: No lower extremity edema, negative Homans sign. HEENT: No scleral icterus. NECK: No cervical lymphadenopathy. ABDOMEN: Soft with mild discomfort in the left lower abdominal quadrant. No peritoneal signs. SKIN: Warm, dry. ASSESSMENT AND PLAN: A 74-year-old male with uncomplicated diverticulitis. Due to his symptoms as well as absence from colonoscopy for approximately 10 years ago, we will proceed with a colonoscopy to rule out any other etiology for the inflammation as well as biopsies as appropriate. Job ID: [id number] DocumentID: [id number] Dictated Date: 03/17/2020 14:59:09 Service Control Operator Date: 03/17/2020 15:33:24 Dictated By: MICHELLE GASPAR MD
[~2020-04-14] VITALS: Ht 172.7 cm; Wt 818.8 kg
[2020-04-14] VITALS (14 sets, daily range): BP systolic 101–140; BP diastolic 63–96
[2020-04-14] MEDS ORDERED: NS IV 500 ML 500 ML ONE (09:07)
[2020-04-14] MEDS ORDERED: NS IV 500 ML 500 ML IV PRN (09:11)
[2020-04-14] MEDS ORDERED: fentaNYL INJECTION 100 MCG/2 ML AMP IVP ONE (09:15)
[2020-04-14] MEDS ORDERED: LIDOCAINE JELLY 2% 6 ML SYRINGE MM PRN (09:15)
[2020-04-14] MEDS ORDERED: MIDAZOLAM 5 MG/5 ML (VERSED) VIAL ONE ×2 (09:40→09:41)
[2020-04-14] MEDS ORDERED: LIDOCAINE JELLY 2% 6 ML SYRINGE ONE (09:40)
[2020-04-14] MEDS ORDERED: fentaNYL INJECTION 100 MCG/2 ML AMP ONE ×2 (09:40)
--- NOTE | 2020-04-14 09:52 | Progress Note-Pre Operative ---
Pre-Operative Progress Note H&P Reviewed The H&P was reviewed, patient examined and no changes noted. Date Seen by Provider: Apr 14, 2020 Time Seen by Provider: :30 Date H&P Reviewed: Apr 14, 2020 Time H&P Reviewed: :30 Pre-Operative Diagnosis: hx diverticulitis MICHELLE GASPAR MD Apr 14, 2020 09:52
--- NOTE | 2020-04-14 09:52 | Conscious Sedation/ASA ---
Conscious Sedation Pre-Proced Time 09:30 ASA Score 2 For ASA 3 and 4: Consider anesthesia and medical clearance. Also, for patients with a history of failed moderate sedation consider anesthesia. Airway Lungs Heart ASA score ASA 1: a normal healthy patient ASA 2: a patient with a mild systemic disease (mid diabetes, controlled hypertension, obesity ASA 3: a patient with a severe systemic disease that limits activity (angina, COPD, prior Myocardial infarction) ASA 4: a patient with an incapacitating disease that is a constant threat to life (CHF, renal failure) ASA 5: a moribund patient not expected to survive 24 hrs. (ruptured aneurysm) ASA 6: a declared brain- patient whose organs are being harvested. For emergent operations, add the letter E after the classification Mallampati Classification Grade 2 Sedation Plan Analgesia, Amnesia, Plan communicated to team members, Discussed options with patient/fam, Discussed risks with patient/fam The patient is an appropriate candidate to undergo the planned procedure, sedation, and anesthesia. The patient immediately re-assessed prior to indication. MICHELLE GASPAR MD Apr 14, 2020 09:52
--- NOTE | 2020-04-14 09:54 | Discharge Inst-Surgical ---
D/C Lap Instructions-HUBERT Follow Up Activity as tolerated High Fiber Diet 25g or more per day Avoid Alcohol, Caffeine, Spicy [place] and Acid foods. Drink 64 fluid oz or more of fluids per day. Symptoms to Report: Fever over 101 degree F, Nausea/Vomiting If any problems/questions: Contact your physician or go to Emergency Room MICHELLE GASPAR MD Apr 14, 2020 09:54
[2020-04-14] MEDS ORDERED: morphine INJ 10 MG/ML 1ML (SYR OR VIAL) IVP PRN ×2 (10:00)
[2020-04-14] MEDS ORDERED: HYDROcodone/APAP 5 MG/325 MG (LORTAB) TAB PO PRN (10:00)
[2020-04-14] MEDS: MIDAZOLAM 5 MG/5 ML (VERSED) VIAL IV PRN ×4 (10:00→10:15)
[2020-04-14] MEDS ORDERED: ACETAMINOPHEN 325 MG TABLET PO PRN (10:00)
[2020-04-14] MEDS ORDERED: ONDANSETRON 4 MG/2 ML (SDV) Z0FRAN IVP PRN (10:00)
--- NOTE | 2020-04-14 10:45 | Progress Note-Post Operative ---
Post-Operative Progess Note Surgeon (s)/Manager Proposal (s) Surgeon MICHELLE GASPAR MD Manager Proposal: none Pre-Operative Diagnosis hx diverticulitis Post-Operative Diagnosis mild chronic stage 2 ext and int hemorrhoids, moderate-severe sigmoid diverticulosis. Procedure & Operative Findings Date of Procedure 04/14/20 Procedure Performed/Findings colonoscopy Anesthesia Type cs Estimated Blood Loss Estimated blood loss (mL): minimal Specimens/Packing Specimens Removed none MICHELLE GASPAR MD Apr 14, 2020 10:45
--- NOTE | 2020-04-14 20:21 | OPERATIVE REPORT ---
DATE OF SERVICE: 04/14/2020 ATTENDING PRIMARY CARE PHYSICIAN: Dr. Augustine Stark. PREOPERATIVE DIAGNOSIS: History of diverticulitis. POSTOPERATIVE DIAGNOSES: Mild chronic stage II external and internal hemorrhoids, pzdrkigi-az-snvemx sigmoid diverticulosis, no signs of diverticulitis. PROCEDURE: Colonoscopy. SURGEON: Michelle Gaspar MD. ANESTHESIA: Conscious sedation. ESTIMATED BLOOD LOSS: Minimal. FINDINGS: Mild chronic stage II external and internal hemorrhoids, nexnshli-te-eozrmj sigmoid diverticulosis, no signs of diverticulitis. DISPOSITION: The patient tolerated the procedure well. INDICATIONS: The patient is a 74-year-old male known to us. He presented to the Emergency Department several weeks ago with significant left lower quadrant abdominal pain. A CT scan was performed, which did show uncomplicated sigmoid diverticulitis. He states that he does have intermittent episodes of constipation and this was his first episode of diverticulitis. His last colonoscopy he believes was greater than 10 years ago. He does not report any family history of colon cancer. DESCRIPTION OF PROCEDURE: The patient was brought to the endoscopy suite, laid in the left lateral decubitus position. After adequate IV pain and sedative medications and conscious sedation anesthesia, digital rectal examination was performed. Mild chronic stage II external and internal hemorrhoids were identified, which were not actively edematous nor inflamed and no bleeding. Normal sphincter tone was felt and there were no palpable masses. Prostate gland was palpable and appeared normal. The endoscope was then intubated to the anus and rectum gently insufflated. The endoscope was then advanced to the valves of Pierce of the rectum with no polyps or any neoplasms identified. Through the sigmoid colon, moderate to severe sigmoid diverticulosis identified. There were no mucosal inflammatory changes to indicate any diverticulitis. There were no polyps or any neoplasms identified as well. The endoscope was then advanced to the mid of the descending, transverse and ascending colon to the cecum. These segments were normal. No other lesions identified. The endoscope was then slowly withdrawn while taking a second look and suctioning of residual air with no additional findings. The patient tolerated the procedure well. We will recommend the necessary lifestyle and diet accommodation including the addition of fiber supplements to equal or exceed 30 grams daily as well as significant amounts of water to promote soft stools on a daily basis and to prevent the episodes of constipation. If he continues to be asymptomatic, he may wait 10 years for his next colonoscopy; however, sooner if he does develop symptoms. Job ID: [id number] DocumentID: [id number] Dictated Date: 04/14/2020 10:36:21 Security Operations Analyst Date: 04/14/2020 20:21:13 Dictated By: MICHELLE GASPAR MD
== END 2020-04-14 11:30 | disposition home or self-care (01) ==
LOC: ENDO 08:56
PROVIDERS: ATTEND Surgery
DX: K57.30 Diverticulosis of large intestine without perforation or abscess without bleeding (principal); K64.1 Second degree hemorrhoids; I25.10 Atherosclerotic heart disease of native coronary artery without angina pectoris; I10 Essential (primary) hypertension; E78.00 Pure hypercholesterolemia, unspecified; M19.91 Primary osteoarthritis, unspecified site; I73.9 Peripheral vascular disease, unspecified; I25.2 Old myocardial infarction; Z85.528 Personal history of other malignant neoplasm of kidney; Z96.651 Presence of right artificial knee joint; Z90.5 Acquired absence of kidney; Z90.81 Acquired absence of spleen; Z88.0 Allergy status to penicillin; Z79.890 Hormone replacement therapy

== ENCOUNTER → 2020-04-16 | Outpatient (CLI) | payer MEDICARE, OTHER ==
--- NOTE | 2020-04-16 11:33 | Diagnostic Imaging Report ---
PROCEDURE: US carotid duplex, bilateral. TECHNIQUE: Multiple real-time grayscale images were obtained over the carotid arteries in various projections, bilaterally. Additional spectral analysis and color Doppler duplex images were also obtained. INDICATION: Carotid occlusive disease. There is mild plaquing in both carotid bulbs and proximal left internal carotid artery. Velocities are normal bilaterally. No high-grade stenosis or occlusion is seen. Both vertebral arteries show antegrade flow. IMPRESSION: Mild bilateral carotid plaque. There is no evidence of a hemodynamically significant stenosis. Parameters based on the consensus panel Villanueva-Scale and Doppler ultrasound criteria published June 2003, Radiology, Volume 229. DOPPLER (peak systolic velocity M/S Right Left CCA 0.82 0.78 ICA Proximal 0.68 0.63 ICA Mid 0.68 0.79 ICA Distal 0.87 0.56 RATIO 1.07 1.02 ECA 0.89 0.93 VERT 0.38 0.43 Dictated by: Dictated on workstation # [id number]
== END ==
LOC: RAD 08:45
PROVIDERS: ATTEND Internal Medicine
DX: I65.23 Occlusion and stenosis of bilateral carotid arteries (principal)
CPT/HCPCS: 93880

== ENCOUNTER → 2022-01-11 | Outpatient (CLI) | payer MEDICARE, OTHER ==
[~2022-01-11] MED LIST changes: -ALPH1TAB8 PO; +BEANO150 UNI1 PO; -CIPR500T4 PO; +CIPR500T5 PO; +DICY20TA PO; -DICY20TA10 PO; -HYDR-3812 PO; -SULF1TAB35 PO; +SULF1TAB38 PO
--- NOTE | 2022-01-11 12:28 | Diagnostic Imaging Report ---
PROCEDURE: CT abdomen and pelvis without contrast. TECHNIQUE: Multiple contiguous axial images were obtained through the abdomen and pelvis without the use of intravenous contrast. Auto Exposure Controls were utilized during the CT exam to meet ALARA standards for radiation dose reduction. INDICATION: Gross hematuria and left lower quadrant pain. Correlation is made with prior CT from 03/16/2020. Lung bases are clear. There is some expansion and sclerosis involving lower right lateral rib, unchanged from prior CT. No focal liver mass is detected. Gallbladder is unremarkable. There is no biliary ductal dilatation. Pancreas unremarkable. The spleen and left kidney are surgically absent. There does appear to be a splenule in the left upper quadrant. Right kidney does contain cortical low-attenuation lesions, similar to prior study most suggestive of cysts. No calculi are seen. There is no hydronephrosis. Aorta is partially calcified but nonaneurysmal. There is a stent in the superior mesenteric artery. The right ureter is unremarkable. The bladder is decompressed. Bowel loops are of normal caliber. There is colonic diverticulosis, most extensive in the sigmoid colon but no evidence of acute diverticulitis. No free fluid or fluid collection is seen. There is a left para-midline fat-containing ventral hernia. No herniated bowel loops are detected. IMPRESSION: 1. Solitary right kidney with cortical renal cysts. No urinary tract calculi or obstruction is detected. 2. Status post left nephrectomy and splenectomy. 3. Uncomplicated diverticulosis. 4. Fat-containing left para-midline ventral hernia. Dictated by: Dictated on workstation # [id number]
== END ==
LOC: RAD 10:18
PROVIDERS: ATTEND Urology
DX: K57.90 Diverticulosis of intestine, part unspecified, without perforation or abscess without bleeding (principal); K43.9 Ventral hernia without obstruction or gangrene; N28.1 Cyst of kidney, acquired; Z90.5 Acquired absence of kidney; Z90.81 Acquired absence of spleen; Z85.528 Personal history of other malignant neoplasm of kidney
CPT/HCPCS: 74176

== ENCOUNTER → 2022-05-02 | Outpatient (CLI) | payer MEDICARE, OTHER ==
[~2022-05-02] VITALS: Ht 180 cm; Wt 81.0 kg
[~2022-05-02] MED LIST changes: +CATHETER FLUSH 10 ML SYR IVP PRN; +REGADENOSON 0.4 MG/5 ML SYR (LEXISCAN) IV ONE
[2022-05-02 09:12] VITALS: BP 165/101
--- NOTE | 2022-05-02 17:53 | STRESS TEST ---
DATE OF SERVICE: 05/02/2022 RESTING AND POST REGADENOSON TECHNETIUM-99M TETROFOSMIN SPECT CT IMAGING CLINICAL DIAGNOSIS: Coronary artery disease. Baseline images were carried out after injection of 10.06 mCi of technetium-99m Tetrofosmin. This was followed by 0.4 mg regadenoson and 32.6 mCi of technetium-99m Tetrofosmin for stress imaging. The electrocardiogram showed sinus rhythm at baseline. It did not change significantly with the regadenoson infusion. The patient noted mild shortness of breath following regadenoson infusion, which resolved in a few minutes. Review of images at rest and following stress indicates a predominantly fixed apical perfusion defect. Gated images show well preserved global left ventricular systolic function. Left ventricular ejection fraction is 58%. There is localized apical akinesis. CONCLUSIONS: 1. This study is indicative of an apical infarction with minimal nima-infarct ischemia. 2. Localized apical akinesis. 3. Well preserved global left ventricular systolic function with a calculated ejection fraction of 58%. Job ID: [id number] DocumentID: [id number] Dictated Date: 05/02/2022 14:16:52 Flight Test Engineer Date: 05/02/2022 17:52:43 Dictated By: EPIFANIO GOLDEN MD, MA, FACP, FACC,
== END ==
LOC: CARD 07:30
PROVIDERS: ATTEND Nurse Practitioner Family
DX: I25.10 Atherosclerotic heart disease of native coronary artery without angina pectoris (principal)
CPT/HCPCS: 78452; 93017; A9502

== ENCOUNTER → 2022-05-25 | Outpatient (CLI) | payer MEDICARE, OTHER ==
[~2022-05-25] VITALS: Ht 180.3 cm; Wt 82.7 kg
[~2022-05-25] MED LIST changes: -CATHETER FLUSH 10 ML SYR IVP PRN; +CYCL5TAB PO; -REGADENOSON 0.4 MG/5 ML SYR (LEXISCAN) IV ONE
== END | disposition home or self-care (01) ==
LOC: PREOP 05:29
PROVIDERS: ATTEND Surgery
DX: Z01.818 Encounter for other preprocedural examination (principal)

== ENCOUNTER 2022-06-01 10:45 | Day surgery (SDC) | payer MEDICARE, OTHER ==
[~2022-06-01] VITALS: Ht 180.3 cm; Wt 82.7 kg
[2022-06-01] VITALS (11 sets, daily range): BP systolic 132–143; BP diastolic 81–95
[2022-06-01] MEDS ORDERED: CLINDAMYCIN 600 MG/50 ML IVPB 50 ML IV ONE (11:15)
[2022-06-01] MEDS: LACTATED RINGERS 1,000 ML IV PRN ×2 (11:37→13:50)
--- NOTE | 2022-06-01 12:18 | Progress Note-Pre Operative ---
Pre-Operative Progress Note Date H&P Reviewed: Jun 01, 2022 Time H&P Reviewed: 12:15 History & Physical: H&P Reviewed, Patient Examed, No changes noted Pre-Operative Diagnosis: Incisional hernia BRONSON GILL APRN Jun 01, 2022 12:18
[2022-06-01] MEDS ORDERED: HYDR-3817 PO (12:19)
[2022-06-01] MEDS ORDERED: LIDOCAINE/EPI 2% 1:200,00 (XYLOCAINE) 10 ML VIAL ONE (12:20)
--- NOTE | 2022-06-01 12:20 | Discharge Inst-Surgical ---
D/C Lap Instructions-KIDO Reconcile Patient Problems Problems Reviewed?: Yes New, Converted, or Re-Newed RX: RX on Chart Follow Up Appt in 2 weeks Activity as tolerated No driving for 24 hours No driving while on pain medications Incentive Spirometry use every 2 hours while awake Regular Diet Symptoms to Report: Fever over 101 degree F, Nausea/Vomiting Infection Signs and Symptoms to report: Increased redness, Foul odor of wound, Increased drainage Bathing instructions: May shower Operative Area Clean/Dry; Keep incision clean/dry If any problems/questions: Contact your physician or go to Emergency Room BRONSON GILL APRN Jun 01, 2022 12:20
[2022-06-01] MEDS ORDERED: proPOfol 200 MG/20 ML (DIPRIVAN) VIAL IV ONE (12:29)
[2022-06-01] MEDS ORDERED: LIDOCAINE PF 2% 5 ML (XYLOCAINE) VIAL ONE (12:29)
[2022-06-01] MEDS ORDERED: ONDANSETRON 4 MG/2 ML (SDV) Z0FRAN ONE (12:29)
[2022-06-01] MEDS ORDERED: morphine INJ 10 MG/ML 1ML (SYR OR VIAL) IVP PRN (12:30)
[2022-06-01] MEDS ORDERED: fentaNYL INJ 100 MCG/2 ML AMP ONE (12:30)
[2022-06-01] MEDS ORDERED: ONDANSETRON 4 MG/2 ML (SDV) Z0FRAN IVP PRN ×2 (12:30→14:30)
[2022-06-01] MEDS ORDERED: ACETAMINOPHEN 325 MG TABLET PO PRN (12:30)
[2022-06-01] MEDS ORDERED: HYDROcodone/APAP 5 MG/325 MG (LORTAB) TAB PO ONE (12:30)
[2022-06-01] MEDS ORDERED: PHENYLEPHRINE 100 MCG/ML 10 ML (ANESTHESIA) SYR ONE (13:55)
[2022-06-01] MEDS ORDERED: SEVOFLURANE (ULTANE) 15 ML INHAL SOLN ONE (13:56)
--- NOTE | 2022-06-01 13:58 | Progress Note-Post Operative ---
Post-Operative Progess Note Surgeon (s)/Neurosurgical Nurse (s) Surgeon MICHELLE GASPAR MD Neurosurgical Nurse: kenny valencia SENIOR RECRUITMENT CONSULTANT Pre-Operative Diagnosis Incisional hernia Post-Operative Diagnosis same (2.5cm) Procedure & Operative Findings Date of Procedure 06/01/22 Procedure Performed/Findings open ventral abd inc hernia repair with mesh. Anesthesia Type general LMA Estimated Blood Loss Estimated blood loss (mL): minimal Specimens/Packing Specimens Removed none MICHELLE GASPAR MD Jun 01, 2022 13:58
[2022-06-01] MEDS ORDERED: HYDROmorphone 2 MG/ML VIAL (DILAUDID) IV ONE (14:30)
[2022-06-01] MEDS ORDERED: HYDROmorphone 2 MG/ML VIAL (DILAUDID) ONE (14:41)
--- NOTE | 2022-06-01 14:41 | Anesthesia-General Post-Op ---
General Patient Condition Mental Status/LOC: Same as Preop Cardiovascular: Satisfactory Nausea/Vomiting: Absent Respiratory: Satisfactory Pain: Controlled Complications: Absent Post Op Complications Complications None Follow Up Care/Instructions Patient Instructions None needed. Anesthesia/Patient Condition Patient Condition Patient is doing well, no complaints, stable vital signs, no apparent adverse anesthesia problems. No complications reported per nursing. [place] home [place] [facility] [place]: Yes BENSON HAYES CRNA Jun 01, 2022 14:41
--- NOTE | 2022-06-02 00:40 | OPERATIVE REPORT ---
DATE OF SERVICE: 06/01/2022 ATTENDING PRIMARY CARE PHYSICIAN: Dr. Stark. PREOPERATIVE DIAGNOSIS: Reducible symptomatic ventral abdominal incisional hernia. POSTOPERATIVE DIAGNOSIS: Reducible symptomatic ventral abdominal incisional hernia. PROCEDURE: Open ventral abdominal incisional hernia repair with mesh. SURGEON: Michelle Gaspar MD. ANESTHESIA: General laryngeal mask airway. ESTIMATED BLOOD LOSS: Minimal. FINDINGS: Same as postoperative diagnosis. DISPOSITION: The patient tolerated the procedure well. INDICATIONS: The patient is a 76-year-old male known to us. He is status post left nephrectomy as well as splenectomy from a midline laparotomy incision in 2004. He reports in the past 2 to 3 years, he developed a bulge just left of the midline in the supraumbilical region. This has grown larger in size and become symptomatic. He was seen by a physician and found to have a symptomatic reducible incisional hernia. He is otherwise eating well and having normal bowel movements. DESCRIPTION OF PROCEDURE: The patient was brought to the operating room, laid supine on the table. After adequate IV pain and sedative medications and general endotracheal intubation, the abdomen was prepped and draped in standard surgical fashion. A 0.5% Marcaine with epinephrine was then used to anesthetize the overlying skin in the left upper abdominal quadrant and a transverse skin incision made using a 15 blade. A vertical skin incision made along the previous midline incision was then made using a 15 blade. Subcutaneous tissue was then dissected using electrocautery. The hernia sac was identified and completely dissected out using blunt dissection as well as electrocautery. The defect was approximately 2.5 cm in size. There were some omental adhesions towards the anterior abdominal wall, which were taken down using electrocautery as well as blunt dissection with visualization of good hemostasis. An 8.0 coated polypropylene mesh was then placed into the defect and sutured transfascially in a concentric manner to the mesh using 0 Prolene interrupted sutures. Subcutaneous tissue was then reapproximated using 3-0 Vicryl interrupted suture. Skin was closed using 4-0 Monocryl running subcuticular suture. Wounds were then cleaned and covered with Dermabond. Wound was then covered with tonsil sponges followed by 4 x 4 gauze followed by an Op-Site followed by an abdominal binder. The patient tolerated the procedure well. We will start IV normal pain medication as well as a clear liquid diet. Once he is tolerating clears, has good pain control with oral pain medications, ambulating well. We will discharge him home where he will be instructed to do no heavy lifting or exertion for the next two weeks as well as to continue to use his abdominal binder, both day and night for the next two weeks and to remove the pressure dressing in approximately five days. Job ID: [id number] DocumentID: [id number] Dictated Date: 06/01/2022 14:04:16 Safety Pin Assembling Machine Operator Date: 06/02/2022 00:39:26 Dictated By: MICHELLE GASPAR MD
== END 2022-06-01 16:20 | disposition home or self-care (01) ==
LOC: SDC 10:45
PROVIDERS: ATTEND Surgery
DX: K43.2 Incisional hernia without obstruction or gangrene (principal); K22.70 Barrett's esophagus without dysplasia; I95.9 Hypotension, unspecified; I25.10 Atherosclerotic heart disease of native coronary artery without angina pectoris; D64.9 Anemia, unspecified; R00.0 Tachycardia, unspecified; I11.9 Hypertensive heart disease without heart failure; I12.9 Hypertensive chronic kidney disease with stage 1 through stage 4 chronic kidney disease, or unspecified chronic kidney disease; N18.30 Chronic kidney disease, stage 3 unspecified; I73.89 Other specified peripheral vascular diseases; I65.23 Occlusion and stenosis of bilateral carotid arteries; Z85.528 Personal history of other malignant neoplasm of kidney; Z90.5 Acquired absence of kidney; Z79.899 Other long term (current) drug therapy; Z87.891 Personal history of nicotine dependence
CPT/HCPCS: 49560; 49568; 87081; C1781

== ENCOUNTER 2022-11-16 13:45 | Outpatient (RCR) | payer MEDICARE, OTHER ==
[~2022-11-16 13:45] MED LIST changes: +HYDR-3817 PO
== END 2022-11-17 | disposition home or self-care (01) ==
PROVIDERS: ATTEND Nurse Practitioner Family
DX: M18.12 Unilateral primary osteoarthritis of first carpometacarpal joint, left hand (principal)

== ENCOUNTER 2022-12-14 12:52 | Outpatient (RCR) | payer MEDICARE, OTHER | END 2022-12-17 | disposition home or self-care (01) | PROVIDERS: ATTEND Nurse Practitioner Family | DX: M18.12 Unilateral primary osteoarthritis of first carpometacarpal joint, left hand (principal) ==

== ENCOUNTER 2023-01-16 12:46 | Outpatient (RCR) | payer MEDICARE, OTHER | END 2023-01-16 15:15 | disposition home or self-care (01) | PROVIDERS: ATTEND Nurse Practitioner Family | DX: M18.12 Unilateral primary osteoarthritis of first carpometacarpal joint, left hand (principal) ==